=== PATIENT | male | born 1945 | race Caucasian/White ===

== ENCOUNTER → 2019-01-25 | Outpatient (CLI) | payer MEDICARE, OTHER ==
[~2019-01-25] MED LIST: ASP325TEC PO; CATHETER FLUSH 10 ML SYR IV PRN; HOLD METFORMIN - RECEIVED CONTRAST 20 ML VIAL IV SCH; IOHEXOL 350 MG/ML 100 ML (OMNIPAQUE 350) VIAL IV ONE; NS 100 ML (IVPB) BAG IV ONE; RT-ALBUTEROL SULF 2.5 MG/3 ML PRE-MIX VIAL INH ONE; RT-ALBUTEROL SULF 2.5 MG/3 ML PRE-MIX VIAL ONE; TIOT18CA IH
[2019-01-25 13:56] LABS: BUN/CREATININE RATIO 12; CREATININE SERUM 0.74 MG/DL (0.60-1.30); GFR ESTIMATED > 60
--- NOTE | 2019-01-25 14:48 | Diagnostic Imaging Report ---
PROCEDURE: CT chest with contrast only. TECHNIQUE: Multiple contiguous axial images were obtained through the chest after administration of intravenous contrast. Auto Exposure Controls were utilized during the CT exam to meet ALARA standards for radiation dose reduction. DATE: January 25, 2019. COMPARISON: Chest radiographs May 21, 2010. INDICATION: 73-year-old male, shortness of breath. History of chronic obstructive pulmonary disease. FINDINGS: There is a right middle lobe mass on axial image 95 measuring 4.1 x 3.4 cm in axial dimension. There are peripheral predominantly linear opacities in the right lower lobe on axial image 115 and adjacent sequential images most likely relating to scarring and/or atelectasis. There are linear and/or reticulonodular opacities in the left lower lobe focally on axial image 107 which are most suspicious for buckle scarring or sequela of prior infectious or inflammatory etiology. If comparison CT imaging is available, comparison would be gladly made for evaluation of potential stability. There is no additional identified pulmonary nodule specifically concerning for additional site of malignancy. There is no pneumothorax. There is no pleural effusion. The central airways are patent. There is no identified pulmonary embolus. The main pulmonary artery is not abnormally dilated. There are coronary artery calcifications and additional areas of atherosclerotic disease. There is no pericardial effusion. There is a noncalcified right hilar lymph node on axial image 70 which measures 1.4 cm in short axis. 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 There is an additional calcified right hilar as well as additional calcified mediastinal lymph node which likely relates to sequela of prior granulomatous disease. There are small calcified lesions in the liver and spleen also compatible with sequela of prior granulomatous disease. The adrenal glands are unremarkable. There are prominent vascular calcifications. Additional evaluation of the imaged portions of the upper abdomen is unremarkable. There are median sternotomy wires. There is a chronic appearing fracture deformity of the inferior aspect of the left scapula well illustrated on sagittal image 168 and adjacent sequential images. There is no identified bone lesion to suggest bone metastasis. There is partially imaged cervical spine hardware. IMPRESSION: CT CHEST. 1. Right middle lobe mass concerning for malignancy measuring 4.1 x 3.4 cm in axial dimension. 2. 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 3. No identified additional lesion to suggest an additional site of metastatic disease. 4. Emphysema. Dictated by: Dictated on workstation # [id number]
== END ==
LOC: RAD 13:28
PROVIDERS: ATTEND Nurse Practitioner Family
DX: J43.9 Emphysema, unspecified (principal); R91.8 Other nonspecific abnormal finding of lung field; R59.0 Localized enlarged lymph nodes; F17.210 Nicotine dependence, cigarettes, uncomplicated; Z98.890 Other specified postprocedural states
CPT/HCPCS: 36415; 71260; 82565; 84520; 94060; 94726; 94729

== ENCOUNTER 2019-02-06 05:30 | Outpatient (CLI) | payer MEDICARE, OTHER ==
[~2019-02-06] VITALS: Ht 180 cm; Wt 68.1 kg
[~2019-02-06 05:30] MED LIST changes: -CATHETER FLUSH 10 ML SYR IV PRN; -HOLD METFORMIN - RECEIVED CONTRAST 20 ML VIAL IV SCH; -IOHEXOL 350 MG/ML 100 ML (OMNIPAQUE 350) VIAL IV ONE; -NS 100 ML (IVPB) BAG IV ONE; -RT-ALBUTEROL SULF 2.5 MG/3 ML PRE-MIX VIAL INH ONE; -RT-ALBUTEROL SULF 2.5 MG/3 ML PRE-MIX VIAL ONE
[2019-02-06] MEDS ORDERED: PRAV20TA3 PO (16:00)
[2019-02-06] MEDS ORDERED: CLOP75TA28 PO (16:00)
[2019-02-06] MEDS ORDERED: TAMS0.4C98 PO (16:00)
[2019-02-06] MEDS ORDERED: IPRA3AMP31 IH (16:00)
[2019-02-06] MEDS ORDERED: TIOT4MIS3 IH (16:00)
== END 2019-02-06 15:51 | disposition home or self-care (01) ==
LOC: PREOP 05:30
PROVIDERS: ATTEND Internal Medicine Critical Care Medicine
DX: Z01.818 Encounter for other preprocedural examination (principal)

== ENCOUNTER 2019-02-13 06:25 | Day surgery (SDC) | payer MEDICARE, OTHER ==
[2019-02-13] VITALS (9 sets, daily range): BP systolic 103–128; BP diastolic 57–95
[~2019-02-13] VITALS: Ht 180.2 cm; Wt 68.1 kg
[~2019-02-13 06:25] MED LIST changes: +CLOP75TA28 PO; +IPRA3AMP31 IH; +PRAV20TA3 PO; +TAMS0.4C98 PO; +TIOT4MIS3 IH
[2019-02-13] MEDS ORDERED: LIDOCAINE PF 1% 2 ML VIAL IJ ONE (06:26)
[2019-02-13] MEDS ORDERED: LIDOCAINE PF 2% 5 ML (XYLOCAINE) VIAL INJ ONE (06:26)
[2019-02-13] MEDS ORDERED: LACTATED RINGERS 1,000 ML IV STA (06:52)
[2019-02-13] MEDS ORDERED: LACTATED RINGERS 1,000 ML IV ONE ×2 (06:55→08:40)
[2019-02-13] MEDS ORDERED: proPOfol 200 MG/20 ML (DIPRIVAN) VIAL IV ONE (07:10)
[2019-02-13] MEDS ORDERED: SEVOFLURANE (ULTANE) 15 ML INHAL SOLN ONE ×2 (07:10→08:42)
[2019-02-13] MEDS ORDERED: fentaNYL INJECTION 100 MCG/2 ML AMP ONE (07:10)
[2019-02-13] MEDS ORDERED: MIDAZOLAM 2 MG/2 ML (VERSED) VIAL ONE (07:10)
[2019-02-13] MEDS ORDERED: ONDANSETRON 4 MG/2 ML (SDV) Z0FRAN ONE (07:11)
[2019-02-13] MEDS ORDERED: ROCURONIUM 10 MG/ML 5 ML SYRINGE IV ONE (07:11)
[2019-02-13] MEDS ORDERED: NEOSTIGMINE 3 MG/3 ML VIAL ONE (07:11)
[2019-02-13] MEDS ORDERED: LIDOCAINE PF 2% 5 ML (XYLOCAINE) VIAL ONE (07:11)
[2019-02-13] MEDS ORDERED: GLYCOPYRROLATE 0.2 MG/ML (ROBINUL) 2 ML VIAL ONE (07:11)
[2019-02-13] MEDS ORDERED: DEXAMETHASONE 10 MG/ML (DECADRON) 1 ML VIAL ONE (07:11)
[2019-02-13] MEDS ORDERED: PHENYLEPHRINE 100 MCG/ML 10 ML (ANESTHESIA) SYR ONE (07:37)
[2019-02-13] MEDS ORDERED: morphine INJ 10 MG/ML 1ML (SYR OR VIAL) IVP ONE (09:15)
[2019-02-13] MEDS ORDERED: ONDANSETRON 4 MG/2 ML (SDV) Z0FRAN IVP PRN (09:15)
--- NOTE | 2019-02-13 09:15 | Diagnostic Imaging Report ---
INDICATION: Status post bronchoscopy. TIME OF EXAM: 9:05 AM Correlation is made with prior chest from 05/21/2010. FINDINGS: Airspace density in the right lung base is noted. No pneumothorax is seen, status post bronchoscopy. There is no effusion. There are changes of median sternotomy and CABG. There are also postoperative changes in the lower cervical spine. IMPRESSION: 1. No evidence of pneumothorax, status post bronchoscopy. 2. Airspace density in the right lung base is suspicious for infiltrate versus mass. Dictated by: Dictated on workstation # [id number]
--- NOTE | 2019-02-13 09:17 | Pulmonary Procedures ---
Pulmonary Procedures Date of Procedure Date of Service: Feb 13, 2019 Bronch Bronchoscopy with brush x2 of monica, RML BAL, transbronchial brush, transbronchial forcep bx, RLL forcep bx, RUL focep bx and brush. EBUS with transbronchial needle bx of [id number] lymph nodes. The mediastinum was US and only station 10 R was large enough to bx. Preop DX: lung mass with lymphadenopathy PostOP DX: lung mass with lymphadenopathy Complications: None Pt was sedated per anesthesia. Bronchoscopy was advanced through the ET tube and an anatomical undertaken down to the segmental bronchi bilaterally. There was a small nodule RLL which was bx. Bronchoscopy with brush x2 of monica, RML BAL, transbronchial brush, transbronchial forcep bx, RLL forcep bx, RUL focep bx and brush. EBUS with transbronchial needle bx of [id number] lymph nodes. The mediastinum was US and only station 10 R was large enough to bx. Pt tolerated procedure well. No complications noted. RAMIRO TAO DO Feb 13, 2019 09:17 POS
--- NOTE | 2019-02-13 10:24 | Anesthesia-General Post-Op ---
General Patient Condition Mental Status/LOC: Same as Preop Cardiovascular: Satisfactory Nausea/Vomiting: Absent Respiratory: Satisfactory Pain: Controlled Complications: Absent Post Op Complications Complications None Follow Up Care/Instructions Patient Instructions None needed. Anesthesia/Patient Condition Patient Condition Patient is doing well, no complaints, stable vital signs, no apparent adverse anesthesia problems. No complications reported per nursing. AYALA SIU CRNA Feb 13, 2019 10:24 POS
--- NOTE | 2019-02-13 11:10 | Diagnostic Imaging Report ---
INDICATION: Fluoroscopy for bronchoscopy. FINDINGS: Fluoroscopy was provided for Dr. Baumann during bronchoscopy. 99 seconds of fluoroscopic time was utilized. IMPRESSION: Fluoroscopy for bronchoscopy. Dictated by: Dictated on workstation # [id number]
== END 2019-02-13 10:45 | disposition home or self-care (01) ==
LOC: ENDO 06:25
PROVIDERS: ATTEND Internal Medicine Critical Care Medicine
DX: R91.8 Other nonspecific abnormal finding of lung field (principal); R59.1 Generalized enlarged lymph nodes; K21.9 Gastro-esophageal reflux disease without esophagitis; I25.10 Atherosclerotic heart disease of native coronary artery without angina pectoris; F32.9 Major depressive disorder, single episode, unspecified; J44.9 Chronic obstructive pulmonary disease, unspecified; E78.5 Hyperlipidemia, unspecified; F17.210 Nicotine dependence, cigarettes, uncomplicated; Z95.1 Presence of aortocoronary bypass graft; Z79.02 Long term (current) use of antithrombotics/antiplatelets; Z79.899 Other long term (current) drug therapy
CPT/HCPCS: 71045; 87015; 87070; 87077; 87101; 87116; 87186; 87205; 87206; 94640

== ENCOUNTER 2019-03-01 07:02 | Inpatient (IN) | payer MEDICARE, OTHER ==
[~2019-03-01] VITALS: Ht 180.3 cm; Wt 80.7 kg
[2019-03-01] VITALS (24 sets, daily range): BP systolic 74–135; BP diastolic 44–78
[2019-03-01 07:59] LABS: HEMOGLOBIN 14.3 G/DL (13.3-17.7); MEAN PLATELET VOLUME 9.6 FL (7.4-10.4); RED CELL DISTRIBUTION WIDTH 14.9 % (10.0-14.5); WHITE BLOOD COUNT 7.7 10^3/uL (4.3-11.0)
[2019-03-01 08:13] LABS: PROTHROMBIN TIME PATIENT 13.7 SEC (12.2-14.7)
[2019-03-01] MEDS ORDERED: NS IV 1000 ML 1,000 ML IV STA (08:28)
[2019-03-01] MEDS ORDERED: MIDAZOLAM 2 MG/2 ML (VERSED) VIAL IVP ONE (08:30)
[2019-03-01] MEDS ORDERED: LIDOCAINE 1% INJ 20 ML 20 ML VIAL INJ ONE ×2 (08:30→18:00)
[2019-03-01] MEDS ORDERED: fentaNYL INJECTION 100 MCG/2 ML AMP IVP ONE (08:30)
[2019-03-01] MEDS ORDERED: HYDROcodone/APAP 5 MG/325 MG (LORTAB) TAB PO PRN (10:00)
--- NOTE | 2019-03-01 10:02 | Diagnostic Imaging Report ---
INDICATION: Right lung mass, status post biopsy. TIME OF EXAM: 9:48 AM Correlation is made with the preprocedure radiograph from 02/13/2019. Changes of median sternotomy and CABG are noted. Right lung mass in the right base again noted. There is a tiny right apical pneumothorax. Left lung is clear. No effusion is seen. IMPRESSION: Tiny right apical pneumothorax, status post biopsy of right lung mass. Followup chest radiograph in 2 hours will be performed to further evaluate pneumothorax. Dictated by: Dictated on workstation # [id number]
--- NOTE | 2019-03-01 10:20 | NUR ---
PT C/O OF SEVERE NAUSEA, DR. SEGURA NOTIFIED AND NEW ORDER RECEIVED FOR ZOFRAN, SEE EMAR FOR DETAILS.
[2019-03-01] MEDS ORDERED: ONDANSETRON 4 MG/2 ML (SDV) Z0FRAN ONE (10:27)
[2019-03-01] MEDS ORDERED: ONDANSETRON 4 MG/2 ML (SDV) Z0FRAN IV PRN (10:30)
--- NOTE | 2019-03-01 10:30 | NUR ---
UPON ENTERING PT'S ROOM, PT O2 SAT 87% ON RA, PT REPORTS FEELING SHORT OF BREATH, AND THAT HIS CHEST OVER CT GUIDED BIOPSY SITE FEELS "TIGHT" LIKE HIS LUNG IS "COLLAPSING". BREATH SOUNDS AUDIBLE THROUGHOUT, 02 2L/NC APPLIED W/ STEADY RETURN TO O2 SAT OF 93%. PT C/O PAIN TO BIOPSY SITE RATES PAIN 9/10. RADIOLOGY CALLED AND DR. SEGURA UPDATED ON PT STATUS, NEW ORDER TO REPEAT A STAT CHEST XRAY.
--- NOTE | 2019-03-01 10:32 | Diagnostic Imaging Report ---
INDICATION: Right lung mass. Patient presents for CT-guided biopsy. FINDINGS: Patient was brought to the CT suite, placed on table in the supine position. Axial imaging through the chest was performed to evaluate appropriate entry site. Right chest was then prepped and draped in the usual sterile fashion. Procedure was performed utilizing conscious sedation with radiology nursing and constant patient monitoring. Patient was administered a total of 1 mg of Versed intravenously and 100 mcg of fentanyl intravenously. Total procedure time was 8 minutes. A small amount of lidocaine was utilized for local anesthesia. A 20-gauge coaxial Temno needle was advanced and placed with its tip along the margin of the spiculated mass in the right middle lobe. A total of four core biopsies were obtained. Patient did develop a small pneumothorax during the procedure. Needle was removed during injection of a blood patch. Follow-up imaging does show a small right basilar anterior pneumothorax. Patient tolerated the procedure well. IMPRESSION: CT-guided right lung mass biopsy, utilizing conscious sedation. Patient did have a small pneumothorax. Serial radiography will be performed of the chest to manage the pneumothorax. Dictated by: Dictated on workstation # [id number]
--- NOTE | 2019-03-01 10:50 | NUR ---
02 SAT 88% ON 2L/NC, 02 INCREASED TO 4L/NC. O2 SAT INCREASED TO 95%.
--- NOTE | 2019-03-01 11:00 | NUR ---
SPOKE WITH DR. SEGURA WHO WILL BE COMMUNICATING WITH DR. TAO TO PLAN POSSIBLE OBSERVATION STAY.
--- NOTE | 2019-03-01 11:41 | Diagnostic Imaging Report ---
INDICATION: Shortness of breath. Patient is status post right lung biopsy. Correlation is made with study performed immediately post procedure. There is a right-sided pneumothorax. The current study was performed in expiration compared with inspiration on the post procedure radiograph. The pneumothorax on the right is approximately 20%. Small amount gas along the right chest wall is noted. Trachea remains midline. There are changes of median sternotomy and CABG. The left lung is clear. Right base lung mass is again seen. IMPRESSION: Right-sided pneumothorax approximately 20%. Results were discussed with Dr. Baumann. Patient will be admitted for observation overnight. Dictated by: Dictated on workstation # [id number]
--- NOTE | 2019-03-01 11:57 | Pre-Op Note & Conscious Sedat ---
Pre-Operative Progress Note H&P Reviewed The H&P was reviewed, patient examined and no changes noted. Date H&P Reviewed: Mar 01, 2019 Time H&P Reviewed: 09:00 Pre-Op Diagnosis: Lung mass Conscious Sedation Pre-Proced Time 09:00 ASA Score 2 For ASA 3 and 4: Consider anesthesia and medical clearance. Also, for patients with a history of failed moderate sedation consider anesthesia. Airway Lungs Heart ASA score ASA 1: a normal healthy patient ASA 2: a patient with a mild systemic disease (mid diabetes, controlled hypertension, obesity ASA 3: a patient with a severe systemic disease that limits activity (angina, COPD, prior Myocardial infarction) ASA 4: a patient with an incapacitating disease that is a constant threat to life (CHF, renal failure) ASA 5: a moribund patient not expected to survive 24 hrs. (ruptured aneurysm) ASA 6: a declared brain- patient whose organs are being harvested. For emergent operations, add the letter E after the classification Mallampati Classification Grade 2 Sedation Plan Analgesia, Amnesia, Plan communicated to team members, Discussed options with patient/fam, Discussed risks with patient/fam The patient is an appropriate candidate to undergo the planned procedure, sedation, and anesthesia. The patient immediately re-assessed prior to indication. DENIA SEGURA MD Mar 01, 2019 11:57 POS
--- NOTE | 2019-03-01 12:00 | NUR ---
REPORT CALLED TO JAYDEN JUNIOR IN ICU
--- NOTE | 2019-03-01 12:06 | Pulmonary Consultation ---
SHANNAN TONEY MEDICAL STUDENT 03/01/19 1206: History of Present Illness History of Present Illness Date of Consultation 03/01/19 11:58 Time Seen by Provider: 11:58 Date of Admission History of Present Illness 73 year old male with PMHx of COPD, CAD, CABGx2 in 1994, current every day smoker of 1ppd who was admitted today after ct guided bx for right lung mass. Pt began having increasing SOB after procedure, and was placed on 4L NC to maintain sats. Pt states that he does not require any home O2. Pt denies any CP, recent fever or chills, abd pain, N/V/D, admits recent pneumonia for which he was given Abx but cannot recall which one. Allergies and Home Medications Allergies Coded Allergies: No Known Drug Allergies (Unverified , 02/06/19) Home Medications Albuterol Sulfate 2.5 Mg/3 Ml Vial.neb, 2.5 MG NEB Q4H PRN for SHORTNESS OF BREATH, (Reported) Albuterol Sulfate 1 Puff Puff, 2 PUFF INH Q4H PRN for SHORTNESS OF BREATH, (Reported) Cefdinir 300 Mg Capsule, 300 MG PO BID Prescribed by: RODRICK CABRERA on 03/04/19 0950 Clopidogrel Bisulfate 75 Mg Tablet, 75 MG PO 0700, (Reported) Fluticasone/Umeclidin/Vilanter 1 Each Blst.w.dev, 1 PUFF INH 0700, (Reported) Pravastatin Sodium 20 Mg Tablet, 20 MG PO 0100, (Reported) Prednisone 10 Mg Tab.ds.pk, 10 MG PO DAILY Take 6 tabs(60mg)daily,decrease by 1 tab(10MG)daily. Prescribed by: RODRICK CABRERA on 03/04/19 0950 Tamsulosin HCl 0.4 Mg Cap, 0.4 MG PO 1730, (Reported) Past Zjndsry-Edkzdf-Ynrzfe Hx Past Med/Social Hx: Reviewed Nursing Past Med/Soc Hx, Reviewed and Corrections made Patient Social History Alcohol Use: Occasionally Uses Smoking Status: Current Everyday Smoker Type Used: Cigarettes (1ppd) 2nd Hand Smoke Exposure: Yes Recent Foreign Travel: No Contact w/Someone Who Travel: No Recent Infectious Disease Expo: No Recent Hopitalizations: No Immunizations Up To Date Tetanus Booster (TDap): Unknown Date of Influenza Vaccine: Jan 21, 2019 Seasonal Allergies Seasonal Allergies: No Past Medical History Surgeries: Yes (CORONARY BYPASS AND STENTS, BILAT ROTATOR CUFF, KNEE SCOPE, NECK) CABG Respiratory: Yes COPD Currently Using CPAP: No Currently Using BIPAP: No Cardiac: Yes Coronary Artery Disease, High Cholesterol Neurological: No Reproductive Disorders: No Sexually Transmitted Disease: No HIV/AIDS: No Genitourinary: Yes Prostate Problems Gastrointestinal: Yes Gastroesophageal Reflux, Polyps Musculoskeletal: Yes Arthritis Endocrine: No HEENT: Yes (GLASSES, DENTURES) Loss of Vision: Denies Hearing Impairment: Denies Cancer: No Psychosocial: Yes Depression Integumentary: No Blood Disorders: No Adverse Reaction/Blood Tranf: No (N/A) Review of Systems Constitutional: No: Fever, Chills Eyes: No: Pain ENT: Other; No: Mouth swelling Respiratory: Cough, Shortness of breath Cardiovascular: No: Chest Pain, Palpitations Gastrointestinal: No: Nausea, Vomiting, Abdominal Pain, Diarrhea Genitourinary: No Incontinence Musculoskeletal: No: back pain Skin: No: Rash Neurological: No: Weakness, Change in speech Sepsis Event Evaluation Height, Weight, BMI Height: '" Weight: lbs. oz. kg; 20.97 BMI Method: Exam Exam Vital Signs Date Time Temp Pulse Resp B/P (MAP) Pulse Ox O2 Delivery O2 Flow Rate FiO2 03/01/19 09:40 78 13 111/78 93 Room Air 03/01/19 09:35 78 13 124/60 93 Room Air 03/01/19 09:30 74 11 113/64 93 Room Air 03/01/19 09:25 72 11 135/64 95 Room Air 03/01/19 09:20 70 10 124/66 96 Room Air Height & Weight Height: '" Weight: lbs. oz. kg; 20.97 BMI Method: General Appearance: WD/WN, Mild Distress HEENT: PERRL/EOMI Neck: Full Range of Motion, Normal Inspection Respiratory: No No Respiratory Distress, No Accessory Muscle Use; Crackles, Decreased Breath Sounds (on right side), Wheezing, Other (tenderness in area of Bx site on right upper lateral chest) Cardiovascular: Regular Rate, Rhythm, No Edema Peripheral Pulses: 2+ Dorsalis Pedis (R), 2+ Left Dors-Pedis (L), 2+ Radial Pulses (R), 2+ Radial Pulses (L) Gastrointestinal: normal bowel sounds, non tender, soft Extremity: No Pedal Edema Neurologic/Psychiatric: Alert, Oriented x3, Other (no focal neuro deficit) Skin: Normal Color, Warm/Dry Results Lab Laboratory Tests 03/01/19 07:40 AISLINNJOSR Ranjit DO 03/01/19 1823: History of Present Illness History of Present Illness History of Present Illness 73yo with hx of COPD and recent dx of lung mass now s/p lung bx resulting in right sided intragenic pneumothorax. Pt is not normally on oxygen however he is currently requiring 3 liters of oxygen. Pt is also more SOB and denies CP. Allergies and Home Medications Allergies Coded Allergies: No Known Drug Allergies (Unverified , 02/06/19) Home Medications Albuterol Sulfate 2.5 Mg/3 Ml Vial.neb, 2.5 MG NEB Q4H PRN for SHORTNESS OF BREATH, (Reported) Albuterol Sulfate 1 Puff Puff, 2 PUFF INH Q4H PRN for SHORTNESS OF BREATH, (Reported) Cefdinir 300 Mg Capsule, 300 MG PO BID Prescribed by: RODRICK CABRERA on 03/04/19 0950 Clopidogrel Bisulfate 75 Mg Tablet, 75 MG PO 0700, (Reported) Fluticasone/Umeclidin/Vilanter 1 Each Blst.w.dev, 1 PUFF INH 0700, (Reported) Pravastatin Sodium 20 Mg Tablet, 20 MG PO 0100, (Reported) Prednisone 10 Mg Tab.ds.pk, 10 MG PO DAILY Take 6 tabs(60mg)daily,decrease by 1 tab(10MG)daily. Prescribed by: RODRICK CABRERA on 03/04/19 0950 Tamsulosin HCl 0.4 Mg Cap, 0.4 MG PO 1730, (Reported) Review of Systems Time Seen by Provider: 18:23 Exam Exam General Appearance: WD/WN, Mild Distress HEENT: PERRL/EOMI Neck: Full Range of Motion, Normal Inspection Respiratory: No No Respiratory Distress, No Accessory Muscle Use; Crackles, Decreased Breath Sounds (on right side), Wheezing, Other (tenderness in area of Bx site on right upper lateral chest) Cardiovascular: Regular Rate, Rhythm, No Edema Gastrointestinal: normal bowel sounds, non tender, soft Extremity: No Pedal Edema Neurologic/Psychiatric: Alert, Oriented x3 Skin: Normal Color, Warm/Dry Assessment/Plan Assessment/Plan Lung mass s/p CT bx -Cytology pending Hypotension - probably secondary to NPO -Give a liter bolus of LR then Run at 100cc/hr Iatrogenic right PTX s/p chest tube -CXR is pending -Continue oxygen - Supervisory-Addendum Brief Verification & Attestation Participated in pt care: history Personally performed: exam, history Care discussed with: Medical Student Procedures: n/a Verification and Attestation of Medical Student E/M Service A medical student performed and documented this service in my presence. I reviewed and verified all information documented by the medical student and made modifications to such information, when appropriate. I personally performed the physical exam and medical decision making. Josr Baumann, Mar 07, 2019,05:13 SHANNAN TONEY MEDICAL STUDENT Mar 01, 2019 12:06 JOSR TABOR DO Mar 01, 2019 18:23 POS
--- NOTE | 2019-03-01 12:09 | Diagnostic Imaging Report ---
INDICATION: Post lung biopsy. TIME OF EXAM: 11:58 AM Correlation is made with prior study earlier same day. Expiratory radiograph again demonstrates right-sided pneumothorax, stable when compared with prior exam. There is some increase in amount of subcutaneous emphysema along the right chest wall as well as the tissues of the lower right neck. There are changes of median sternotomy and CABG. The left lung remains clear. IMPRESSION: Stable right-sided pneumothorax. There has been some increase in subcutaneous emphysema along the right chest wall since earlier radiograph. Dictated by: Dictated on workstation # [id number]
--- NOTE | 2019-03-01 12:40 | NUR ---
DR TAO ORDERED REPEAT CHEST X-RAY IN 4 HOURS. KEEP NPO AND NOTFY DR TAO WITH RESULTS.
[2019-03-01] MEDS ORDERED: FLUT1BLS3 INH (13:46)
[2019-03-01] MEDS ORDERED: ALBU2.5V4 NEB (13:46)
[2019-03-01] MEDS ORDERED: TAMS0.4C98 PO (13:46)
[2019-03-01] MEDS ORDERED: RT-ALBUINH INH (13:46)
--- NOTE | 2019-03-01 16:09 | Diagnostic Imaging Report ---
Indication: Pneumothorax Portable chest 4:01 PM Comparison made study from earlier today. There continues be a right pneumothorax. Measures 2.4 cm at the apex which is unchanged from earlier in the day. There is a dense area of consolidation at the right medial lung base. Patient had prior CABG surgery. IMPRESSION: Right lower lobe consolidation. Stable right pneumothorax. Dictated by: Dictated on workstation # [id number]
[2019-03-01] MEDS ORDERED: fentaNYL INJECTION 100 MCG/2 ML AMP ONE (17:35)
[2019-03-01] MEDS ORDERED: MIDAZOLAM 5 MG/5 ML (VERSED) VIAL ONE (17:35)
[2019-03-01] MEDS ORDERED: LIDOCAINE 1% INJ 20 ML 20 ML VIAL ONE (17:40)
[2019-03-01] MEDS ORDERED: LACTATED RINGERS 1,000 ML IV ONE ×2 (17:44→18:00)
[2019-03-01] MEDS ORDERED: MIDAZOLAM 5 MG/5 ML (VERSED) VIAL IVP ONE (17:45)
[2019-03-01] MEDS ORDERED: fentaNYL INJECTION 100 MCG/2 ML AMP IVP PRN (17:45)
--- NOTE | 2019-03-01 18:18 | Pulmonary Procedures ---
Pulmonary Procedures Date of Procedure Date of Service: Mar 01, 2019 Chest Tube : Chest Tube Position: Right Upper (Anterior midclavicular line) Size of Estonian Tube (cm): 14 Chest Tube Procedure: betadine prep, sterile drapes applied, sterile dressing applied Anesthesia: 1% Lidocaine Volume Anesthetic (ccs): 6 Bravo of Air Cross: No (Thoracic vent used) Tube Drainage: see nurses notes Tube Sutured to Skin: Yes Post Procedure CXR?: Yes (pending) RAMIRO TAO DO Mar 01, 2019 18:18 POS
[2019-03-01] MEDS ORDERED: ONDANSETRON 4 MG/2 ML (SDV) Z0FRAN IVP PRN (18:30)
--- NOTE | 2019-03-01 18:44 | Diagnostic Imaging Report ---
EXAMINATION: Chest 1 view. HISTORY: Chest tube. FINDINGS: Comparison is 03/01/2019. Median sternotomy wires are aligned. Right-sided chest tube has been placed. Right-sided pneumothorax has significantly decreased in size and is now small. Subcutaneous gas in the right chest wall appears unchanged. The right lung base is stable. No left-sided pneumothorax. Heart size is normal. IMPRESSION: 1. Decrease in size of right pneumothorax status post chest tube placement. Dictated by: Dictated on workstation # [id number]
[2019-03-01] MEDS ORDERED: CATHETER FLUSH 10 ML SYR IV PRN (18:45)
[2019-03-01] MEDS: LACTATED RINGERS 1,000 ML IV SCH (20:02)
--- NOTE | 2019-03-01 20:08 | NUR ---
1735 DR TAO ORDERED VERSED AND FENTANYL AT BEDSIDE. 1740- 2 MG OF VERSED GIVEN IV PER DR TAO. 1747- 1 LITER OF LACTATED RINGERS ORDERED TO RUN WIDE OPEN. BOLUS STARTED 1748- 50 MCG OF FENTANYL GIVEN IV AND -1 MG OF VERSED IV GIVEN PER DR TAO. 175- DR TAO INJECTED RIGHT CHEST WITH LIDOCAINE. 1756- 1 MG OF VERSED IV GIVEN PER DR TAO. AND 25 MCG OF FENTANYL IV GIVEN PER DR TAO. 175 CHEST TUBE PLACED IN RIGHT CHEST. 1804 SUTURES PLACED 1808 CHEST HOOKED TO SUCTION. SANFORD RN AND MEDINA RN TO WITNESS WASTE OF 1 MG OF VERSED AND 25 MCG OF FENTANYL. 1820 PT IS RESTING WITH EYES SHUT. VITALS STABLE. VOICES NO COMPLAINTS. CHEST TUBE SITE HAS SCANT BLOOD AT SITE. PT EDUCATED NOT TO PULL ON CHEST TUBE AND NOTIFY NURSE OF ANY SOA OR INCREASE IN CHEST PAIN. WILL CONTINUE TO MONITOR.
--- NOTE | 2019-03-01 20:22 | NUR ---
[address] TAO OF CHEST X-RAY RESULTS. ORDERS GIVEN TO KEEP PT NPO. GATHER SUPPLIES FOR CHEST TUBE PLACEMENT. DR TAO NOTIFIED PT IS STILL REQUIRING 3 L OF OXYGEN TO MAINTAIN OXYGEN SATURATIONS BETWEEN 90-92.
[2019-03-02] VITALS (24 sets, daily range): BP systolic 98–137; BP diastolic 51–91
[2019-03-02] MEDS: morphine INJ 4 MG/ML 1 ML (VIAL/SYRINGE) IVP PRN ×4 (01:02→09:04)
[2019-03-02] MEDS ORDERED: LIDOCAINE UROJET 2% GEL 10 ML PKG TOP ONE (02:30)
[2019-03-02] MEDS: LACTATED RINGERS 1,000 ML IV SCH ×2 (04:15→15:02)
[2019-03-02 04:17] LABS: BASOPHILS % (AUTO) 0 % (0-10); EOSINOPHILS # (AUTO) 0.1 10^3/uL (0.0-0.3); EOSINOPHILS % (AUTO) 1 % (0-10); HEMATOCRIT 40 % (40-54); HEMOGLOBIN 13.2 G/DL (13.3-17.7); LYMPHOCYTES # (AUTO) 1.4 X 10^3 (1.0-4.0); LYMPHOCYTES % (AUTO) 15 % (12-44); MEAN CORPUSCULAR HEMOGLOBIN 29 PG (25-34); MEAN CORPUSCULAR HGB CONC 33 G/DL (32-36); MEAN CORPUSCULAR VOLUME 89 FL (80-99); MEAN PLATELET VOLUME 9.3 FL (7.4-10.4); MONOCYTES # (AUTO) 0.6 X 10^3 (0.0-1.0); MONOCYTES % (AUTO) 7 % (0-12); NEUTROPHILS # (AUTO) 6.8 X 10^3 (1.8-7.8); NEUTROPHILS % (AUTO) 77 % (42-75); PLATELET COUNT 195 10^3/uL (130-400); RED CELL DISTRIBUTION WIDTH 15.2 % (10.0-14.5); WHITE BLOOD COUNT 8.9 10^3/uL (4.3-11.0)
[2019-03-02 04:39] LABS: BUN/CREATININE RATIO 20; CARBON DIOXIDE 26 MMOL/L (21-32); CHLORIDE 104 MMOL/L (98-107); GFR ESTIMATED > 60; GLUCOSE 114 MG/DL (70-105); MAGNESIUM 2.1 MG/DL (1.6-2.4); PHOSPHORUS 3.4 MG/DL (2.3-4.7); POTASSIUM 4.4 MMOL/L (3.6-5.0); SODIUM 136 MMOL/L (135-145)
[2019-03-02] MEDS: KCL 20 MEQ TAB (K-DUR) PO SCH (05:00)
[2019-03-02] MEDS: MAGNESIUM 1 GM/100 ML IVPB 100 ML IV SCH (05:00)
[2019-03-02] MEDS: POTASSIUM CL 10MEQ/50ML IVPB 50 ML IV SCH (05:00)
--- NOTE | 2019-03-02 05:31 | Pulmonary Progress Note ---
Subjective Time Seen by a Provider: 06:37 Subjective/Events-last exam Complains of cough and SOB. Sepsis Event Evaluation Height, Weight, BMI Height: '" Weight: lbs. oz. kg; 23.00 BMI Method: Exam Exam Vital Signs Date Time Temp Pulse Resp B/P (MAP) Pulse Ox O2 Delivery O2 Flow Rate FiO2 03/02/19 04:01 88 03/02/19 04:00 36.8 03/02/19 04:00 95 Nasal Cannula 3.00 03/02/19 03:00 71 26 109/57 (74) 93 Nasal Cannula 4.00 03/02/19 02:00 78 20 98/65 (76) 90 Nasal Cannula 4.00 03/02/19 01:00 88 03/02/19 01:00 88 34 135/62 (86) 93 Nasal Cannula 4.00 03/02/19 00:00 95 Nasal Cannula 3.00 03/02/19 00:00 73 39 114/59 (77) 94 Nasal Cannula 4.00 03/02/19 00:00 36.8 03/01/19 23:50 Nasal Cannula 4.00 03/01/19 23:00 72 34 119/65 (83) 95 Nasal Cannula 4.00 03/01/19 22:00 81 21 111/63 (79) 95 Nasal Cannula 4.00 03/01/19 21:26 36.9 03/01/19 21:00 80 26 106/59 (75) 95 Nasal Cannula 4.00 03/01/19 20:00 95 Nasal Cannula 3.00 03/01/19 20:00 80 19 104/58 (73) 94 Nasal Cannula 4.00 03/01/19 20:00 36.9 03/01/19 19:00 80 26 115/66 (82) 94 Nasal Cannula 4.00 03/01/19 19:00 80 03/01/19 17:00 89 15 75/59 (64) 92 Nasal Cannula 4.00 03/01/19 16:00 82 14 97/62 (74) 94 Nasal Cannula 4.00 03/01/19 16:00 36.4 03/01/19 16:00 95 Nasal Cannula 3.00 03/01/19 15:00 77 17 81/47 (58) Nasal Cannula 4.00 03/01/19 14:00 75 12 84/56 (65) Nasal Cannula 4.00 03/01/19 13:15 75 11 98/57 (71) 96 Nasal Cannula 4.00 03/01/19 13:09 88 03/01/19 12:40 96 Nasal Cannula 4.00 03/01/19 12:00 36.4 88 20 97/63 (74) 95 Nasal Cannula 4.00 03/01/19 12:00 36.6 78 13 111/78 94 Room Air 03/01/19 11:45 36.4 82 20 111/55 (73) 95 Nasal Cannula 4.00 03/01/19 11:30 36.4 82 20 101/62 (75) 95 Nasal Cannula 4.00 03/01/19 11:15 36.4 80 20 119/60 (79) 95 Nasal Cannula 4.00 03/01/19 11:00 36.6 74 20 115/63 (80) 95 Nasal Cannula 4.00 03/01/19 10:45 36.6 80 22 115/63 (80) 95 Nasal Cannula 4.00 03/01/19 10:30 36.6 74 24 100/63 (75) 86 Room Air 03/01/19 10:15 36.6 68 20 93/56 (68) 92 Room Air 03/01/19 09:55 36.6 61 20 74/44 (54) 92 Room Air 03/01/19 09:40 78 13 111/78 93 Room Air 03/01/19 09:35 78 13 124/60 93 Room Air 03/01/19 09:30 74 11 113/64 93 Room Air 03/01/19 09:25 72 11 135/64 95 Room Air 03/01/19 09:20 70 10 124/66 96 Room Air I & O 03/02/19 07:00 Intake Total 2075 ml Output Total 840 ml Balance 1235 ml Height & Weight Height: '" Weight: lbs. oz. kg; 23.00 BMI Method: General Appearance: WD/WN, Mild Distress HEENT: PERRL/EOMI Neck: Full Range of Motion, Normal Inspection Respiratory: Crackles, Decreased Breath Sounds, Wheezing, Other Cardiovascular: Regular Rate, Rhythm, No Edema Capillary Refill: Less Than 3 Seconds Peripheral Pulses: 2+ Dorsalis Pedis (R), 2+ Left Dors-Pedis (L), 2+ Radial Pulses (R), 2+ Radial Pulses (L) Gastrointestinal: normal bowel sounds, non tender, soft Extremity: No Pedal Edema Neurologic/Psychiatric: Alert, Oriented x3 Skin: Normal Color, Warm/Dry Results Lab Laboratory Tests 03/01/19 07:40 03/02/19 04:08 Assessment/Plan Assessment/Plan Lung mass s/p CT bx -Cytology pending Hypotension - probably secondary to NPO - LR 100cc/hr COPDAE -Start Duoneb QID and advair -Start Solumedrol 40 IV Q 6 -Oxygen -- PT does not have home 02 Strong nonproductive cough -SVNS -Solumedrol Iatrogenic right PTX s/p chest tube -CXR is pending -Continue oxygen Urinary retention secondary to BPH -S/p dash catheter -Restart Flomax GI PPX -Start Lovenox Sub Q daily. HX of RAMIRO ZAFAR DO Mar 02, 2019 05:31 POS
[2019-03-02] MEDS ORDERED: morphine INJ 4 MG/ML 1 ML (VIAL/SYRINGE) IVP PRN (06:15)
--- NOTE | 2019-03-02 06:20 | NUR ---
Dr. Baumann updated patient's , Alice via telephone at this time.
[2019-03-02] MEDS ORDERED: RT-ALBUTEROL/IPRATROPIUM 3 ML (DUONEB) VIAL INH PRN (06:30)
[2019-03-02] MEDS: BENZONATATE 100 MG (TESSALON) CAPSULE PO PRN (06:51)
[2019-03-02] MEDS: ENOXAPARIN 40 MG/0.4 ML (LOVENOX) SYR SC SCH (06:52)
[2019-03-02] MEDS ORDERED: RT-ALBUTEROL/IPRATROPIUM 3 ML (DUONEB) VIAL INH SCH (07:00)
--- NOTE | 2019-03-02 07:45 | Diagnostic Imaging Report ---
Indication: Shortness of breath Portable chest 4:02 AM There is a round opacity in the right lower lung that measures 4 cm in diameter. There is subcutaneous emphysema in the right chest wall. There is no effusion or pneumothorax. There are postoperative changes from a median sternotomy. IMPRESSION: Round opacity right lower lung appears smaller compared to the previous day suggesting it could be pneumonia that is resolving. Dictated by: Dictated on workstation # [id number]
[2019-03-02] MEDS: HYDROcodone/APAP 7.5 MG/325 MG (LORTAB, LORCET PLUS) TABLET PO PRN ×2 (08:25→15:58)
[2019-03-02] MEDS: RT-ALBUTEROL/IPRATROPIUM 3 ML (DUONEB) VIAL INH SCH ×4 (10:41→21:40)
[2019-03-02] MEDS: RT-ADVAIR HFA 115/21 MCG PER PUFF IH SCH ×2 (10:43→18:55)
--- NOTE | 2019-03-02 10:45 | History & Physical-Hospitalist ---
History of Present Illness HPI/Chief Complaint on the patient underwent fine-needle biopsy of a PET scan positive right sided lung mass. Procedure was complicated by pneumothorax requiring chest tube placement and overnight monitoring. Patient reports pain at chest tube site. Date Seen 03/02/19 Time Seen by a Provider: 07:30 Attending Physician Daniella Del Valle MD PCP No,Local Physician Referring Physician Date of Admission Mar 01, 2019 at 13:03 Home Medications & Allergies Home Medications Reviewed patient Home Medication Reconciliation performed by pharmacy medication reconciliations organic extractions technician and/or nursing. Patients Allergies have been reviewed. Allergies Allergies Coded Allergies No Known Drug Allergies (Omjckdyvjt85/23/19) Past Kejkejd-Aydxba-Ccugpi Hx Past Med/Social Hx: Reviewed Nursing Past Med/Soc Hx, Reviewed and Corrections made Patient Social History Alcohol Use: Rarely Uses Number of Drinks Today: 0 Alcohol Beverage of Choice: Beer Recreational Drug Use: No Smoking Status: Current Everyday Smoker Type Used: Cigarettes 2nd Hand Smoke Exposure: Yes Physical Abuse Screen: No Sexual Abuse: No Recent Foreign Travel: No Contact w/other who traveled: No Recent Hopitalizations: No Recent Infectious Disease Expo: No (PNA FEW WEEKS AGO) Immunizations Up To Date Tetanus Booster (TDap): Unknown Pediatric: No Date of Pneumonia Vaccine: Feb 15, 2013 Date of Influenza Vaccine: Jan 21, 2019 Seasonal Allergies Seasonal Allergies: No Past Medical History Surgeries: CABG Currently Using CPAP: No Currently Using BIPAP: No Cardiac: Coronary Artery Disease, High Cholesterol Reproductive: No Sexually Transmitted Disease: No HIV/AIDS: No Genitourinary: Benign Prostatic Hyperpl Gastrointestinal: Gastroesophageal Reflux, Polyps Musculoskeletal: Back Injury, Fractures HEENT: Cataract Loss of Vision: Denies Hearing Impairment: Hard of Hearing Psychosocial: Depression History of Blood Disorders: No Adverse Reaction to Blood Cabrera: No (N/A) Review of Systems Constitutional: no symptoms reported Respiratory: cough (mild), short of breath (resolved after chest tube placement) Physical Exam Physical Exam Vital Signs Vital Signs - First Documented 03/01/19 03/01/19 03/01/19 09:20 09:55 10:45 Temp 36.6 Pulse 70 Resp 10 B/P (MAP) 124/66 Pulse Ox 96 O2 Delivery Room Air O2 Flow Rate 4.00 Capillary Refill : Less Than 3 Seconds Height, Weight, BMI Height: '" Weight: lbs. oz. kg; 23.00 BMI Method: General Appearance: Mild Distress Respiratory: No Accessory Muscle Use, No Respiratory Distress, Other (mild expiratory wheezing chest otherwise clear) Cardiovascular: Regular Rate, Rhythm, No Edema, No Gallop, No JVD, No Murmur, Normal Peripheral Pulses Gastrointestinal: Normal Bowel Sounds, No Organomegaly, No Pulsatile Mass, Non Tender, Soft Extremity: Normal Capillary Refill, Normal Inspection, Normal Range of Motion, Non Tender, No Calf Tenderness, No Pedal Edema Results Results/Procedures Labs Laboratory Tests 03/01/19 07:40 03/02/19 04:08 Patient resulted labs reviewed. Assessment/Plan Admission Diagnosis 1. Pneumothorax post fine needle biopsy of her right sided PET scan positive lung mass in a smoker high risk for malignancy. With chest tube placement pneumothorax resolved management per Dr. Baumann. 2. Underlying tobacco-related COPD. Admission Status: Inpatient Order (span 2 midnights) Reason for Inpatient Admission: see admission diagnosis Clinical Quality Measures DVT/VTE Risk/Contraindication: Risk Factor Score Per Nursin RFS Level Per Nursing on Admit: 4+=Very High HANNAH WHITAKER MD Mar 02, 2019 10:45 POS
[2019-03-02] MEDS: methylPREDNISolone 40 MG/ML (Solu-MEDROL) VIAL IV SCH ×3 (12:07→23:07)
[2019-03-02] MEDS: TAMSULOSIN 0.4 MG (FLOMAX) CAP PO SCH (17:57)
[2019-03-03] VITALS (24 sets, daily range): BP systolic 105–148; BP diastolic 55–77
[2019-03-03] MEDS: LACTATED RINGERS 1,000 ML IV SCH ×2 (00:32→01:23)
[2019-03-03] MEDS: SIMvastatin 10 MG (ZOCOR) TAB PO SCH (00:32)
[2019-03-03] MEDS: RT-ALBUTEROL/IPRATROPIUM 3 ML (DUONEB) VIAL INH SCH ×6 (02:25→22:19)
[2019-03-03 03:08] LABS: BASOPHILS % (AUTO) 0 % (0-10); EOSINOPHILS % (AUTO) 0 % (0-10); HEMATOCRIT 40 % (40-54); HEMOGLOBIN 13.6 G/DL (13.3-17.7); LYMPHOCYTES # (AUTO) 0.4 X 10^3 (1.0-4.0); LYMPHOCYTES % (AUTO) 4 % (12-44); MEAN CORPUSCULAR HEMOGLOBIN 30 PG (25-34); MEAN CORPUSCULAR HGB CONC 34 G/DL (32-36); MEAN CORPUSCULAR VOLUME 88 FL (80-99); MEAN PLATELET VOLUME 9.5 FL (7.4-10.4); MONOCYTES # (AUTO) 0.3 X 10^3 (0.0-1.0); MONOCYTES % (AUTO) 3 % (0-12); NEUTROPHILS # (AUTO) 9.3 X 10^3 (1.8-7.8); NEUTROPHILS % (AUTO) 93 % (42-75); PLATELET COUNT 180 10^3/uL (130-400); RED CELL DISTRIBUTION WIDTH 14.6 % (10.0-14.5); WHITE BLOOD COUNT 10.1 10^3/uL (4.3-11.0)
[2019-03-03 03:29] LABS: BUN/CREATININE RATIO 18; CALCIUM 9.3 MG/DL (8.5-10.1); CARBON DIOXIDE 22 MMOL/L (21-32); CHLORIDE 103 MMOL/L (98-107); CREATININE SERUM 0.73 MG/DL (0.60-1.30); GFR ESTIMATED > 60; GLUCOSE 152 MG/DL (70-105); PHOSPHORUS 2.5 MG/DL (2.3-4.7); POTASSIUM 4.1 MMOL/L (3.6-5.0); SODIUM 136 MMOL/L (135-145)
[2019-03-03 03:30] LABS: BAND NEUTROPHILS 6 %; LYMPHOCYTES % (MANUAL) 3 %; MONOCYTES % (MANUAL) 4 %; NEUTROPHILS % (MANUAL) 87 %; RBC MORPH NORMAL
[2019-03-03] MEDS: MAGNESIUM 1 GM/100 ML IVPB 100 ML IV SCH (03:52)
[2019-03-03] MEDS: POTASSIUM CL 10MEQ/50ML IVPB 50 ML IV SCH (03:52)
[2019-03-03] MEDS: KCL 20 MEQ TAB (K-DUR) PO SCH (03:52)
--- NOTE | 2019-03-03 04:32 | Pulmonary Progress Note ---
Subjective Time Seen by a Provider: 04:32 Subjective/Events-last exam Pt still has persistent air leak. Sepsis Event Evaluation Height, Weight, BMI Height: '" Weight: lbs. oz. kg; 23.00 BMI Method: Exam Exam Vital Signs Date Time Temp Pulse Resp B/P (MAP) Pulse Ox O2 Delivery O2 Flow Rate FiO2 03/03/19 04:06 Nasal Cannula 4.00 03/03/19 04:00 86 18 136/68 (90) 91 Nasal Cannula 4.00 03/03/19 03:00 91 20 129/64 (85) 90 Nasal Cannula 4.00 03/03/19 02:25 95 Nasal Cannula 3.00 03/03/19 02:00 80 17 135/65 (88) 92 Nasal Cannula 4.00 03/03/19 01:00 80 19 139/65 (89) 92 Nasal Cannula 4.00 03/03/19 01:00 88 03/03/19 00:00 80 16 138/69 (92) 92 Nasal Cannula 4.00 03/02/19 23:15 Nasal Cannula 3.00 03/02/19 23:14 37.0 03/02/19 23:00 80 14 136/67 (90) 92 Nasal Cannula 4.00 03/02/19 22:00 79 16 133/67 (89) 91 Nasal Cannula 4.00 03/02/19 21:40 94 Nasal Cannula 3.00 03/02/19 21:00 81 14 132/70 (90) 90 Nasal Cannula 4.00 03/02/19 20:55 Nasal Cannula 4.00 03/02/19 20:01 37.0 03/02/19 20:01 Nasal Cannula 3.00 03/02/19 20:00 81 16 133/68 (89) 90 Nasal Cannula 3.00 03/02/19 19:00 90 20 135/80 (98) 95 Nasal Cannula 3.00 03/02/19 19:00 85 03/02/19 18:55 95 Nasal Cannula 3.00 03/02/19 18:13 37.0 03/02/19 18:00 89 22 137/74 (95) 89 Nasal Cannula 4.00 03/02/19 17:00 83 16 129/69 (89) 92 Nasal Cannula 4.00 03/02/19 16:13 93 Nasal Cannula 3.00 03/02/19 16:00 82 15 126/91 (103) 91 Nasal Cannula 4.00 03/02/19 15:00 81 16 124/64 (84) 92 Nasal Cannula 4.00 03/02/19 14:24 93 Nasal Cannula 3.00 03/02/19 14:00 85 22 134/63 (86) 92 Nasal Cannula 4.00 03/02/19 13:00 74 14 121/60 (80) 93 Nasal Cannula 4.00 03/02/19 12:16 84 03/02/19 12:14 93 Nasal Cannula 3.00 03/02/19 12:00 92 24 118/73 (88) 94 Nasal Cannula 4.00 03/02/19 12:00 36.9 03/02/19 11:00 69 12 110/51 (70) 95 Nasal Cannula 4.00 03/02/19 10:41 92 Nasal Cannula 3.00 03/02/19 10:00 82 17 128/68 (88) 94 Nasal Cannula 4.00 03/02/19 09:00 86 11 128/68 (88) 93 Nasal Cannula 4.00 03/02/19 08:15 93 Nasal Cannula 3.00 03/02/19 08:00 80 14 118/61 (80) 93 Nasal Cannula 4.00 03/02/19 07:45 37.0 03/02/19 07:00 84 18 108/57 (74) 93 Nasal Cannula 4.00 03/02/19 07:00 85 03/02/19 06:43 92 Nasal Cannula 3.00 03/02/19 06:00 86 43 107/60 (76) 93 Nasal Cannula 4.00 03/02/19 05:00 74 18 113/65 (81) 92 Nasal Cannula 4.00 I & O 03/03/19 07:00 Intake Total 4575 ml Output Total 2602 ml Balance 1973 ml Height & Weight Height: '" Weight: lbs. oz. kg; 23.00 BMI Method: General Appearance: No Apparent Distress HEENT: PERRL/EOMI Neck: Full Range of Motion, Normal Inspection Respiratory: No Accessory Muscle Use, No Respiratory Distress, Other (mild expiratory wheezing chest otherwise clear) Cardiovascular: Regular Rate, Rhythm, No Edema, No Gallop, No JVD, No Murmur, Normal Peripheral Pulses Capillary Refill: Less Than 3 Seconds Peripheral Pulses: 2+ Dorsalis Pedis (R), 2+ Left Dors-Pedis (L), 2+ Radial Pul ses (R), 2+ Radial Pulses (L) Gastrointestinal: normal bowel sounds, non tender, soft Extremity: Normal Capillary Refill, Normal Inspection, Normal Range of Motion, Non Tender, No Calf Tenderness, No Pedal Edema Neurologic/Psychiatric: Alert, Oriented x3 Skin: Normal Color, Warm/Dry Results Lab Laboratory Tests 03/01/19 07:40 03/02/19 04:08 03/03/19 02:58 Assessment/Plan Assessment/Plan Lung mass s/p CT bx -Cytology pending -Persistent Small Air Leak -Will disconnect from suction -Check CT of chest with contrast Hx CAD last stent was 6yrs ago -If repeat CT of chest looks good will restart Plavix Hypotension - probably secondary to NPO -SL IVF COPDAE -Pt will probably need home 02 -Duoneb Q 4 and Advair -Continue solumedrol 40 IV Q 6 -Oxygen -- PT does not have home 02 Strong nonproductive cough -SVNS -Solumedrol Iatrogenic right PTX s/p chest tube -CXR is pending -Continue oxygen Urinary retention secondary to BPH -S/p dash catheter -Restart Flomax GI PPX -Start Lovenox Sub Q daily. HX of CAD RAMIRO TAO DO Mar 03, 2019 04:32 POS
[2019-03-03] MEDS: methylPREDNISolone 40 MG/ML (Solu-MEDROL) VIAL IV SCH ×3 (05:41→18:17)
[2019-03-03] MEDS: ENOXAPARIN 40 MG/0.4 ML (LOVENOX) SYR SC SCH (05:42)
[2019-03-03] MEDS: RT-ADVAIR HFA 115/21 MCG PER PUFF IH SCH ×2 (06:25→18:55)
--- NOTE | 2019-03-03 07:19 | Diagnostic Imaging Report ---
INDICATION: Pneumothorax. COMPARISON: 03/02/2019 FINDINGS: Single frontal radiographic view of the chest was obtained and demonstrates indwelling small bore chest tube within the lateral right apex. There is persistent moderate soft tissue emphysema, which does partially obscure the right lung. There is trace pneumothorax within the lateral right lung base. Note is also again made of masslike opacity within the right lung base. Left lung is relatively clear. There is no pneumothorax on the left. No large effusion is seen on either side. Cardiac silhouette and pulmonary vasculature are within normal limits. Sternotomy wires and calcified aortic atherosclerosis are noted. IMPRESSION: 1. Small bore right-sided chest tube with trace right basilar pneumothorax. 2. Redemonstration of soft tissue mass within the right lung base. Dictated by: Dictated on workstation # [id number]
[2019-03-03] MEDS ORDERED: NS 100 ML (IVPB) BAG IV ONE (08:30)
[2019-03-03] MEDS ORDERED: IOHEXOL 350 MG/ML 100 ML (OMNIPAQUE 350) VIAL IV ONE (08:30)
--- NOTE | 2019-03-03 09:02 | Diagnostic Imaging Report ---
PROCEDURE: CT chest with contrast only. TECHNIQUE: Multiple contiguous axial images were obtained through the chest after administration of intravenous contrast. Auto Exposure Controls were utilized during the CT exam to meet ALARA standards for radiation dose reduction. INDICATION: Pneumothorax, cough, weakness, shortness of breath COMPARISON: Radiograph from the same day FINDINGS: The heart is normal in size. There is no pericardial effusion. There is calcific atherosclerosis. Calcified lymph nodes are seen from old granulomatous disease. There is a small right pneumothorax seen at the right lung base. A pleural catheter is in place anteriorly. There is moderate emphysematous change in the lungs. The right lung mass measuring up to 4 cm in diameter and located at the right middle lobe appears unchanged. There are patchy airspace opacities in the right lower lobe which appear new. Mild airspace opacities are seen in the left lower lobe as well. There is soft tissue air throughout the right chest wall. No acute osseous abnormality is seen. Imaged portions of the upper abdomen demonstrate no acute abnormality. IMPRESSION: 1. Small right pneumothorax with pleural catheter in place. There is moderate soft tissue air along the right chest wall. 2. Stable lung mass in the right lung base. 3. Airspace opacities in the lower lobes bilaterally, right worse than left. These are nonspecific but appear new compared to 03/01/2019 and could represent atelectasis, infection, or aspiration. 4. Moderate emphysematous changes. Dictated by: Dictated on workstation # [id number]
--- NOTE | 2019-03-03 12:33 | Progress Note - Hospitalist ---
Subjective HPI/CC On Admission Date Seen by Provider: Mar 03, 2019 Time Seen by Provider: 07:30 on the patient underwent fine-needle biopsy of a PET scan positive right sided lung mass. Procedure was complicated by pneumothorax requiring chest tube placement and overnight monitoring. Patient reports pain at chest tube site. Subjective/Events-last exam Patient reports decreased chest tube site discomfort and decreased pleuritic pain asking about discharge. Objective Exam Vital Signs Vital Signs Date Time Temp Pulse Resp B/P (MAP) Pulse Ox O2 Delivery O2 Flow Rate FiO2 03/03/19 12:00 Nasal Cannula 5.00 03/03/19 11:00 106 24 141/72 (95) 91 03/03/19 04:00 36.8 Capillary Refill : Less Than 3 Seconds General Appearance: No Apparent Distress Respiratory: Chest Non Tender, Lungs Clear, Normal Breath Sounds, No Accessory Muscle Use, No Respiratory Distress Cardiovascular: Regular Rate, Rhythm, No Edema, No Gallop, No JVD, No Murmur, Normal Peripheral Pulses Results/Procedures Lab Laboratory Tests 03/03/19 02:58 Patient resulted labs reviewed. Assessment/Plan Assessment and Plan Assess & Plan/Chief Complaint A/P 1. Pneumothorax post fine-needle aspirate of a right middle lobe lung mass suspicious for underlying carcinoma in a high-risk individual with heavy smoking history. Patient is a longer hooked to suction with repeat CT revealing a small right basilar pneumothorax being managed per Dr. Baumann continue follow-up chest x-rays per Dr. Baumann. 2. COPD secondary to tobaccoism suspect patient will qualify for home oxygen. Clinical Quality Measures DVT/VTE Risk/Contraindication: Risk Factor Score Per Nursin RFS Level Per Nursing on Admit: 4+=Very High HANNAH WHITAKER MD Mar 03, 2019 12:33 POS
--- NOTE | 2019-03-03 13:03 | Diagnostic Imaging Report ---
INDICATION: Pneumothorax. TIME OF EXAM: 12:51 p.m. COMPARISON: Correlation is made with chest radiograph from earlier same day. FINDINGS: Small-caliber chest tube overlies the right upper chest. No residual pneumothorax is seen. Right lung base mass is again noted. There is some subcutaneous emphysema along the right chest wall and lower right neck. Left lung is clear. Infiltrate in the right base appears to be improved. There are changes of median sternotomy. IMPRESSION: 1. No residual pneumothorax is identified. 2. Improving right basilar infiltrate. Right lung mass is again noted. Dictated by: Dictated on workstation # [id number]
[2019-03-03] MEDS: LORazepam INJ 2 MG/ML (ATIVAN) VIAL IVP PRN (13:51)
[2019-03-03] MEDS: BENZONATATE 100 MG (TESSALON) CAPSULE PO PRN (14:30)
[2019-03-03] MEDS: TAMSULOSIN 0.4 MG (FLOMAX) CAP PO SCH (18:17)
[2019-03-04] VITALS (23 sets, daily range): BP systolic 93–158; BP diastolic 46–101
[2019-03-04] MEDS: methylPREDNISolone 40 MG/ML (Solu-MEDROL) VIAL IV SCH ×5 (01:21→23:46)
[2019-03-04] MEDS: SIMvastatin 10 MG (ZOCOR) TAB PO SCH ×2 (01:23→23:47)
[2019-03-04] MEDS: RT-ALBUTEROL/IPRATROPIUM 3 ML (DUONEB) VIAL INH SCH ×5 (02:50→18:11)
--- NOTE | 2019-03-04 03:25 | Pulmonary Progress Note ---
Subjective Date Seen by a Provider: Mar 04, 2019 Time Seen by a Provider: 03:21 Sepsis Event Evaluation Height, Weight, BMI Height: '" Weight: lbs. oz. kg; 23.00 BMI Method: Exam Exam Vital Signs Date Time Temp Pulse Resp B/P (MAP) Pulse Ox O2 Delivery O2 Flow Rate FiO2 03/04/19 00:00 36.6 03/04/19 00:00 Nasal Cannula 5.00 03/03/19 22:19 95 Nasal Cannula 5.00 03/03/19 21:00 90 23 138/71 (93) 93 Nasal Cannula 4.00 03/03/19 20:00 36.5 03/03/19 20:00 Nasal Cannula 5.00 03/03/19 20:00 90 23 136/71 (92) 93 Nasal Cannula 4.00 03/03/19 19:00 93 17 125/67 (86) 93 Nasal Cannula 4.00 03/03/19 18:56 94 Nasal Cannula 5.00 03/03/19 18:45 99 03/03/19 18:00 104 26 133/63 (86) 93 Nasal Cannula 4.00 03/03/19 17:00 105 23 126/67 (86) 95 Nasal Cannula 4.00 03/03/19 16:00 113 18 145/69 (94) 94 Nasal Cannula 4.00 03/03/19 16:00 Nasal Cannula 5.00 03/03/19 15:00 108 21 129/64 (85) 91 Nasal Cannula 4.00 03/03/19 14:18 94 Nasal Cannula 4.00 03/03/19 14:00 109 20 105/73 (84) 93 Nasal Cannula 4.00 03/03/19 13:00 103 03/03/19 13:00 103 17 125/55 (78) 91 Nasal Cannula 4.00 03/03/19 12:00 Nasal Cannula 5.00 03/03/19 12:00 106 19 138/77 (97) 92 Nasal Cannula 4.00 03/03/19 11:00 106 24 141/72 (95) 91 Nasal Cannula 4.00 03/03/19 10:00 97 18 133/67 (89) 92 Nasal Cannula 4.00 03/03/19 09:00 105 20 124/65 (84) 92 Nasal Cannula 4.00 03/03/19 08:00 Nasal Cannula 5.00 03/03/19 08:00 104 20 121/62 (81) 90 Nasal Cannula 4.00 03/03/19 07:00 98 17 130/68 (88) 90 Nasal Cannula 4.00 03/03/19 07:00 87 03/03/19 06:26 93 Nasal Cannula 4.00 03/03/19 06:00 80 18 130/64 (86) 92 Nasal Cannula 4.00 03/03/19 05:00 85 19 126/67 (86) 92 Nasal Cannula 4.00 03/03/19 04:06 Nasal Cannula 4.00 03/03/19 04:00 86 18 136/68 (90) 91 Nasal Cannula 4.00 03/03/19 04:00 36.8 I & O 03/04/19 07:00 Intake Total 2820 ml Output Total 1250 ml Balance 1570 ml Height & Weight Height: '" Weight: lbs. oz. kg; 23.00 BMI Method: General Appearance: No Apparent Distress HEENT: PERRL/EOMI Neck: Full Range of Motion, Normal Inspection Respiratory: Lungs Clear, Normal Breath Sounds, No Accessory Muscle Use, No Respiratory Distress, Other (subcutaneous emphysema right anterior chest wall, improving) Cardiovascular: Regular Rate, Rhythm, No Edema, No Gallop, No JVD, No Murmur, Normal Peripheral Pulses Capillary Refill: Less Than 3 Seconds Peripheral Pulses: 2+ Dorsalis Pedis (R), 2+ Left Dors-Pedis (L), 2+ Radial Pulses (R), 2+ Radial Pulses (L) Gastrointestinal: normal bowel sounds, non tender, soft Extremity: No Pedal Edema Neurologic/Psychiatric: Alert, Oriented x3 Skin: Normal Color, Warm/Dry Results Lab Laboratory Tests 03/02/19 04:08 03/03/19 02:58 Assessment/Plan Assessment/Plan Lung mass s/p CT bx -Cytology pending -Persistent Small Air Leak -disconnected from suction -CT chest 03/03 -Small PTX with catheter in place, airspace opacities in lower lobes R>L Hx CAD last stent was 6yrs ago -If repeat CT of chest looks good will restart Plavix Hypotension - probably secondary to NPO -SL IVF COPDAE -Pt will probably need home 02 -Duoneb Q 4 and Advair -Continue solumedrol 40 IV Q 6 -Oxygen -- PT does not have home 02 Strong nonproductive cough -SVNS -Solumedrol Iatrogenic right PTX s/p chest tube -CXR 03/03 - no identifiable PTX, improving infiltrate -CT chest 03/03 -Small PTX with catheter in place, airspace opacities in lower lobes R>L -Continue oxygen Urinary retention secondary to BPH -S/p dash catheter -Flomax DVT Prophylaxis -Lovenox Sub Q daily. HX of CAD In: 4470 Out: 1999 Net [id number] SHANNAN TONEY MEDICAL STUDENT Mar 04, 2019 03:25 POS
[2019-03-04 03:49] LABS: BASOPHILS % (AUTO) 0 % (0-10); BUN/CREATININE RATIO 27; CALCIUM 9.3 MG/DL (8.5-10.1); CARBON DIOXIDE 24 MMOL/L (21-32); CHLORIDE 104 MMOL/L (98-107); CREATININE SERUM 0.71 MG/DL (0.60-1.30); EOSINOPHILS % (AUTO) 0 % (0-10); GFR ESTIMATED > 60; GLUCOSE 124 MG/DL (70-105); HEMATOCRIT 41 % (40-54); HEMOGLOBIN 13.6 G/DL (13.3-17.7); LYMPHOCYTES # (AUTO) 0.6 X 10^3 (1.0-4.0); LYMPHOCYTES % (AUTO) 5 % (12-44); MAGNESIUM 2.3 MG/DL (1.6-2.4); MEAN CORPUSCULAR HEMOGLOBIN 29 PG (25-34); MEAN CORPUSCULAR HGB CONC 33 G/DL (32-36); MEAN CORPUSCULAR VOLUME 88 FL (80-99); MONOCYTES # (AUTO) 0.6 X 10^3 (0.0-1.0); MONOCYTES % (AUTO) 5 % (0-12); NEUTROPHILS # (AUTO) 11.3 X 10^3 (1.8-7.8); NEUTROPHILS % (AUTO) 90 % (42-75); PHOSPHORUS 3.2 MG/DL (2.3-4.7); PLATELET COUNT 203 10^3/uL (130-400); POTASSIUM 4.3 MMOL/L (3.6-5.0); RED CELL DISTRIBUTION WIDTH 15.2 % (10.0-14.5); SODIUM 138 MMOL/L (135-145); WHITE BLOOD COUNT 12.5 10^3/uL (4.3-11.0)
[2019-03-04] MEDS: MAGNESIUM 1 GM/100 ML IVPB 100 ML IV SCH (03:56)
[2019-03-04] MEDS: POTASSIUM CL 10MEQ/50ML IVPB 50 ML IV SCH (03:56)
[2019-03-04] MEDS: KCL 20 MEQ TAB (K-DUR) PO SCH (03:56)
[2019-03-04] MEDS: ENOXAPARIN 40 MG/0.4 ML (LOVENOX) SYR SC SCH (06:30)
[2019-03-04] MEDS: RT-ADVAIR HFA 115/21 MCG PER PUFF IH SCH ×2 (06:56→18:11)
--- NOTE | 2019-03-04 07:06 | Diagnostic Imaging Report ---
EXAMINATION: Chest 1 view HISTORY: Pneumothorax FINDINGS: Comparison is 03/03/2019. Right sided chest tube is present. No pneumothorax is seen. Right chest wall gas is stable. Median sternotomy wires are aligned. Right lung base mass is unchanged. Heart size is normal. No edema or pneumonia. IMPRESSION: 1. No pneumothorax seen. Dictated by: Dictated on workstation # [id number]
--- NOTE | 2019-03-04 08:30 | NUR ---
SPO2 87% ON ROOM AIR @ REST. PT PLACED ON O2 @ 4 LPM, SPO2 INCREASED TO 91%. WALKED PT FOR 4 MINUTES. SPO2 DROPPED TO 88% ON 4 LPM, INCREASE O2 TO 6 LPM. SPO2 STAYED ABOVE 96% WITH EXERTION. Addendum: 03/04/19 at 0932 by HANDY ARBOLEDA RT PT STUMBLED SEVERAL TIMES DURING WALK AND ALMOST FELL. PT STATED THAT THIS IS HOW HE USUALLY WALKS. PT DID NOT COMPLAIN OF SOA BUT HE WAS BREATHING HARD. Addendum: 03/04/19 at 0933 by HANDY ARBOLEDA RT Amended: Links added.
[2019-03-04] MEDS: CEFDINIR 300 MG (OMNICEF) CAP PO SCH ×2 (08:56→19:41)
[2019-03-04] MEDS ORDERED: CEFD300C3 PO (09:50)
[2019-03-04] MEDS ORDERED: PRED10TA22 PO (09:50)
--- NOTE | 2019-03-04 11:17 | Diagnostic Imaging Report ---
INDICATION: Right pneumothorax, follow-up. TIME OF EXAM: 10:59 a.m. Correlation is made with prior study earlier the same morning. FINDINGS: Changes of median sternotomy and CABG are noted. Thora-Vent small-caliber chest tube overlies the right upper chest. Right basilar lung mass is again seen. Very small residual right basilar pneumothorax is seen measuring a thickness of approximately 1 cm at the right base. No apical component is seen. Trachea is midline. Left lung is clear. No pleural fluid is seen. Subcutaneous emphysema along the right chest wall and right lower neck persists but may be slightly decreased. IMPRESSION: Very small right basilar residual pneumothorax. Dictated by: Dictated on workstation # [id number]
--- NOTE | 2019-03-04 11:39 | Discharge Summary ---
[facility] SANC[facility] 03/04/19 1139: Diagnosis/Chief Complaint Date of Admission Mar 01, 2019 at 13:03 Date of Discharge Discharge Date: Mar 04, 2019 Admission Diagnosis 1. Pneumothorax post fine needle biopsy of her right sided PET scan positive lung mass in a smoker high risk for malignancy. With chest tube placement pneumothorax resolved management per Dr. Baumann. 2. Underlying tobacco-related COPD. Primary Care Kevin Vaca Discharge Summary Discharge Physical Exam Allergies: Coded Allergies: No Known Drug Allergies (Unverified , 02/06/19) Vitals & I&Os Vital Signs Date Time Temp Pulse Resp B/P (MAP) Pulse Ox O2 Delivery O2 Flow Rate FiO2 03/04/19 10:24 97 Nasal Cannula 4.00 03/04/19 08:00 37.2 03/04/19 08:00 109 25 112/58 (76) General Appearance: Chronically ill, Mild Distress Respiratory: Chest Non Tender, Lungs Clear, Normal Breath Sounds, Other (Difficulty breathing, does not wear nasal cannula consistently) Cardiovascular: Regular Rate, Rhythm, No Murmur, Normal Peripheral Pulses Skin: Normal Color, Warm/Dry Neurologic/Psychiatric: Alert, Oriented x3, No Motor/Sensory Deficits, Normal Mood/Affect Hospital Course Pt came in for fine-needle biopsy of a PET scan positive right sided lung mass. The procedure resulted in a small pneumothorax that was manage conservatively at first, but the hole did not close up and the pneumothorax enlarged requiring the insertion of a chest tube. The pt responded well to the chest tube decreasing the pneumothorax. Pt still has trouble breathing, but states that he is at his baseline and would like to go home today. He states his O2 does get low when he is not on the Nasal Cannula, but if he relaxes it improves. He denies using oxygen at home prior to this visit, but states he would be okay with it as long as it is not too big of an oxygen tank. He will return on the for a follow up on the results of the biopsy with Dr Baumann. Labs (last 24 hrs) Laboratory Tests 03/04/19 03:10: White Blood Count 12.5H, Red Blood Count 4.64, Hemoglobin 13.6, Hematocrit 41, Mean Corpuscular Volume 88, Mean Corpuscular Hemoglobin 29, Mean Corpuscular Hemoglobin Concent 33, Red Cell Distribution Width 15.2H, Platelet Count 203, Mean Platelet Volume 10.0, Neutrophils (%) (Auto) 90H, Lymphocytes (%) (Auto) 5L , Monocytes (%) (Auto) 5, Eosinophils (%) (Auto) 0, Basophils (%) (Auto) 0, Neutrophils # (Auto) 11.3H, Lymphocytes # (Auto) 0.6L, Monocytes # (Auto) 0.6, Eosinophils # (Auto) 0.0, Basophils # (Auto) 0.0, Sodium Level 138, Potassium Level 4.3, Chloride Level 104, Carbon Dioxide Level 24, Anion Gap 10, Blood Urea Nitrogen 19H, Creatinine 0.71, Estimat Glomerular Filtration Rate > 60, BUN/Creatinine Ratio 27, Glucose Level 124H, Calcium Level 9.3, Phosphorus Level 3.2, Magnesium Level 2.3 Microbiology 03/01/19 MRSA Screen - Final, Complete MRSA not isolated Patient resulted labs reviewed. Discharge Home Medications: Active Scripts Active Prednisone 10 Mg Tab.ds.pk 10 Mg PO DAILY Take 6 tabs(60mg)daily,decrease by 1 tab(10MG)daily. Cefdinir 300 Mg Capsule 300 Mg PO BID Reported Flomax (Tamsulosin HCl) 0.4 Mg Cap 0.4 Mg PO 1730 Proair Hfa (Albuterol Sulfate) 1 Puff Puff 2 Puff INH Q4H PRN Albuterol Sulfate 2.5 Mg/3 Ml Vial.neb 2.5 Mg NEB Q4H PRN Trelegy Ellipta 100-62.5-25 (Fluticasone/Umeclidin/Vilanter) 1 Each Blst.w.dev 1 Puff INH 0700 Pravastatin Sodium 20 Mg Tablet 20 Mg PO 0100 Clopidogrel (Clopidogrel Bisulfate) 75 Mg Tablet 75 Mg PO 0700 Instructions to patient/family Please see electronic discharge instructions given to patient. Clinical Quality Measures DVT/VTE Risk/Contraindication: Risk Factor Score Per Nursin RFS Level Per Nursing on Admit: 4+=Very High BELEN CABRERA DO 03/04/19 7080: Diagnosis/Chief Complaint Discharge Diagnosis (1) Pneumothorax after biopsy (2) COPD (chronic obstructive pulmonary disease) (3) Cough (4) RESPIRATORY FAILURE, UNSP, UNSP W HYPOXIA OR HYPERCAPNIA Discharge Summary Discharge Physical Exam Allergies: Coded Allergies: No Known Drug Allergies (Unverified , 02/06/19) General Appearance: WD/WN, Chronically ill, Mild Distress Respiratory: Decreased Breath Sounds, Other (Difficulty breathing, does not wear nasal cannula consistently) Cardiovascular: Regular Rate, Rhythm Neurologic/Psychiatric: Alert, Oriented x3 Hospital Course Was the Problem List Reviewed?: Yes Hospital Course: Pt has an uneventful hospitalcourse, he was admitted after a pneumothorax following a lung biopsy for suspicious lesion. He was placed on IV steroids for exacerbation for COPD along with bronchitis antibiotictreatment and chest tube was placed and pt was deemed stable for DC although SOB and off balance walking of which he reports he always walks like that so 6 liters of O2 was approved and those orders were placed and will DC the catheter, have close follow up with Dr. Baumann on after lung biopsy results. Discussion & Recommendations Discharge Planning: <30 minutes discharge planning Supervisory-Addendum Brief Verification & Attestation Participated in pt care: history, MDM, physical Personally performed: exam, history, MDM, supervision of care Care discussed with: Medical Student Procedures: n/a Results interpretation: Verified all documentation Verification and Attestation of Medical Student E/M Service A medical student performed and documented this service in my presence. I reviewed and verified all information documented by the medical student and made modifications to such information, when appropriate. I personally performed the physical exam and medical decision making. Belen Cabrera, Mar 04, 2019,18:51 [facility] Mar 04, 2019 11:39 BELEN FERRO DO Mar 04, 2019 18:50 POS
[2019-03-04] MEDS: LORazepam INJ 2 MG/ML (ATIVAN) VIAL IVP PRN (13:31)
[2019-03-04] MEDS ORDERED: LIDOCAINE 1% INJ 20 ML 20 ML VIAL INJ ONE (14:45)
[2019-03-04] MEDS ORDERED: fentaNYL INJECTION 100 MCG/2 ML AMP IVP ONE (14:45)
[2019-03-04] MEDS ORDERED: MIDAZOLAM 2 MG/2 ML (VERSED) VIAL IVP ONE (14:45)
[2019-03-04] MEDS: morphine INJ 4 MG/ML 1 ML (VIAL/SYRINGE) IVP PRN (15:00)
--- NOTE | 2019-03-04 15:05 | NUR ---
PT TO RADIOLOGY WITH RADIOLOGY STAFF FOR GUIDED CHEST TUBE PLACEMENT.
--- NOTE | 2019-03-04 15:18 | Diagnostic Imaging Report ---
INDICATION: Pneumothorax, follow-up. Patient's Thora-Vent chest tube has been capped for several hours. TIME OF EXAM: 02:03 p.m. COMPARISON: Correlation is made with prior chest from earlier the same day performed at 11:00 a.m. FINDINGS: Right basilar pneumothorax has increased in size now measuring to thickness of approximately 3 cm at the right base compared to 1 cm. Left lung remains well-aerated. Thora-Vent overlies the right chest. Right lung mass in the right base is again noted. Subcutaneous emphysema along the right chest wall is again noted. IMPRESSION: There has been some increase in size of right basilar pneumothorax since examination earlier same day, status post chest tube capping. Patient will undergo CT-guided small caliber chest tube placement in the right lung base. Dictated by: Dictated on workstation # [id number]
[2019-03-04] MEDS ORDERED: HYDROcodone/APAP 5 MG/325 MG (LORTAB) TAB PO PRN (16:00)
--- NOTE | 2019-03-04 16:08 | Pre-Op Note & Conscious Sedat ---
Pre-Operative Progress Note H&P Reviewed The H&P was reviewed, patient examined and no changes noted. Date H&P Reviewed: Mar 04, 2019 Time H&P Reviewed: 13:00 Pre-Op Diagnosis: pneumothorax Conscious Sedation Pre-Proced Time 09:00 ASA Score 2 For ASA 3 and 4: Consider anesthesia and medical clearance. Also, for patients with a history of failed moderate sedation consider anesthesia. Airway Lungs Heart ASA score ASA 1: a normal healthy patient ASA 2: a patient with a mild systemic disease (mid diabetes, controlled hypertension, obesity ASA 3: a patient with a severe systemic disease that limits activity (angina, COPD, prior Myocardial infarction) ASA 4: a patient with an incapacitating disease that is a constant threat to life (CHF, renal failure) ASA 5: a moribund patient not expected to survive 24 hrs. (ruptured aneurysm) ASA 6: a declared brain- patient whose organs are being harvested. For emergent operations, add the letter E after the classification Mallampati Classification Grade 2 Sedation Plan Analgesia, Amnesia, Plan communicated to team members, Discussed options with patient/fam, Discussed risks with patient/fam The patient is an appropriate candidate to undergo the planned procedure, sedation, and anesthesia. The patient immediately re-assessed prior to indication. DENIA SEGURA MD Mar 04, 2019 16:08 POS
--- NOTE | 2019-03-04 16:11 | Diagnostic Imaging Report ---
INDICATION: Right-sided pneumothorax. Patient presents for CT-guided chest tube placement. DETAILS OF THE PROCEDURE: Patient was brought to the CT suite and placed on the table in supine position. Axial imaging through the chest was performed to evaluate appropriate entry site. Right chest was prepped and draped in usual sterile fashion. Study was performed utilizing conscious sedation with radiology nursing and constant patient monitoring. Patient was administered 1 mg of Versed intravenously. Total procedure time was approximately 6 minutes. An 8.5 Vincentian all-purpose pigtail catheter was advanced and placed in the pleural space on the right in the right base. A loop was formed. 60 mL syringe was utilized to evacuate the accumulation of pleural air. Two-way stopcock was placed on tube. Patient will be placed to suction when he arises back at the floor. Catheter was affixed to the patient's skin. Follow-up imaging demonstrates good position of the pigtail chest tube in the anterior and right basilar pleural space. There is only a small amount of residual pneumothorax remaining. There is moderate amount of subcutaneous gas along the right chest wall. IMPRESSION: CT-guided right chest tube placement utilizing conscious sedation, as described. Dictated by: Dictated on workstation # [id number]
[2019-03-04] MEDS: TAMSULOSIN 0.4 MG (FLOMAX) CAP PO SCH (17:43)
[2019-03-05] VITALS (12 sets, daily range): BP systolic 117–168; BP diastolic 68–90
--- NOTE | 2019-03-05 03:22 | Pulmonary Progress Note ---
SHANNAN TONEY A MEDICAL STUDENT 03/05/19 0322: Subjective Date Seen by a Provider: Mar 05, 2019 Time Seen by a Provider: 03:21 Subjective/Events-last exam Pt had unresolving right sided PTX yesterday and CT guided chest tube placed yesterday by IR. Tubes are both currently hooked up to suction. Pt has no compla ints at this time. Pt required 3L O2 while asleep to maintain sats. Sepsis Event Evaluation Height, Weight, BMI Height: '" Weight: lbs. oz. kg; 23.00 BMI Method: Exam Exam Vital Signs Date Time Temp Pulse Resp B/P (MAP) Pulse Ox O2 Delivery O2 Flow Rate FiO2 03/05/19 03:00 81 22 150/77 (101) 93 Nasal Cannula 2.00 03/05/19 02:00 88 21 148/75 (99) 93 Nasal Cannula 2.00 03/05/19 01:00 83 17 136/68 (90) 90 Nasal Cannula 2.00 03/05/19 01:00 83 03/05/19 00:01 36.5 03/05/19 00:00 93 17 168/76 (106) 91 Nasal Cannula 2.00 03/04/19 23:51 93 Nasal Cannula 2.00 03/04/19 23:00 90 17 144/80 (101) 93 Nasal Cannula 2.00 03/04/19 22:00 89 139/77 (97) 91 Nasal Cannula 2.00 03/04/19 21:00 115 150/81 (104) 89 Nasal Cannula 2.00 03/04/19 20:00 36.0 03/04/19 20:00 90 18 128/72 (90) 92 Nasal Cannula 2.00 03/04/19 19:45 93 Nasal Cannula 2.00 03/04/19 19:00 101 03/04/19 19:00 101 23 132/74 (93) 93 Nasal Cannula 2.00 03/04/19 18:45 80 9 148/90 (109) 97 Nasal Cannula 2.00 03/04/19 18:34 Nasal Cannula 2.00 03/04/19 18:10 95 Nasal Cannula 3.00 03/04/19 18:00 112 29 126/86 (99) 90 Nasal Cannula 4.00 03/04/19 17:00 113 152/101 (118) Nasal Cannula 4.00 03/04/19 16:00 92 Nasal Cannula 4.00 03/04/19 16:00 36.9 03/04/19 16:00 133 20 93/46 (62) 90 Nasal Cannula 4.00 03/04/19 15:35 106 24 109/56 94 Nasal Cannula 5.00 03/04/19 15:30 105 20 111/62 93 Nasal Cannula 5.00 03/04/19 15:25 110 20 108/66 90 Nasal Cannula 5.00 03/04/19 15:20 111 23 112/64 93 Nasal Cannula 5.00 03/04/19 13:53 93 Nasal Cannula 5.00 03/04/19 12:00 Nasal Cannula 4.00 03/04/19 12:00 105 24 131/74 (93) 91 Nasal Cannula 4.00 03/04/19 12:00 37.2 03/04/19 10:24 97 Nasal Cannula 4.00 03/04/19 08:50 Nasal Cannula 4.00 03/04/19 08:30 93 5.00 03/04/19 08:20 Room Air 03/04/19 08:00 37.2 03/04/19 08:00 109 25 112/58 (76) 92 Nasal Cannula 4.00 03/04/19 08:00 Nasal Cannula 4.00 03/04/19 07:00 93 03/04/19 07:00 90 21 130/67 (88) 96 Nasal Cannula 4.00 03/04/19 06:53 95 Nasal Cannula 5.00 03/04/19 06:00 98 28 129/71 (90) 95 Nasal Cannula 4.00 03/04/19 05:00 80 18 158/92 (114) 95 Nasal Cannula 4.00 03/04/19 04:00 88 21 150/85 (106) 96 Nasal Cannula 4.00 03/04/19 03:57 Nasal Cannula 5.00 03/04/19 03:57 36.7 I & O 03/05/19 07:00 Intake Total 1240 ml Output Total 2215 ml Balance -975 ml Height & Weight Height: '" Weight: lbs. oz. kg; 23.00 BMI Method: General Appearance: WD/WN, Chronically ill, Mild Distress HEENT: PERRL/EOMI Neck: Full Range of Motion, Normal Inspection Respiratory: Decreased Breath Sounds, Other (Difficulty breathing, does not wear nasal cannula consistently) Cardiovascular: Regular Rate, Rhythm Capillary Refill: Less Than 3 Seconds Peripheral Pulses: 2+ Dorsalis Pedis (R), 2+ Left Dors-Pedis (L), 2+ Radial P ulses (R), 2+ Radial Pulses (L) Gastrointestinal: normal bowel sounds, non tender, soft Extremity: No Pedal Edema Neurologic/Psychiatric: Alert, Oriented x3 Skin: Normal Color, Warm/Dry Results Lab Laboratory Tests 03/04/19 03:10 RAMIRO BAUMANN DO 03/05/19 0536: Subjective Time Seen by a Provider: 05:31 Subjective/Events-last exam S/p second chest tube. Exam Exam General Appearance: WD/WN, Chronically ill, Mild Distress HEENT: PERRL/EOMI Neck: Full Range of Motion, Normal Inspection Respiratory: Lungs Clear, Normal Breath Sounds, No Accessory Muscle Use, No Respiratory Distress, Decreased Breath Sounds Capillary Refill: Less Than 3 Seconds Gastrointestinal: normal bowel sounds, non tender, soft Neurologic/Psychiatric: Alert, Oriented x3 Skin: Normal Color, Warm/Dry Assessment/Plan Assessment/Plan Lung mass s/p CT bx -S/P second chest tube -Cytology pending -Persistent Small Air Leak -Send pleural fluid down for cytology and cultures. Iatrogenic right right PTX with continuous air leak -S/P 2 chest tubes upper and lower -Will continue to monitor now and continue suction. 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 -Continue solumedrol -Last PFT was 02/02 showed severe COPD/emphysema with DLCO 39 -Culture sputum -Change Abx to Zosyn Hx CAD last stent was 6yrs ago -If repeat CT of chest looks good will restart Plavix COPDAE -Pt will probably need home 02 -Duoneb Q 4 and Advair -Continue solumedrol 40 IV Q 6 -Oxygen -- PT does not have home 02 Strong nonproductive cough -SVNS -Solumedrol Iatrogenic right PTX s/p chest tube -CXR 03/03 - no identifiable PTX, improving infiltrate -CT chest 03/03 -Small PTX with catheter in place, airspace opacities in lower lobes R>L -Continue oxygen Urinary retention secondary to BPH -S/p dash catheter -Flomax DVT Prophylaxis -Lovenox Sub Q daily. HX of CAD Supervisory-Addendum Brief Verification & Attestation Participated in pt care: history Personally performed: exam, history Care discussed with: Medical Student Procedures: n/a Verification and Attestation of Medical Student E/M Service A medical student performed and documented this service in my presence. I r eviewed and verified all information documented by the medical student and made modifications to such information, when appropriate. I personally performed the physical exam and medical decision making. Ramiro Baumann, Mar 07, 2019,05:14 SHANNAN TONEY MEDICAL STUDENT Mar 05, 2019 03:22 RAMIRO TABOR DO Mar 05, 2019 05:36 POS
[2019-03-05 03:58] LABS: BASOPHILS % (AUTO) 0 % (0-10); EOSINOPHILS % (AUTO) 0 % (0-10); HEMATOCRIT 40 % (40-54); HEMOGLOBIN 13.4 G/DL (13.3-17.7); LYMPHOCYTES # (AUTO) 0.5 X 10^3 (1.0-4.0); LYMPHOCYTES % (AUTO) 5 % (12-44); MEAN CORPUSCULAR HEMOGLOBIN 30 PG (25-34); MEAN CORPUSCULAR HGB CONC 34 G/DL (32-36); MEAN CORPUSCULAR VOLUME 89 FL (80-99); MONOCYTES # (AUTO) 0.6 X 10^3 (0.0-1.0); MONOCYTES % (AUTO) 6 % (0-12); NEUTROPHILS # (AUTO) 9.4 X 10^3 (1.8-7.8); NEUTROPHILS % (AUTO) 90 % (42-75); PLATELET COUNT 197 10^3/uL (130-400); WHITE BLOOD COUNT 10.4 10^3/uL (4.3-11.0)
[2019-03-05 04:35] LABS: BUN/CREATININE RATIO 29; CALCIUM 9.2 MG/DL (8.5-10.1); CARBON DIOXIDE 24 MMOL/L (21-32); CHLORIDE 105 MMOL/L (98-107); CREATININE SERUM 0.66 MG/DL (0.60-1.30); GFR ESTIMATED > 60; GLUCOSE 114 MG/DL (70-105); MAGNESIUM 2.3 MG/DL (1.6-2.4); PHOSPHORUS 2.8 MG/DL (2.3-4.7); SODIUM 140 MMOL/L (135-145)
[2019-03-05] MEDS: KCL 20 MEQ TAB (K-DUR) PO SCH (04:45)
[2019-03-05] MEDS: POTASSIUM CL 10MEQ/50ML IVPB 50 ML IV SCH (04:45)
[2019-03-05] MEDS: MAGNESIUM 1 GM/100 ML IVPB 100 ML IV SCH (04:45)
[2019-03-05] MEDS ORDERED: PIPERACILLIN/TAZOBACTAM (BULK) 4.5 GM in NS (IVPB) 100 ML IV SCH (05:45)
[2019-03-05] MEDS: methylPREDNISolone 40 MG/ML (Solu-MEDROL) VIAL IV SCH ×3 (05:48→17:18)
[2019-03-05] MEDS: ENOXAPARIN 40 MG/0.4 ML (LOVENOX) SYR SC SCH (05:48)
[2019-03-05] MEDS ORDERED: PIPERACILLIN/TAZO 4.5 GM/NS 100 ML IV NR ×2 (06:30)
[2019-03-05] MEDS ORDERED: PIPERACILLIN/TAZO 4.5 GM VIAL (ZOSYN) IV ONE (06:37)
[2019-03-05] MEDS ORDERED: NS (IVPB) 100 ML ONE (06:38)
[2019-03-05] MEDS: RT-ALBUTEROL/IPRATROPIUM 3 ML (DUONEB) VIAL INH SCH ×4 (07:23→19:23)
--- NOTE | 2019-03-05 08:19 | Diagnostic Imaging Report ---
INDICATION: Pneumothorax. Exam compared with study one day prior. Right chest catheter has been placed. Extensive subcutaneous emphysema is redemonstrated. Overlying soft tissue gas limits detectability of pleural air, no convincing pleural separation or pneumothorax is identified. Sternal wires midline. There is background changes of COPD and an ovoid mass in the right lower lung unchanged. IMPRESSION: Redemonstration of extensive subcutaneous emphysema. No appreciable pneumothorax following catheter placement although sensitivity admittedly limited by the soft tissue gas overlying. Known right lung mass, COPD and prior CABG redemonstrated. Dictated by: Dictated on workstation # [id number]
--- NOTE | 2019-03-05 09:12 | NUR ---
DISCHARGE PLANNING: This RN attempted to speak with patient yesterday regarding discharge needs which at that time was to be a order for new home oxygen at 6L. However, on arrival to room, Dr. garcia was talking to him about his need for a 2nd chest tube to be placed. This was done yesterday afternoon. Will continue to follow and offer support in discharge planning as needed.
--- NOTE | 2019-03-05 10:46 | Progress Note - Hospitalist ---
[facility] SANCHEZ [facility] 03/05/19 1046: Subjective HPI/CC On Admission Date Seen by Provider: Mar 05, 2019 Time Seen by Provider: 07:41 on the patient underwent fine-needle biopsy of a PET scan positive right sided lung mass. Procedure was complicated by pneumothorax requiring chest tube placement and overnight monitoring. Patient reports pain at chest tube site. Subjective/Events-last exam Pt reports coughing up a bunch of big yellow chunks He states he was told that his lungs have been able to expand again after the placement of the second chest tube He denies any trouble breathing currently He reports being very bored and tired of all the wires he is attached ot currently He states he has been having regular BMs He states he has been getting the breathing treatments a lot more than he does normally at home which is 2x a day He reports feeling pretty good otherwise and would like to move down to the 4th floor Review of Systems HEENT: No Head Aches, No Visual Changes Pulmonary: No Dyspnea; Cough Cardiovascular: No: Chest Pain, Palpitations, Edema Gastrointestinal: No: Nausea, Vomiting, Abdominal Pain, Diarrhea, Constipation Genitourinary: No Dysuria, No Hematuria Neurological: No: Weakness, Numbness Objective Exam Vital Signs Vital Signs Date Time Temp Pulse Resp B/P (MAP) Pulse Ox O2 Delivery O2 Flow Rate FiO2 03/05/19 08:55 93 Nasal Cannula 2.00 03/05/19 08:35 36.5 03/05/19 08:00 84 17 134/69 (90) Capillary Refill : Less Than 3 Seconds General Appearance: Chronically ill, Mild Distress Respiratory: Chest Non Tender, Lungs Clear, No Accessory Muscle Use, No Respiratory Distress Cardiovascular: Regular Rate, Rhythm, No Murmur, Normal Peripheral Pulses Extremity: Non Tender, No Calf Tenderness, No Pedal Edema Neurologic/Psychiatric: Alert, Oriented x3, No Motor/Sensory Deficits, Normal Mood/Affect Skin: Normal Color, Warm/Dry Results/Procedures Lab Laboratory Tests 03/05/19 03:05 Patient resulted labs reviewed. Assessment/Plan Assessment and Plan Assess & Plan/Chief Complaint Assessment: Lung mass Right pneumothorax post lung biopsy COPD Hx tobacco abuse Urinary retention secondary to BPH Hx of CAD Plan: Monitor pneumothorax with pulmonology consultation DVT Prophylaxis DuoNeb treatments QID COPD management Monitor patient blood pressure Clinical Quality Measures DVT/VTE Risk/Contraindication: Risk Factor Score Per Nursin RFS Level Per Nursing on Admit: 4+=Very High BELEN CABRERA DO 03/05/191958: Subjective Subjective/Events-last exam Pt reluctant but agreeable for stay. Additional chest tube placed and it has re-inflated the pneumothorax so hopefully he will not require cardiothoracic surgery. Pt breathing much better today. Cough is productive. Review of Systems General: Fatigue Pulmonary: Dyspnea, Cough Objective Exam General Appearance: No Apparent Distress, WD/WN, Chronically ill Respiratory: Crackles, Decreased Breath Sounds Cardiovascular: Regular Rate, Rhythm Assessment/Plan Assessment and Plan Assess & Plan/Chief Complaint Chest tube management Diagnosis/Problems Diagnosis/Problems (1) Pneumothorax after biopsy (2) COPD (chronic obstructive pulmonary disease) (3) Cough (4) Pneumothorax after biopsy (5) RESPIRATORY FAILURE, UNSP, UNSP W HYPOXIA OR HYPERCAPNIA Supervisory-Addendum Brief Verification & Attestation Participated in pt care: history, MDM, physical Personally performed: exam, history, MDM, supervision of care Care discussed with: Medical Student Procedures: n/a Results interpretation: Verified all documentation Verification and Attestation of Medical Student E/M Service A medical student performed and documented this service in my presence. I reviewed and verified all information documented by the medical student and made modifications to such information, when appropriate. I personally performed the physical exam and medical decision making. Belen Cabrera, Mar 05, 2019,19:59 [facility] Mar 05, 2019 10:46 BELEN FERRO DO Mar 05, 2019 19:59 POS
[2019-03-05] MEDS: RT-ADVAIR HFA 115/21 MCG PER PUFF IH SCH ×2 (10:47→19:23)
--- NOTE | 2019-03-05 11:25 | NUR ---
Pastoral care visit.
[2019-03-05] MEDS: BENZONATATE 100 MG (TESSALON) CAPSULE PO PRN (11:35)
[2019-03-05] MEDS: PIPERACILLIN/TAZOBACTAM (BULK) 4.5 GM in NS (IVPB) 100 ML IV SCH ×2 (14:03→20:44)
[2019-03-05] MEDS: TAMSULOSIN 0.4 MG (FLOMAX) CAP PO SCH (17:18)
[2019-03-06] MEDS: methylPREDNISolone 40 MG/ML (Solu-MEDROL) VIAL IV SCH ×4 (00:30→17:56)
[2019-03-06] MEDS: SIMvastatin 10 MG (ZOCOR) TAB PO SCH (00:30)
[2019-03-06 03:20] LABS: BASOPHILS % (AUTO) 0 % (0-10); EOSINOPHILS % (AUTO) 0 % (0-10); HEMATOCRIT 40 % (40-54); LYMPHOCYTES # (AUTO) 0.5 X 10^3 (1.0-4.0); LYMPHOCYTES % (AUTO) 6 % (12-44); MEAN CORPUSCULAR HEMOGLOBIN 29 PG (25-34); MEAN CORPUSCULAR HGB CONC 33 G/DL (32-36); MEAN CORPUSCULAR VOLUME 89 FL (80-99); MEAN PLATELET VOLUME 9.4 FL (7.4-10.4); MONOCYTES # (AUTO) 0.5 X 10^3 (0.0-1.0); MONOCYTES % (AUTO) 6 % (0-12); NEUTROPHILS # (AUTO) 7.8 X 10^3 (1.8-7.8); NEUTROPHILS % (AUTO) 89 % (42-75); PLATELET COUNT 203 10^3/uL (130-400); WHITE BLOOD COUNT 8.8 10^3/uL (4.3-11.0)
[2019-03-06 03:41] LABS: BUN/CREATININE RATIO 28; CALCIUM 8.7 MG/DL (8.5-10.1); CARBON DIOXIDE 25 MMOL/L (21-32); CHLORIDE 106 MMOL/L (98-107); CREATININE SERUM 0.72 MG/DL (0.60-1.30); GFR ESTIMATED > 60; GLUCOSE 117 MG/DL (70-105); MAGNESIUM 2.4 MG/DL (1.6-2.4); PHOSPHORUS 3.1 MG/DL (2.3-4.7); POTASSIUM 3.9 MMOL/L (3.6-5.0); SODIUM 140 MMOL/L (135-145)
--- NOTE | 2019-03-06 03:46 | Pulmonary Progress Note ---
SHANNAN TONEY A MEDICAL STUDENT 03/06/19 0346: Subjective Date Seen by a Provider: Mar 06, 2019 Time Seen by a Provider: 03:45 Sepsis Event Evaluation Height, Weight, BMI Height: '" Weight: lbs. oz. kg; 23.00 BMI Method: Exam Exam Vital Signs Date Time Temp Pulse Resp B/P (MAP) Pulse Ox O2 Delivery O2 Flow Rate FiO2 03/06/19 03:23 36.6 03/06/19 01:00 95 03/05/19 23:45 36.8 77 20 145/78 (100) 91 Nasal Cannula 3.00 03/05/19 22:37 82 20 134/72 (92) 92 Nasal Cannula 3.00 03/05/19 20:00 93 Nasal Cannula 3.00 03/05/19 19:23 98 Nasal Cannula 3.00 03/05/19 19:00 90 03/05/19 16:26 Nasal Cannula 3.00 03/05/19 16:00 95 20 117/78 (91) Nasal Cannula 2.00 03/05/19 14:57 92 Nasal Cannula 3.00 03/05/19 13:00 94 03/05/19 12:00 36.8 103 31 129/76 (93) 95 Nasal Cannula 2.00 03/05/19 11:48 36.7 03/05/19 10:48 93 Nasal Cannula 3.00 03/05/19 08:55 93 Nasal Cannula 2.00 03/05/19 08:35 36.5 03/05/19 08:00 84 17 134/69 (90) 93 Nasal Cannula 2.00 03/05/19 07:23 93 Nasal Cannula 3.00 03/05/19 07:00 109 03/05/19 06:00 81 19 158/77 (104) 93 Nasal Cannula 2.00 03/05/19 05:00 82 16 153/90 (111) 92 Nasal Cannula 2.00 03/05/19 04:00 79 17 155/90 (111) 92 Nasal Cannula 2.00 I & O 03/06/19 07:00 Intake Total 1390 ml Output Total 1325 ml Balance 65 ml Height & Weight Height: '" Weight: lbs. oz. kg; 23.00 BMI Method: General Appearance: No Apparent Distress, WD/WN, Chronically ill HEENT: PERRL/EOMI Neck: Full Range of Motion, Normal Inspection Respiratory: Crackles, Decreased Breath Sounds Cardiovascular: Regular Rate, Rhythm Capillary Refill: Less Than 3 Seconds Peripheral Pulses: 2+ Dorsalis Pedis (R), 2+ Left Dors-Pedis (L), 2+ Radial Pulses (R), 2+ Radial Pulses (L) Gastrointestinal: normal bowel sounds, non tender, soft Extremity: Non Tender, No Calf Tenderness, No Pedal Edema Neurologic/Psychiatric: Alert, Oriented x3, No Motor/Sensory Deficits, Normal Mood/Affect Skin: Normal Color, Warm/Dry Results Lab Laboratory Tests 03/05/19 03:05 03/06/19 03:00 Assessment/Plan Assessment/Plan Lung mass s/p CT bx -S/P second chest tube -Cytology pending -Persistent Small Air Leak -Send pleural fluid down for cytology and cultures. Iatrogenic right right PTX with continuous air leak -S/P 2 chest tubes upper and lower -Will continue to monitor now and continue suction. 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 -Continue solumedrol -Last PFT was 02/02 showed severe COPD/emphysema with DLCO 39 -Culture sputum -Change Abx to Zosyn Hx CAD last stent was 6yrs ago -If repeat CT of chest looks good will restart Plavix COPDAE -Duoneb Q 4 and Advair -Continue solumedrol 40 IV Q 6 -Oxygen -- PT does not have home 02 Strong nonproductive cough -SVNS -Solumedrol Iatrogenic right PTX s/p chest tube -CXR 03/03 - no identifiable PTX, improving infiltrate -CT chest 03/03 -Small PTX with catheter in place, airspace opacities in lower lobes R>L -Continue oxygen Urinary retention secondary to BPH -S/p dash catheter -Flomax DVT Prophylaxis -Lovenox Sub Q daily. HX of CAD AISLINNJOSR Ranjit DO 03/06/19 1001: Subjective Subjective/Events-last exam PT denies SOB. He does have a strong productive cough of yellow sputum. Exam Exam General Appearance: WD/WN, Chronically ill HEENT: PERRL/EOMI Neck: Full Range of Motion, Normal Inspection Respiratory: No Accessory Muscle Use, Crackles, Decreased Breath Sounds Capillary Refill: Less Than 3 Seconds Gastrointestinal: normal bowel sounds, non tender, soft Extremity: Non Tender, No Calf Tenderness, No Pedal Edema Neurologic/Psychiatric: Alert, Oriented x3, No Motor/Sensory Deficits, Normal Mood/Affect Skin: Normal Color, Warm/Dry Assessment/Plan Assessment/Plan Lung mass s/p CT bx -S/P second chest tube -Cytology pending -Persistent Small Air Leak - pleural fluid cytology and cultures pending . Iatrogenic right right PTX with continuous air leak -S/P 2 chest tubes upper and lower -Will continue to monitor now and continue suction. 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 HX of CAD Supervisory-Addendum Brief Verification & Attestation Participated in pt care: history Personally performed: exam, history Care discussed with: Medical Student Procedures: n/a Verification and Attestation of Medical Student E/M Service A medical student performed and documented this service in my presence. I reviewed and verified all information documented by the medical student and made modifications to such information, when appropriate. I personally performed the physical exam and medical decision making. Josr Baumann, Mar 06, 2019,10:01 SHANNAN TONEY MEDICAL STUDENT Mar 06, 2019 03:46 JOSR TABOR DO Mar 06, 2019 10:01 POS
[2019-03-06 04:00] VITALS: BP 154/82
[2019-03-06] MEDS: POTASSIUM CL 10MEQ/50ML IVPB 50 ML IV SCH (06:16)
[2019-03-06] MEDS: MAGNESIUM 1 GM/100 ML IVPB 100 ML IV SCH (06:16)
[2019-03-06] MEDS: KCL 20 MEQ TAB (K-DUR) PO SCH (06:16)
[2019-03-06] MEDS: PIPERACILLIN/TAZOBACTAM (BULK) 4.5 GM in NS (IVPB) 100 ML IV SCH ×3 (06:18→21:38)
[2019-03-06] MEDS: ENOXAPARIN 40 MG/0.4 ML (LOVENOX) SYR SC SCH (06:19)
[2019-03-06] MEDS: RT-ADVAIR HFA 115/21 MCG PER PUFF IH SCH ×2 (06:47→19:19)
[2019-03-06] MEDS: RT-ALBUTEROL/IPRATROPIUM 3 ML (DUONEB) VIAL INH SCH ×4 (06:47→19:19)
[2019-03-06 07:45] VITALS: BP 120/66
--- NOTE | 2019-03-06 10:46 | Diagnostic Imaging Report ---
INDICATION: Daily ICU management. COMPARISON: March 05, 2019. TECHNIQUE: Single frontal radiograph of the chest dated March 06, 2019. FINDINGS: Right-sided chest tubes are again identified, appearing relatively similar to the prior examination. Postsurgical changes within the cervical spine and median sternotomy are again identified. The cardiac silhouette is within normal limits in size. No significant pulmonary vascular congestion. Background chronic obstructive pulmonary disease is again seen. Round mass lesion within the right lung base is stable. Slightly increasing right basilar interstitial opacities. No additional new focal pulmonary opacity. No significant pleural effusion. No definite pneumothorax. Subcutaneous emphysema within the right lateral chest is again noted. Osseous structures are stable. IMPRESSION: 1. No definite pneumothorax identified with right-sided chest tubes remaining in place. 2. Persistent right basilar mass lesion. 3. Slightly increasing right basilar atelectasis and/or pneumonitis. Dictated by: Dictated on workstation # [id number]
--- NOTE | 2019-03-06 11:34 | Physical Therapy Evaluation ---
PT Evaluation-General Medical Diagnosis Admission Date Mar 01, 2019 at 13:03 Medical Diagnosis: pneumothorax post lung biopsy Onset Date: Mar 01, 2019 Therapy Diagnosis Therapy Diagnosis: weakness Precautions Precautions/Isolations: Fall Prevention, Standard Precautions Referral Physician: Ibis Reason for Referral: Evaluation/Treatment Medical History Pertinent Medical History: CAD, COPD Additional Medical History respiratory failure Current History Post needle biopsy of the lung, pt had a pneumothorax Reviewed History: Yes Social History Home: Single Level Current Living Status: Alone Prior Prior Level of Function SCALE: Activities may be completed with or without assistive devices. 0-Eakyfpkjyy-yhfkavb completes the activity by him/herself with no assistance from a helper. 5-Set-up or Clean-up Assistance-helper sets up or cleans up; patient completes a ctivity. [place] assists only prior to or following the activity. 4-Supervision or Touching Assistance-helper provides verbal cues and/or touching/steadying and/or contact guard assistance as patient completes activity. Assistance may be provided throughout the activity or intermittently. 3-Partial/Moderate Assistance-helper does LESS THAN HALF the effort. [place] lifts, holds or supports trunk or limbs, but provides less than half the effort. 2-Substantial/Maximal Assistance-helper does MORE THAN HALF the effort. [place] lifts or holds trunk or limbs and provides more than half the effort. 2-Qpwtoahme-idanma does ALL the effort. Patient does none of the effort to complete the activity. Or, the assistance of 2 or more helpers is required for the patient to complete the activity. If activity was not attempted, code reason: 7-Patient Refused. 9-Not Applicable-not attempted and the patient did not perform the activity before the current illness, exacerbation or injury. 10-Not Attempted due to Environmental Limitations-(lack of equipment, weather restraints, etc.). 88-Not Attempted due to Medical Conditions or Safety Concerns. Pt is indep at [facility]; lives alone and drives; active. PT Evaluation-Current Subjective Pt agreeable to PT and to sit up in the chair. Pain Numeric Pain Scale: 0-No Pain Objective Patient Orientation: Person, Place, Time, Situation Attachments: Chest Tube, Oxygen ROM/Strength ROM Lower Extremities wNL Strength Lower Extremities WNL Integumentary/Posture Integumentary intact Bowel Incontinence: No Bladder Incontinence: No Posture normal and symmetrical Neuromuscular (Tone, Coordination, Reflexes) no noted deficits Sensory Vision: Functional Hearing: Functional Hand Dominance: Right Sensation Right Lower Extremit: Intact Transfers Roll Left to Right (QC): 4 Sit to Lying (QC): 4 Lying to Sitting/Side of Bed(Q: 4 Sit to Stand (QC): 4 Chair/Zzj-gl-Ggbgs Xfer(QC): 4 Car Transfer (QC): 10 SBA with all functional trasnfers; assist for attachement and tube management. Gait Does the Patient Walk?: Yes Walk 10 feet (QC): 88 Walk 50 ft with 2 Turns(QC): 88 Walk 150 ft (QC): 88 Walking 10ft/uneven surface-QC: 88 Comments/Gait Description Pt was able to take 4-5 steps to transfer to the chair without AD with SBA; limited gait distance due to chest tube and other attachments. Pt performed sit to stand to don underwear. Wheelchair Training Does the Pt Use a Wheelchair?: No Wheel 50 ft with 2 turns (QC): 9 Wheel 150 ft (QC): 9 Type of Wheelchair: Manual Stairs 1 Step (curb) (QC): 9 4 Steps (QC): 9 12 Steps (QC): 9 Balance Sitting Static: Normal Sitting Dynamic: Normal Standing Static: Normal Picking up an Object (QC): 88 Treatment Pt eval complete; put up in chair post treatment with needs met. Assessment/Needs Pt presents with decreased functional mobility due to recent hospital stay; he is currently limited in mobility due to attachements. He mobilizes well and I predict that once he is not attached to so many items, he will mobilize without assist. Rehab Potential: Good PT Web Knitter Goals Web Knitter Goals PT Web Knitter Goals Time Frame: Mar 09, 2019 Roll Left & Right (QC): 6 Sit to Lying (QC): 6 Lying-Sitting on Side/Bed(QC): 6 Sit to Stand (QC): 6 Chair/Nip-ox-Eghxy Xfer(QC): 6 Toilet Transfer (QC): 6 Car Transfer (QC): 6 Does the Patient Walk: Yes Walk 10 feet (QC): 6 Walk 50ft with 2 Turns (QC): 6 Walk 150 ft (QC): 6 Walking 10ft on Uneven Surface: 6 1 Step (curb) (QC): 6 4 Steps (QC): 6 12 Steps (QC): 6 Picking up an Object (QC): 5 Does the Pt use WC or Scooter?: No Type: N/A Type: N/A PT Plan Problem List Problem List: Activity Tolerance, Functional Strength, Safety, Balance, Gait, Transfer, Bed Mobility Treatment/Plan Treatment Plan: Continue Plan of Care Treatment Plan: Bed Mobility, Education, Functional Activity Mariah, Functional Strength, Gait, Safety, Therapeutic Exercise Treatment Duration: Mar 09, 2019 Frequency: 6 times per week Estimated Hrs Per Day: .5 hour per day Patient and/or Family Agrees t: Yes Safety Risks/Education Patient Education: Safety Issues Teaching Recipient: Patient Teaching Methods: Discussion Response to Teaching: Reinforcement Needed Time/GCodes Time In: 1050 Time Out: 1105 Total Billed Treatment Time: 15 Total Billed Treatment visit EVM 15 KVNG FOLEY PT Mar 06, 2019 11:34 POS
--- NOTE | 2019-03-06 11:56 | Progress Note - Hospitalist ---
[facility] 03/06/19 1156: Subjective HPI/CC On Admission Date Seen by Provider: Mar 06, 2019 Time Seen by Provider: 08:12 on the patient underwent fine-needle biopsy of a PET scan positive right sided lung mass. Procedure was complicated by pneumothorax requiring chest tube placement and overnight monitoring. Patient reports pain at chest tube site. Subjective/Events-last exam Pt was still having severe coughing with yellow colored sputum production He reports being bored and having his normal amount of difficulty breathing He states he is very shaky when he stands up and requires assistance to use the commode He does report normal bowel movements He has no other complaints currently Review of Systems General: No Chills HEENT: No Head Aches, No Visual Changes Pulmonary: Dyspnea, Cough Cardiovascular: No: Chest Pain, Palpitations Gastrointestinal: No: Nausea, Vomiting, Abdominal Pain, Diarrhea, Constipation Genitourinary: No Dysuria, No Hematuria Neurological: Weakness; No: Numbness, Confusion Objective Exam Vital Signs Vital Signs Date Time Temp Pulse Resp B/P (MAP) Pulse Ox O2 Delivery O2 Flow Rate FiO2 03/06/19 11:21 93 Nasal Cannula 3.00 03/06/19 08:00 36.6 03/06/19 07:45 104 25 120/66 (84) Capillary Refill : Less Than 3 Seconds General Appearance: Moderate Distress Respiratory: Chest Non Tender, Normal Breath Sounds, No Accessory Muscle Use, No Respiratory Distress Cardiovascular: Regular Rate, Rhythm, No Murmur, Normal Peripheral Pulses Extremity: Non Tender, No Calf Tenderness, No Pedal Edema Neurologic/Psychiatric: Alert, Oriented x3, No Motor/Sensory Deficits, Normal Mood/Affect Skin: Normal Color, Warm/Dry Results/Procedures Lab Laboratory Tests 03/06/19 03:00 Patient resulted labs reviewed. Assessment/Plan Assessment and Plan Assess & Plan/Chief Complaint Assessment: Lung mass Right pneumothorax post lung biopsy COPD Hx tobacco abuse Urinary retention secondary to BPH Hx of CAD Weakness upon standing Plan: Monitor pneumothorax with pulmonology consultation DVT Prophylaxis DuoNeb treatments QID COPD management Monitor patient blood pressure PT/OT assessment Clinical Quality Measures DVT/VTE Risk/Contraindication: Risk Factor Score Per Nursin RFS Level Per Nursing on Admit: 4+=Very High BELEN CABRERA DO 03/06/192051: Subjective Subjective/Events-last exam Lungs are becoming more expanded on the right side Likely will require stay until next Monday Antibiotics and steroids on board and tolerated Biopsy results pending Review of Systems Pulmonary: Dyspnea Objective Exam General Appearance: No Apparent Distress, WD/WN Respiratory: No Accessory Muscle Use, No Respiratory Distress, Decreased Breath Sounds Neurologic/Psychiatric: Alert, Oriented x3, No Motor/Sensory Deficits, Normal Mood/Affect Assessment/Plan Assessment and Plan Assess & Plan/Chief Complaint Biopsy pending Diagnosis/Problems Diagnosis/Problems (1) Pneumothorax after biopsy Supervisory-Addendum Brief Verification & Attestation Participated in pt care: history, MDM, physical Personally performed: exam, history, MDM, supervision of care Care discussed with: Medical Student Procedures: n/a Results interpretation: Verified all documentation Verification and Attestation of Medical Student E/M Service A medical student performed and documented this service in my presence. I reviewed and verified all information documented by the medical student and made modifications to such information, when appropriate. I personally performed the physical exam and medical decision making. Belen Cabrera, Mar 06, 2019,20:52 [facility] Mar 06, 2019 11:56 BELEN FERRO DO Mar 06, 2019 20:52 POS
[2019-03-06 12:00] VITALS: BP 107/61
--- NOTE | 2019-03-06 14:31 | Occupational Therapy Eval ---
OT Evaluation-General/PLF Medical Diagnosis Admission Date Mar 01, 2019 at 13:03 Medical Diagnosis: pneumothorax post lung biopsy Onset Date: Mar 01, 2019 Therapy Diagnosis Therapy Diagnosis: Weakness Precautions Precautions/Isolations: Fall Prevention, Standard Precautions Safety Interventions: None Weight Bear Status Weight Bearing Restriction: Weight Bearing/Tolerated Referral Physician: Ibis Referral Reason: Activity Tolerance, Self Care, Evaluation/Treatment, Strengthening/ROM Medical History Pertinent Medical History: CAD, COPD Current History Pt. had fine needle biopsy of a lung mass. Sustained a pneumothorax. Pt. currently has chest tube. Reviewed History: Yes Social History Home: Single Level Current Living Status: Spouse Entry Into Home: Stairs With Railing Steps Into Home: 4 ADL-Prior Level of Function SCALE: Activities may be completed with or without assistive devices. 8-Zjeknxwmgl-tfbeazq completes the activity by him/herself with no assistance from a helper. 5-Set-up or Clean-up Assistance-helper sets up or cleans up; patient completes activity. [place] assists only prior to or following the activity. 4-Supervision or Touching Assistance-helper provides verbal cues and/or touching/steadying and/or contact guard assistance as patient completes activity. Assistance may be provided throughout the activity or intermittently. 3-Partial/Moderate Assistance-helper does LESS THAN HALF the effort. [place] lifts, holds or supports trunk or limbs, but provides less than half the effort. 2-Substantial/Maximal Assistance-helper does MORE THAN HALF the effort. [place] lifts or holds trunk or limbs and provides more than half the effort. 9-Nourtxrvk-qomrxm does ALL the effort. Patient does none of the effort to complete the activity. Or, the assistance of 2 or more helpers is required for the patient to complete the activity. If activity was not attempted, code reason: 7-Patient Refused. 9-Not Applicable-not attempted and the patient did not perform the activity before the current illness, exacerbation or injury. 10-Not Attempted due to Environmental Limitations-(lack of equipment, weather restraints, etc.). 88-Not Attempted due to Medical Conditions or Safety Concerns. ADL PLOF Comments Pt. reports that he is independent with daily tasks. Self Care: Independent Functional Cognition: Independent DME/Equipment Comments Pt. states that he does not have equipment that he uses at home. Occupation: Retired [employer] and then from [employer]. Drive Self: Yes OT Current Status Subjective Pt. reports that he is having some pain in left groin, but that nursing and physician are aware. Does not report pain level. Appearance Pt. up in chair. alert and oriented. Mental Status/Objective Patient Orientation: Person, Place, Time, Situation Attachments: IV Current Hand Dominance: Right Upper Extremity ROM WFL- Pt. is able to raise bilateral UE with no difficulty. Upper Extremity Coordination intact Upper Extremity Strength NT due to chest tubing ADL-Treatment Eating (QC): 6 (Pt. is able to forklift picker cup and bring to mouth. No difficulty with swallowing. Reports that he has no difficulty with eating when he likes the food.) Oral Hygiene (QC): 7 Shower/Bathe Self (QC): 88 Upper Body Dressing (QC): 88 (Chest tube) Lower Body Dressing (QC): 6 (Seated, pt. is able to bring bilateral feet up to self and doff/don slipper socks with no difficulty.) On/Off Footwear (QC): 6 Toileting Hygiene (QC): 7 (Pt. declines toileting at this time but states that he is not incontinent and is using urinal.) Toilet Transfer (QC): 7 Other Treatments Pt. is up in chair. States that he is comfortable and declines transferring back to bed. Pt. reports that he is able to complete the ADL tasks that are available to him, such as reaching feet, toileting, feeding self. Reports that he knows he needs to "keep moving" because he does not want to get weak. Pt. reports that he does not have a walker or need one, but will ask for one when that time comes. This OT spoke with nursing and PT, who state that pt. is physically transferring well. Will check on pt. one more time to establish a HEP for continued strength. All other needs met up in chair. Education OT Patient Education: Correct positioning, Modified ADL techniques, Progress toward Goal/Update tx plan, Purpose of tx/functional activities, Reviewed precautions, Rehab process Teaching Recipient: Patient Teaching Methods: Demonstration, Discussion Response to Teaching: Verbalize Understanding, Return Demonstration OT Fci Goals Fci Goals Time Frame: Mar 07, 2019 Eating (QC): 6 Oral Hygiene (QC): 6 Toileting Hygiene (QC): 6 Shower/Bathe Self (QC): 5 Upper Body Dressing (QC): 6 Lower Body Dressing (QC): 6 On/Off Footwear (QC): 6 Above goals have been demonstrated, or will be demonstrated/reported as met at next session. Pt.'s main OT focus will be to establish HEP for continued strength. Additional Goals: 1-Demonstrate ADL Tasks, 2-Verbalize Understanding, 3- ImproveStrength/Mariah 1=Demonstrate adherence to instructed precautions during ADL tasks. 2=Patient will verbalize/demonstrate understanding of assistive devices/modifications for ADL. 3=Patient will improve strength/tolerance for activity to enable patient to perform ADL's. OT Education/Plan Problem List/Assessment Assessment: Decreased Activ Tolerance Discharge Recommendations Plan/Recommendations: Continue POC Treatment Plan/Plan of Care Treatment,Training & Education: Yes Patient would benefit from OT for education, treatment and training to promote independence in ADL's, mobility, safety and/or upper extremity function for ADL's. Plan of Care: UE Funct Exercise/Act Treatment Duration: Mar 07, 2019 Frequency: 1 time per week Estimated Hrs Per Day: .25 hour per day Agreement: Yes Rehab Potential: Good Time/GCodes Start Time: 13:55 Stop Time: 14:05 Total Time Billed (hr/min): 10 Billed Treatment Time 1, SB [place] OT Mar 06, 2019 14:31 POS
[2019-03-06 16:00] VITALS: BP 142/72
[2019-03-06] MEDS: TAMSULOSIN 0.4 MG (FLOMAX) CAP PO SCH (17:56)
[2019-03-06 20:00] VITALS: BP 129/66
[2019-03-06 23:59] VITALS: BP 145/82
[2019-03-07] VITALS: BP 145/82
[2019-03-07] MEDS: SIMvastatin 10 MG (ZOCOR) TAB PO SCH (00:01)
[2019-03-07] MEDS: BENZONATATE 100 MG (TESSALON) CAPSULE PO PRN (00:01)
[2019-03-07] MEDS: methylPREDNISolone 40 MG/ML (Solu-MEDROL) VIAL IV SCH ×5 (00:01→23:02)
[2019-03-07 03:04] LABS: BASOPHILS % (AUTO) 0 % (0-10); EOSINOPHILS % (AUTO) 0 % (0-10); HEMATOCRIT 40 % (40-54); HEMOGLOBIN 13.3 G/DL (13.3-17.7); LYMPHOCYTES # (AUTO) 0.6 X 10^3 (1.0-4.0); LYMPHOCYTES % (AUTO) 6 % (12-44); MEAN CORPUSCULAR HEMOGLOBIN 30 PG (25-34); MEAN CORPUSCULAR HGB CONC 33 G/DL (32-36); MEAN CORPUSCULAR VOLUME 90 FL (80-99); MEAN PLATELET VOLUME 9.9 FL (7.4-10.4); MONOCYTES # (AUTO) 0.5 X 10^3 (0.0-1.0); MONOCYTES % (AUTO) 6 % (0-12); NEUTROPHILS # (AUTO) 7.7 X 10^3 (1.8-7.8); NEUTROPHILS % (AUTO) 88 % (42-75); PLATELET COUNT 202 10^3/uL (130-400); RED CELL DISTRIBUTION WIDTH 14.8 % (10.0-14.5); WHITE BLOOD COUNT 8.8 10^3/uL (4.3-11.0)
[2019-03-07 03:34] LABS: BUN/CREATININE RATIO 27; CALCIUM 8.5 MG/DL (8.5-10.1); CARBON DIOXIDE 24 MMOL/L (21-32); CHLORIDE 104 MMOL/L (98-107); CREATININE SERUM 0.79 MG/DL (0.60-1.30); GFR ESTIMATED > 60; GLUCOSE 115 MG/DL (70-105); MAGNESIUM 2.4 MG/DL (1.6-2.4); PHOSPHORUS 2.8 MG/DL (2.3-4.7); POTASSIUM 4.1 MMOL/L (3.6-5.0); SODIUM 138 MMOL/L (135-145)
[2019-03-07] MEDS: MAGNESIUM 1 GM/100 ML IVPB 100 ML IV SCH (03:37)
[2019-03-07] MEDS: KCL 20 MEQ TAB (K-DUR) PO SCH (03:37)
[2019-03-07] MEDS: POTASSIUM CL 10MEQ/50ML IVPB 50 ML IV SCH (03:37)
--- NOTE | 2019-03-07 04:21 | Pulmonary Progress Note ---
Subjective Date Seen by a Provider: Mar 07, 2019 Time Seen by a Provider: 04:19 Subjective/Events-last exam Pt had no acute events overnight, Pt still has persistent air leak from upper chest tube Sepsis Event Evaluation Height, Weight, BMI Height: '" Weight: lbs. oz. kg; 23.00 BMI Method: Exam Exam Vital Signs Date Time Temp Pulse Resp B/P (MAP) Pulse Ox O2 Delivery O2 Flow Rate FiO2 03/07/19 03:39 36.6 03/07/19 01:00 65 03/07/19 00:00 71 25 145/82 (103) 93 Nasal Cannula 3.00 03/06/19 23:59 68 18 145/82 (103) 93 Nasal Cannula 3.00 03/06/19 23:59 36.6 03/06/19 20:00 36.7 94 23 129/66 (87) 96 Nasal Cannula 3.00 03/06/19 20:00 93 Nasal Cannula 3.00 03/06/19 19:19 92 Nasal Cannula 3.00 03/06/19 19:00 84 03/06/19 16:00 36.7 97 18 142/72 (95) 95 Nasal Cannula 3.00 03/06/19 14:34 92 Nasal Cannula 3.00 03/06/19 12:52 87 03/06/19 12:00 36.4 95 24 107/61 (76) 93 Nasal Cannula 3.00 03/06/19 11:21 93 Nasal Cannula 3.00 03/06/19 08:34 94 Nasal Cannula 3.00 03/06/19 08:00 36.6 03/06/19 07:45 104 25 120/66 (84) Nasal Cannula 3.00 03/06/19 06:47 94 Nasal Cannula 3.00 03/06/19 06:45 79 I & O 03/07/19 07:00 Intake Total 860 ml Output Total 450 ml Balance 410 ml Height & Weight Height: '" Weight: lbs. oz. kg; 23.00 BMI Method: General Appearance: No Apparent Distress, WD/WN HEENT: PERRL/EOMI Neck: Full Range of Motion, Normal Inspection Respiratory: No Accessory Muscle Use, No Respiratory Distress, Decreased Breath Sounds Cardiovascular: Regular Rate, Rhythm, No Murmur, Normal Peripheral Pulses Capillary Refill: Less Than 3 Seconds Peripheral Pulses: 2+ Dorsalis Pedis (R), 2+ Left Dors-Pedis (L), 2+ Radial Pulses (R), 2+ Radial Pulses (L) Gastrointestinal: normal bowel sounds, non tender, soft Extremity: Non Tender, No Calf Tenderness, No Pedal Edema Neurologic/Psychiatric: Alert, Oriented x3, No Motor/Sensory Deficits, Normal Mood/Affect Skin: Normal Color, Warm/Dry Results Lab Laboratory Tests 03/06/19 03:00 03/07/19 02:50 Assessment/Plan Assessment/Plan Lung mass s/p CT bx -S/P second chest tube -Cytology pending -Persistent Small Air Leak -Results of cytology and cultures from pleural fluid pending Iatrogenic right right PTX with continuous air leak -S/P 2 chest tubes upper and lower -Will continue to monitor now and continue suction. 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 -Continue solumedrol -Last PFT was 02/02 showed severe COPD/emphysema with DLCO 39 -Sputum culture grew out Serratia, susceptibility pending -Continue Zosyn Hx CAD last stent was 6yrs ago -Plavix COPDAE -Pt will probably need home 02 -Duoneb Q 4 and Advair -Continue solumedrol 40 IV Q 6 -Oxygen -- PT does not have home 02 Strong nonproductive cough -SVNS -Solumedrol Iatrogenic right PTX s/p chest tube -CXR 03/07 shows no identifiable PTX, chest tubes in place -Continue oxygen -will continue to monitor Urinary retention secondary to BPH -S/p Hoyt catheter -Flomax DVT Prophylaxis -Lovenox Sub Q daily. HX of SHANNAN CHANCE MEDICAL STUDENT Mar 07, 2019 04:21 POS
[2019-03-07] MEDS: ENOXAPARIN 40 MG/0.4 ML (LOVENOX) SYR SC SCH (05:24)
[2019-03-07] MEDS: PIPERACILLIN/TAZOBACTAM (BULK) 4.5 GM in NS (IVPB) 100 ML IV SCH ×3 (05:24→21:18)
[2019-03-07] MEDS: RT-ADVAIR HFA 115/21 MCG PER PUFF IH SCH ×2 (06:32→20:12)
[2019-03-07] MEDS: RT-ALBUTEROL/IPRATROPIUM 3 ML (DUONEB) VIAL INH SCH ×4 (06:32→20:12)
[2019-03-07 08:00] VITALS: BP 115/64
--- NOTE | 2019-03-07 08:32 | Progress Note - Hospitalist ---
FREDDIE SANCHEZ [facility] 03/07/19 0832: Subjective HPI/CC On Admission Date Seen by Provider: Mar 07, 2019 Time Seen by Provider: 07:17 on the patient underwent fine-needle biopsy of a PET scan positive right sided lung mass. Procedure was complicated by pneumothorax requiring chest tube placement and overnight monitoring. Patient reports pain at chest tube site. Subjective/Events-last exam Pt reports feeling the same at his normal baseline He states that his cough has been a little better with more clear but still yellow sputum, that comes in waves He reports sharp pain in the inguinal region when he coughs sometimes, and only in certain positions not every time he coughs He still has pain in the chest at his upper port when moving his arms He reports normal bowel movements He states he would like to ahve some of the cords removed so he would be able to move around more He states that his is coming up today to discuss his future treatment and possible oncologist He states that he was told the nodule in his lung is likely cancer we just do not know what type yet Review of Systems General: No Chills HEENT: No Head Aches, No Visual Changes Pulmonary: No Dyspnea; Cough Cardiovascular: No: Chest Pain, Palpitations, Edema Gastrointestinal: No: Nausea, Vomiting, Abdominal Pain, Diarrhea, Constipation Genitourinary: No Dysuria, No Hematuria Neurological: No: Weakness, Numbness, Confusion Objective Exam Vital Signs Vital Signs Date Time Temp Pulse Resp B/P (MAP) Pulse Ox O2 Delivery O2 Flow Rate FiO2 03/07/19 08:20 93 Nasal Cannula 3.00 03/07/19 08:18 37.1 03/07/19 08:00 85 18 115/64 (81) Capillary Refill : Less Than 3 Seconds General Appearance: Mild Distress Respiratory: Lungs Clear, Normal Breath Sounds, No Accessory Muscle Use, No Respiratory Distress Cardiovascular: Regular Rate, Rhythm, No Murmur, Normal Peripheral Pulses Extremity: Non Tender, No Calf Tenderness, No Pedal Edema Neurologic/Psychiatric: Alert, Oriented x3, No Motor/Sensory Deficits, Normal Mood/Affect Skin: Normal Color, Warm/Dry Results/Procedures Lab Laboratory Tests 03/07/19 02:50 Patient resulted labs reviewed. Assessment/Plan Assessment and Plan Assess & Plan/Chief Complaint Assessment: Lung mass Right pneumothorax post lung biopsy COPD Hx tobacco abuse Urinary retention secondary to BPH Hx of CAD Weakness upon standing Plan: Monitor pneumothorax with pulmonology consultation DVT Prophylaxis DuoNeb treatments QID COPD management Monitor patient blood pressure PT/OT assessment Clinical Quality Measures DVT/VTE Risk/Contraindication: Risk Factor Score Per Nursin RFS Level Per Nursing on Admit: 4+=Very High BELEN CABRERA DO 03/07/192041: Subjective Subjective/Events-last exam No significant changes. Serratia bacteria grown on culture of bronch. Biopsy shows likely cancer but unknown type at this current time. Very significant pneumothorax, could show leak on chest X-ray today. Review of Systems General: Fatigue Pulmonary: Dyspnea, Cough Objective Exam General Appearance: No Apparent Distress, WD/WN Assessment/Plan Assessment and Plan Assess & Plan/Chief Complaint CT maintained Pain control Nebs Diagnosis/Problems Diagnosis/Problems (1) Infection, Serratia (2) Lung mass (3) Pneumothorax after biopsy (4) COPD (chronic obstructive pulmonary disease) (5) Cough Supervisory-Addendum Brief Verification & Attestation Participated in pt care: history, MDM, physical Personally performed: exam, history, MDM, supervision of care Care discussed with: Medical Student Procedures: n/a Results interpretation: Verified all documentation Verification and Attestation of Medical Student E/M Service A medical student performed and documented this service in my presence. I reviewed and verified all information documented by the medical student and made modifications to such information, when appropriate. I personally performed the physical exam and medical decision making. Belen Cabrera, Mar 07, 2019,20:42 [facility] SANC[facility] Mar 07, 2019 08:32 BELEN FERRO DO Mar 07, 2019 20:42 POS
--- NOTE | 2019-03-07 08:49 | Diagnostic Imaging Report ---
INDICATION: Pneumothorax. Time of exam 3:32 a.m. COMPARISON: Correlation is made with prior study one day earlier. FINDINGS: Thora-Vent chest tube overlies the right upper chest. Pigtail pleural catheter overlies the right base. No pneumothorax is seen. A rounded mass in the right base persists. There is subcutaneous emphysema along the right chest wall and supraclavicular regions bilaterally however this may be minimally improved. Left lung is clear. IMPRESSION: No evidence of pneumothorax. Chest wall emphysema does show some improvement when compared with examinations one and two days earlier. Dictated by: Dictated on workstation # [id number]
--- NOTE | 2019-03-07 11:22 | Physical Therapy Daily Note ---
PT Daily Note-Current Subjective Pt agrees to taking a walk with this PT. Reports he thinks he will be here another week. Mental Status Patient Orientation: Person, Place, Time, Situation Attachments: Chest Tube, Oxygen (in situ during and post treatment) Transfers SCALE: Activities may be completed with or without assistive devices. 7-Omaejipfos-nzchmdi completes the activity by him/herself with no assistance from a helper. 5-Set-up or Clean-up Assistance-helper sets up or cleans up; patient completes activity. [place] assists only prior to or following the activity. 4-Supervision or Touching Assistance-helper provides verbal cues and/or touching/steadying and/or contact guard assistance as patient completes activity. Assistance may be provided throughout the activity or intermittently. 3-Partial/Moderate Assistance-helper does LESS THAN HALF the effort. [place] lifts, holds or supports trunk or limbs, but provides less than half the effort. 2-Substantial/Maximal Assistance-helper does MORE THAN HALF the effort. [place] lifts or holds trunk or limbs and provides more than half the effort. 8-Yisxgtxbx-uppcit does ALL the effort. Patient does none of the effort to complete the activity. Or, the assistance of 2 or more helpers is required for the patient to complete the activity. If activity was not attempted, code reason: 7-Patient Refused. 9-Not Applicable-not attempted and the patient did not perform the activity before the current illness, exacerbation or injury. 10-Not Attempted due to Environmental Limitations-(lack of equipment, weather restraints, etc.). 88-Not Attempted due to Medical Conditions or Safety Concerns. Pt had gotten himself out of bed prior to this PT arrival. Reports he is able to get in/out of bed without assist. As PT entered, pt was in the process of toileting himself performing transfer and and pericare on his own. He was able to reach to flush the toilet as well. Gait Training Does the Patient Walk?: Yes Gait Assistive Device: None Pt ambulated x 200 ft without AD indep; PT present to manage oxygen tank and check tube containers. Pt walks at a normal and steady pace. Up in chair post treatment. Assessment Current Status: Excellent Progress Pt is mobilizing at an indep level. Will follow x 1 more day then plan discharge if he is still indep and safe PT Jail Goals Jail Goals PT Jail Goals Time Frame: Mar 09, 2019 Roll Left & Right (QC): 6 Sit to Lying (QC): 6 Lying-Sitting on Side/Bed(QC): 6 Sit to Stand (QC): 6 Chair/Awa-sw-Fsofg Xfer(QC): 6 Toilet Transfer (QC): 6 Car Transfer (QC): 6 Does the Patient Walk: Yes Walk 10 feet (QC): 6 Walk 50ft with 2 Turns (QC): 6 Walk 150 ft (QC): 6 Walking 10ft on Uneven Surface: 6 1 Step (curb) (QC): 6 4 Steps (QC): 6 12 Steps (QC): 6 Picking up an Object (QC): 5 Does the Pt use WC or Scooter?: No Type: N/A Type: N/A PT Plan Problem List Problem List: Safety Treatment/Plan Treatment Plan: Continue Plan of Care Treatment Plan: Bed Mobility, Education, Functional Activity Mariah, Functional Strength, Gait, Safety, Therapeutic Exercise Treatment Duration: Mar 09, 2019 Frequency: 6 times per week Estimated Hrs Per Day: .5 hour per day Patient and/or Family Agrees t: Yes Safety Risks/Education Patient Education: Safety Issues Teaching Recipient: Patient Teaching Methods: Discussion Response to Teaching: Verbalize Understanding Discharge Recommendations Plan DC after visit on 03/08/19 if he is still mobilizing at an indep level. Time/GCodes Time In: 918 Time Out: 928 Total Billed Treatment Time: 10 Total Billed Treatment visit GT 10 KVNG FOLEY PT Mar 07, 2019 11:22 POS
[2019-03-07 12:00] VITALS: BP 177/88
[2019-03-07] MEDS ORDERED: NS 100 ML (IVPB) BAG IV ONE (14:30)
[2019-03-07] MEDS ORDERED: HOLD METFORMIN - RECEIVED CONTRAST 20 ML VIAL IV SCH (14:30)
[2019-03-07] MEDS ORDERED: IOHEXOL 350 MG/ML 100 ML (OMNIPAQUE 350) VIAL IV ONE (14:30)
--- NOTE | 2019-03-07 14:38 | Occupational Ther Daily Note ---
OT Current Status-Daily Note Subjective No complaint of pain. Pt in room seated in recliner. Pt family present. Mental Status/Objective Patient Orientation: Person, Place, Time, Situation Attachments: Chest Tube, IV ADL-Treatment Therapy Code Descriptions/Definitions Functional [place] Measure: 0=Not Assessed/NA 4=Minimal Assistance 1=Total Assistance 5=Supervision or Setup 2=Maximal Assistance 6=Modified [place] 3=Moderate Assistance 7=Complete IndependenceSCALE: Activities may be completed with or without assistive devices. 2-Zhjmavxqui-eyflkoa completes the activity by him/herself with no assistance from a helper. 5-Set-up or Clean-up Assistance-helper sets up or cleans up; patient completes activity. [place] assists only prior to or following the activity. 4-Supervision or Touching Assistance-helper provides verbal cues and/or touching/steadying and/or contact guard assistance as patient completes activity. Assistance may be provided throughout the activity or intermittently. 3-Partial/Moderate Assistance-helper does LESS THAN HALF the effort. [place] lifts, holds or supports trunk or limbs, but provides less than half the effort. 2-Substantial/Maximal Assistance-helper does MORE THAN HALF the effort. [place] lifts or holds trunk or limbs and provides more than half the effort. 7-Akflphiul-svdeht does ALL the effort. Patient does none of the effort to complete the activity. Or, the assistance of 2 or more helpers is required for the patient to complete the activity. If activity was not attempted, code reason: 7-Patient Refused. 9-Not Applicable-not attempted and the patient did not perform the activity before the current illness, exacerbation or injury. 10-Not Attempted due to Environmental Limitations-(lack of equipment, weather restraints, etc.). 88-Not Attempted due to Medical Conditions or Safety Concerns. Other Treatment OT checked with nursing at the start of session. Nursing advised not to use any resistance when completing exercises due to chest tubing. Pt completed bilateral UE strengthening exercises to improve strength and activity tolerance. Pt completed 4 exercises, 2 sets of 5 reps with no resistant. Pt demonstrated ability to complete and understand all exercises. Pt demonstrated weakness of right hand when completing the exercises due to chest tube. OT monitored the pt when completing exercise. No pain or chest tightness reported. Pt was provided with exercises hand-out for more practice. Pt was also provided with min resistance theraband to practice at home. Pt seated in recliner at end of se ssion. Call light/phone in reach. All needs met. Education OT Patient Education: Energy conservation, Exercise program, Progress toward Goal/Update tx plan, Purpose of tx/functional activities, Reviewed precautions, Rehab process, Safety issues Teaching Recipient: Patient Teaching Methods: Demonstration, Discussion Response to Teaching: Verbalize Understanding, Return Demonstration OT Manager Plant Goals Manager Plant Goals Time Frame: Mar 07, 2019 Eating (QC): 6 Oral Hygiene (QC): 6 Toileting Hygiene (QC): 6 Shower/Bathe Self (QC): 5 Upper Body Dressing (QC): 6 Lower Body Dressing (QC): 6 On/Off Footwear (QC): 6 Above goals have been demonstrated, or will be demonstrated/reported as met at next session. Pt.'s main OT focus will be to establish HEP for continued strength. Additional Goals: 1-Demonstrate ADL Tasks, 2-Verbalize Understanding, 3- ImproveStrength/Mariah 1=Demonstrate adherence to instructed precautions during ADL tasks. 2=Patient will verbalize/demonstrate understanding of assistive devices/modifications for ADL. 3=Patient will improve strength/tolerance for activity to enable patient to perform ADL's. OT Education/Plan Problem List/Assessment Assessment: Decreased Activ Tolerance, Decreased UE Strength Discharge Recommendations Plan/Recommendations: Continue POC Therapy Discharge Recommendati: Post Acute OT Treatment Plan/Plan of Care Treatment,Training & Education: Yes Patient would benefit from OT for education, treatment and training to promote independence in ADL's, mobility, safety and/or upper extremity function for ADL's. Plan of Care: UE Funct Exercise/Act Treatment Duration: Mar 07, 2019 Frequency: 1 time per week Estimated Hrs Per Day: .25 hour per day Agreement: Yes Rehab Potential: Good Time/GCodes Start Time: 14:20 Stop Time: 14:32 Total Time Billed (hr/min): 12 Billed Treatment Time 1, visit EX x 1 ( 12 Min ) KVNG SQUIRES Mar 07, 2019 14:38 POS
--- NOTE | 2019-03-07 15:44 | NUR ---
"RD ASSESSMENT PMHx: CAD; GERD; hypercholesterolemia; PT INTERACTION: Pt was awake and pleasant during nutrition assessment for LOS. Pt states current appetite is pretty good, and has been for sometime. Note pt avg PO intake of 100% x2d, per chart review. Pt states no recent issues with n/v/c/d at this time. Note last BM was 03/06 and pt not currently on bowel regimen, per chart review. Pt states no recent wt changes. Note unable to determine recent wt hx, per chart review. ABNORMAL NUTRITION-RELATED LAB VALUES: BUN 21 (H); glu 115 (H) Est. kcal needs: 1015-0951 kcal | 25-30 kcal/kg Est. Pro needs: 77-92 g Pro | 1.0-1.2 g Pro/kg PES STATEMENT: Given pt's PO intake, no nutrition diagnosis at this time (NO-1.1) INTERVENTION: Continue with current diet order of regular diet. MONITOR/EVALUATE: PO Intake; Plan of Care; Hydration Status; Weight Status; Lab Values Kari Powell, MS, RD, LD"
--- NOTE | 2019-03-07 15:48 | Diagnostic Imaging Report ---
PROCEDURE: CT chest with contrast only. TECHNIQUE: Multiple contiguous axial images were obtained through the chest after administration of intravenous contrast. Auto Exposure Controls were utilized during the CT exam to meet ALARA standards for radiation dose reduction. INDICATION: Shortness of breath and right-sided pneumothorax with two chest tubes in place. COMPARISON: Correlation is made with prior CT chest from 03/03/2019. FINDINGS: Thora-Vent chest tube in the upper right chest remains in place. The pigtail chest tube appears to be located within the fissure. There is an anterior right pneumothorax. Subcutaneous gas along the right chest wall is again noted. The spiculated mass in the right lung is unchanged. Left lung appears stable. No significant pleural fluid is seen. There is some trace pleural fluid on the right. Upper abdomen is unremarkable. IMPRESSION: 1. There is a small right anterior pneumothorax. Subcutaneous gas along the right chest wall is stable. There is some minimal infiltrate or atelectasis as well as trace pleural fluid in the right base. 2. Spiculated right lung mass, unchanged. Dictated by: Dictated on workstation # [id number]
[2019-03-07 16:00] VITALS: BP 146/70
[2019-03-07] MEDS: TAMSULOSIN 0.4 MG (FLOMAX) CAP PO SCH (18:26)
--- NOTE | 2019-03-07 18:29 | CONSULTATION REPORT ---
DATE OF SERVICE: 03/07/2019 PHYSICIAN REQUESTING CONSULTATION: Josr Baumann, The patient is admitted to ICU bed 8. IMPRESSION: 1. A 73-year-old male admitted to the hospital following a CT-guided right lung biopsy and pneumothorax. Currently, having chest tube with continued air leak. 2. 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 3. The patient has completed an outpatient PET/CT scan at [facility] and I do not have the results available today to review. 4. Chronic obstructive pulmonary disease/emphysema, severe. RECOMMENDATIONS: 1. Continue management of pneumothorax as you are doing. If the air leak does not heal, he may need thoracic surgical intervention. 2. With regards to the adenocarcinoma of the right upper lobe, the patient has a T2 lesion. If he does not have evidence of metastatic disease, he will be a candidate for potentially curative treatment. He is not a candidate for surgical lobectomy because of severe COPD/emphysema. He may still be a candidate for combined chemoradiation with curative intent. 3. I explained all the treatment options with the patient, his and his brother and answered their questions. 4. The patient indicated that he would prefer to receive the radiation therapy in [place], which is closer to his home. I informed them that medical oncology service is also available in [place] if that is convenient to them. The patient has not made up his decision regarding chemotherapy yet. 5. I will obtain a PET scan report from [facility] as well as the images and reviewed them before making final recommendations. 6. We will follow the patient with you. The patient is a 73-year-old male who saw Dr. Baumann because of worsening shortness of breath and cough. He had an evaluation including CT scan of the chest, which showed a right upper lobe medial lung nodule. He completed a PET/CT scan at [facility] followed by a bronchoscopy, which did not yield a diagnosis. He was then scheduled for a CT-guided biopsy and completed this on 03/01/2019. This resulted in right-sided pneumothorax and the patient was admitted to the hospital with chest tube. Continues to have air leak. The pathology report was available today, which showed adenocarcinoma of the lung. Because of this, a medical oncology consultation was requested. PAST MEDICAL HISTORY: Significant for coronary artery disease with a 2-vessel CABG in 1994. The patient needed a stent placement few years ago. He was diagnosed with COPD/emphysema. No other medical problems. PAST SURGICAL HISTORY: Include CABG in the past, bilateral rotator cuff surgery, left knee arthroscopic surgery. SOCIAL HISTORY: The patient is and lives in [place], [place]. He has one biological daughter and a stepdaughter and a stepson. His biological daughter lives in [place], [place]. Stepdaughter lives next door to him and his stepson lives in [place]. He gives more than [id number] history of tobacco use and was smoking until his hospitalization. Uses alcohol socially and denied any recreational drug use. 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 He gives some history of exposure to asbestos during that time. After his fdc from the [employer], he worked as a building admin for a long time and for a few years worked at [employer] locally. He retired three years ago. FAMILY HISTORY: Unremarkable for any major medical problems other than coronary artery disease. PHYSICAL EXAMINATION: GENERAL: Today showed an elderly male, well developed, well nourished, awake and oriented, anxious, but in no acute distress. VITAL SIGNS: His temperature was 37.1 degrees centigrade, pulse rate of 106, respirations 26, blood pressure 146/70 with oxygen saturation of 94% on 3 liters of oxygen by nasal cannula. HEENT: Normocephalic with male pattern baldness, extraocular muscles intact, conjunctivae pink, oral mucosa moist. NECK: Supple, with no JVD. No cervical, supraclavicular or axillary lymphadenopathy palpable. CHEST: Symmetrical. LUNGS: With diminished breath sounds on the left side and absent to significantly decreased sounds on the right side. Right-sided chest tube present connected to a water seal. CARDIOVASCULAR: Regular in rate and rhythm with borderline tachycardia, no murmurs or gallops heard. ABDOMEN: Soft, nontender with no hepatosplenomegaly or other masses palpable. EXTREMITIES: Showed no edema. NEUROLOGIC: Grossly intact without focal motor deficits. LABORATORY DATA: CBC today showed WBC 8.8, hemoglobin 13.3, MCV 90, platelet count 202,000 with neutrophil count 7.7, lymphocyte count 0.6 and monocyte count 0.5. BMP showed normal electrolytes. BUN was 21 and creatinine 0.79 with GFR more than 60 mL per minute. Nonfasting glucose was 115. The patient had a CT scan of the chest completed earlier today, which showed a Thora-Vent chest tube in the right upper chest. Pigtail chest tube located within the fissure. The anterior right pneumothorax was seen. Subcutaneous gas along the right chest wall is again noted. Spiculated mass in the right lung is unchanged. Trace pleural fluid on the right. Upper abdomen unremarkable. The right lung mass measured [address] scan. Pathology report from needle biopsies of the right upper lobe lung mass showed a moderately differentiated pulmonary adenocarcinoma, predominantly solid and acinar patterns. IHC panel showed the tumor cells positive for Napsin A and TTF-1 and negative for p40 and CK5/6. Thank you for allowing me to participate in this patient's care. I will follow the patient with you and make appropriate recommendations. Job ID: [id number] DocumentID: [id number] Dictated Date: 03/07/2019 17:19:42 Craft Superintendent Date: 03/07/2019 18:28:33 Dictated By: RAHEL CLEARY MD MTDD
[2019-03-07 20:00] VITALS: BP 159/84
[2019-03-07 22:10] VITALS: BP 142/72
[2019-03-08] VITALS: BP 139/78
[2019-03-08] MEDS: SIMvastatin 10 MG (ZOCOR) TAB PO SCH (02:42)
--- NOTE | 2019-03-08 03:44 | Pulmonary Progress Note ---
SHANNAN TONEY A MEDICAL STUDENT 03/08/19 0344: Subjective Date Seen by a Provider: Mar 08, 2019 Time Seen by a Provider: 03:41 Subjective/Events-last exam Pt had CT chest yesterday, showed continued PTX. Air leak in both upper and lower chest tubes. Pt not complaining of any symptoms. Pt states that heme-onc saw him yesterday and discussed path results. Sepsis Event Evaluation Height, Weight, BMI Height: '" Weight: lbs. oz. kg; 23.00 BMI Method: Exam Exam Vital Signs Date Time Temp Pulse Resp B/P (MAP) Pulse Ox O2 Delivery O2 Flow Rate FiO2 03/08/19 01:00 67 03/08/19 00:00 68 16 139/78 (98) Nasal Cannula 3.00 03/07/19 22:10 76 24 142/72 (95) Nasal Cannula 3.00 03/07/19 20:12 Nasal Cannula 3.00 03/07/19 20:00 93 Nasal Cannula 3.00 03/07/19 20:00 37.1 86 19 159/84 (109) 97 Nasal Cannula 3.00 03/07/19 19:00 92 33 Nasal Cannula 3.00 03/07/19 19:00 92 03/07/19 16:00 37.1 94 Nasal Cannula 3.00 03/07/19 16:00 106 26 146/70 (95) Nasal Cannula 3.00 03/07/19 14:38 95 Nasal Cannula 3.00 03/07/19 12:23 100 03/07/19 12:00 97 35 177/88 (117) Nasal Cannula 3.00 03/07/19 12:00 36.8 03/07/19 08:20 93 Nasal Cannula 3.00 03/07/19 08:18 37.1 03/07/19 08:00 85 18 115/64 (81) 96 Nasal Cannula 3.00 03/07/19 07:00 106 03/07/19 06:35 95 Nasal Cannula 3.00 I & O 03/08/19 07:00 Intake Total 650 ml Output Total 1000 ml Balance -350 ml Height & Weight Height: '" Weight: lbs. oz. kg; 23.00 BMI Method: General Appearance: No Apparent Distress, WD/WN HEENT: PERRL/EOMI Neck: Full Range of Motion, Normal Inspection Respiratory: No Accessory Muscle Use, No Respiratory Distress, Decreased Breath Sounds Cardiovascular: Regular Rate, Rhythm, No Murmur, Normal Peripheral Pulses Capillary Refill: Less Than 3 Seconds Peripheral Pulses: 2+ Dorsalis Pedis (R), 2+ Left Dors-Pedis (L), 2+ Radial Pulses (R), 2+ Radial Pulses (L) Gastrointestinal: normal bowel sounds, non tender, soft Extremity: Non Tender, No Calf Tenderness, No Pedal Edema Neurologic/Psychiatric: Alert, Oriented x3, No Motor/Sensory Deficits, Normal Mood/Affect Skin: Normal Color, Warm/Dry Results Lab Laboratory Tests 03/07/19 02:50 Assessment/Plan Assessment/Plan Lung mass s/p CT bx -S/P second chest tube -Cytology results discussed with pt by heme-onc -Persistent Small Air Leak Iatrogenic right right PTX with continuous air leak -S/P 2 chest tubes upper and lower -Will continue to monitor and continue suction. 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 HX of RAMIRO ZAFAR DO 03/08/19 0413: Subjective Subjective/Events-last exam Pt has persistent air leak despite 2 chest tubes. Exam Exam General Appearance: No Apparent Distress, WD/WN HEENT: PERRL/EOMI Neck: Full Range of Motion, Normal Inspection Respiratory: No Respiratory Distress, Decreased Breath Sounds Cardiovascular: Regular Rate, Rhythm, No Murmur, Normal Peripheral Pulses Capillary Refill: Less Than 3 Seconds Gastrointestinal: normal bowel sounds, non tender, soft Extremity: Non Tender, No Calf Tenderness, No Pedal Edema Neurologic/Psychiatric: Alert, Oriented x3, No Motor/Sensory Deficits, Normal Mood/Affect Skin: Normal Color Assessment/Plan Assessment/Plan Lung mass s/p CT bx -S/P second chest tube -Cytology results discussed with pt by heme-onc -Persistent Air Leak - pt needs to be transferred for thoracic surgery Iatrogenic right right PTX with continuous air leak -S/P 2 chest tubes upper and lower -Will continue to monitor and continue suction. 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 HX of SHANNAN CHANCE MEDICAL STUDENT Mar 08, 2019 03:44 RAMIRO TABOR DO Mar 08, 2019 04:13 POS
[2019-03-08 03:54] LABS: BASOPHILS % (AUTO) 0 % (0-10); EOSINOPHILS % (AUTO) 0 % (0-10); HEMATOCRIT 41 % (40-54); HEMOGLOBIN 13.5 G/DL (13.3-17.7); LYMPHOCYTES # (AUTO) 0.6 X 10^3 (1.0-4.0); LYMPHOCYTES % (AUTO) 6 % (12-44); MEAN CORPUSCULAR HEMOGLOBIN 30 PG (25-34); MEAN CORPUSCULAR HGB CONC 33 G/DL (32-36); MEAN CORPUSCULAR VOLUME 89 FL (80-99); MEAN PLATELET VOLUME 9.5 FL (7.4-10.4); MONOCYTES # (AUTO) 0.7 X 10^3 (0.0-1.0); MONOCYTES % (AUTO) 6 % (0-12); NEUTROPHILS % (AUTO) 87 % (42-75); PLATELET COUNT 214 10^3/uL (130-400); WHITE BLOOD COUNT 10.3 10^3/uL (4.3-11.0)
[2019-03-08 04:00] VITALS: BP 164/86
[2019-03-08 04:31] LABS: BUN/CREATININE RATIO 32; CALCIUM 8.3 MG/DL (8.5-10.1); CARBON DIOXIDE 24 MMOL/L (21-32); CHLORIDE 106 MMOL/L (98-107); CREATININE SERUM 0.74 MG/DL (0.60-1.30); GFR ESTIMATED > 60; GLUCOSE 113 MG/DL (70-105); MAGNESIUM 2.5 MG/DL (1.6-2.4); PHOSPHORUS 2.9 MG/DL (2.3-4.7); POTASSIUM 4.3 MMOL/L (3.6-5.0); SODIUM 140 MMOL/L (135-145)
[2019-03-08] MEDS: POTASSIUM CL 10MEQ/50ML IVPB 50 ML IV SCH (06:07)
[2019-03-08] MEDS: MAGNESIUM 1 GM/100 ML IVPB 100 ML IV SCH (06:07)
[2019-03-08] MEDS: KCL 20 MEQ TAB (K-DUR) PO SCH (06:08)
[2019-03-08] MEDS: methylPREDNISolone 40 MG/ML (Solu-MEDROL) VIAL IV SCH ×4 (06:18→23:47)
[2019-03-08] MEDS: PIPERACILLIN/TAZOBACTAM (BULK) 4.5 GM in NS (IVPB) 100 ML IV SCH ×3 (06:18→22:00)
[2019-03-08] MEDS: ENOXAPARIN 40 MG/0.4 ML (LOVENOX) SYR SC SCH (06:21)
--- NOTE | 2019-03-08 07:03 | Diagnostic Imaging Report ---
INDICATION: Shortness of breath. Portable chest 3:03 AM There are postoperative changes from a median sternotomy. There are emphysematous changes in the lungs. There is some consolidation at the right medial lung base with a 3.4 cm masslike lesion in the right lower lung. There is patent thoracostomy tube in the right lower chest. There is another catheter in the right upper chest that may be a thoracostomy tube. There is no appreciable effusion or pneumothorax. IMPRESSION: Right basilar consolidation without significant change from prior study. There is some subcutaneous emphysema in the right chest wall. Dictated by: Dictated on workstation # [id number]
[2019-03-08 08:00] VITALS: BP 135/72
--- NOTE | 2019-03-08 09:55 | Physical Therapy Progress Note ---
Therapy Progress Note PT visit. Pt reports he did not sleep last night and is resting now. Pt is up ad agustin in his room, only needing assist with attachments. Will discharge from PT at this time as he is not in need of skilled therapy services. KVNG FOLEY PT Mar 08, 2019 09:54 POS
--- NOTE | 2019-03-08 11:21 | Progress Note - Hospitalist ---
[facility] 03/08/19 1121: Subjective HPI/CC On Admission Date Seen by Provider: Mar 08, 2019 Time Seen by Provider: 07:20 on the patient underwent fine-needle biopsy of a PET scan positive right sided lung mass. Procedure was complicated by pneumothorax requiring chest tube placement and overnight monitoring. Patient reports pain at chest tube site. Subjective/Events-last exam Pt states he feels the same as the last few days, but his cough has gotten slightly better He reports less production form the cough and more clear colored sputum when productive He states he talked with the oncologist yesterday who told him he has cancer, but they care going to use chemoradiation with the hopes of curative treatment He was aware that there is only about a 40% chance of curative treatment, but thinks that is pretty odds and will proceed He states he plans to have the treatments in [place] He reported that Dr Baumann had talked to him about the persistent air leak form his biopsy site and that he will require surgery to repair the pneumothorax The patient would like to have the surgery done in [place] due to lower cost and distance of travel He would like to be transferred today if possible in order to get things moving along HOSPITAL COURSE: Pt was admitted to ICU after having a lung biopsy that resulted in a pneumothorax. He required an apical chest tube to be placed which reduced the pneumothorax, but only temporarily. He then required a second chest tube placed at the base of the right lung with suction this temporarily relieved the pneumothorax. During his stay he developed a severe cough with significant sputum production that was culture positive for Serratia and he was started on a course of antibiotics. The infection began to clear, but due to the persistent air leak in the right lung he was transferred for thoracic surgery to repair the leak. Review of Systems General: No Chills; Fatigue HEENT: Head Aches (minor); No Visual Changes Pulmonary: No Dyspnea; Cough Cardiovascular: No: Chest Pain, Palpitations, Edema Gastrointestinal: No: Nausea, Vomiting, Abdominal Pain, Diarrhea, Constipation Genitourinary: No Dysuria, No Incontinence Neurological: Weakness; No: Numbness, Confusion Objective Exam Vital Signs Vital Signs Date Time Temp Pulse Resp B/P (MAP) Pulse Ox O2 Delivery O2 Flow Rate FiO2 03/08/19 08:00 89 135/72 (93) Nasal Cannula 3.00 03/08/19 04:00 20 03/08/19 04:00 36.8 03/07/19 20:00 93 Capillary Refill : Less Than 3 Seconds General Appearance: Chronically ill, Mild Distress Respiratory: Lungs Clear, No Accessory Muscle Use, No Respiratory Distress Cardiovascular: Regular Rate, Rhythm, No Edema, No Murmur, Normal Peripheral Pulses Extremity: Non Tender, No Calf Tenderness, No Pedal Edema Neurologic/Psychiatric: Alert, Oriented x3, No Motor/Sensory Deficits, Normal Mood/Affect Skin: Normal Color, Warm/Dry Results/Procedures Lab Laboratory Tests 03/08/19 03:40 Patient resulted labs reviewed. Assessment/Plan Assessment and Plan Assess & Plan/Chief Complaint Assessment: Lung mass (moderately differentiated lung adenocarcinoma) Right pneumothorax post lung biopsy COPD Hx tobacco abuse Urinary retention secondary to BPH Hx of CAD Weakness upon standing Plan: Transfer for thoracic surgery to repair persistent air leak Oncology consultation/referral DVT Prophylaxis DuoNeb treatments QID COPD management Monitor patient blood pressure Clinical Quality Measures DVT/VTE Risk/Contraindication: Risk Factor Score Per Nursin RFS Level Per Nursing on Admit: 4+=Very High BELEN CABRERA DO 03/08/19 1716: Subjective Subjective/Events-last exam Pt awaiting transfer to either [place] or Pneumothorax continues Biopsy showed poorly differentiated cancer Pt denies any pain Review of Systems Pulmonary: Dyspnea, Cough Objective Exam General Appearance: No Apparent Distress, WD/WN, Chronically ill Respiratory: Lungs Clear, Decreased Breath Sounds Assessment/Plan Assessment and Plan Assess & Plan/Chief Complaint Transfer to [facility] Diagnosis/Problems Diagnosis/Problems (1) Lung mass (2) Infection, Serratia (3) Pneumothorax after biopsy (4) Cough (5) COPD (chronic obstructive pulmonary disease) Supervisory-Addendum Brief Verification & Attestation Participated in pt care: history, MDM, physical Personally performed: exam, history, MDM, supervision of care Care discussed with: Medical Student Procedures: n/a Results interpretation: Verified all documentation Verification and Attestation of Medical Student E/M Service A medical student performed and documented this service in my presence. I reviewed and verified all information documented by the medical student and made modifications to such information, when appropriate. I personally performed the physical exam and medical decision making. Belen Cabrera, Mar 08, 2019,17:16 [facility] Mar 08, 2019 11:21 BELEN FERRO 22, 2019 17:16 POS
[2019-03-08] MEDS: RT-ALBUTEROL/IPRATROPIUM 3 ML (DUONEB) VIAL INH SCH ×4 (12:01→19:06)
[2019-03-08] MEDS: RT-ADVAIR HFA 115/21 MCG PER PUFF IH SCH ×2 (12:02→19:06)
--- NOTE | 2019-03-08 14:04 | Occupational Ther Daily Note ---
OT Current Status-Daily Note Subjective Pt alert, sitting in recliner. Pt agrees to therapy. present in room. No c/o pain. Pt and nrsg stated that pt will be discharging tomorrow. Mental Status/Objective Patient Orientation: Person, Place, Time, Situation ADL-Treatment Pt required encouragement to participate with OT. Pt stated that he is getting surgery tomorrow and doesn't need anymore therapy. Encouraged pt demonstrate understanding of HEP and ability to don/doff socks. reported that pt was able to complete own toileting and that pt was able to complete bath with assist due to chest tubes and manipulating tubing. Pt continues to complete HEP without resistance due to chest tube. After therapy, pt sitting in recliner with call light/phone in reach. All needs met in room. Family present in room. Therapy Code Descriptions/Definitions Functional [place] Measure: 0=Not Assessed/NA 4=Minimal Assistance 1=Total Assistance 5=Supervision or Setup 2=Maximal Assistance 6=Modified [place] 3=Moderate Assistance 7=Complete IndependenceSCALE: Activities may be completed with or without assistive devices. 2-Zrcgjkijqv-qhdpelt completes the activity by him/herself with no assistance from a helper. 5-Set-up or Clean-up Assistance-helper sets up or cleans up; patient completes activity. [place] assists only prior to or following the activity. 4-Supervision or Touching Assistance-helper provides verbal cues and/or touching/steadying and/or contact guard assistance as patient completes activity. Assistance may be provided throughout the activity or intermittently. 3-Partial/Moderate Assistance-helper does LESS THAN HALF the effort. [place] lifts, holds or supports trunk or limbs, but provides less than half the effort. 2-Substantial/Maximal Assistance-helper does MORE THAN HALF the effort. [place] lifts or holds trunk or limbs and provides more than half the effort. 8-Elkzsnkci-lzmsjl does ALL the effort. Patient does none of the effort to complete the activity. Or, the assistance of 2 or more helpers is required for the patient to complete the activity. If activity was not attempted, code reason: 7-Patient Refused. 9-Not Applicable-not attempted and the patient did not perform the activity before the current illness, exacerbation or injury. 10-Not Attempted due to Environmental Limitations-(lack of equipment, weather restraints, etc.). 88-Not Attempted due to Medical Conditions or Safety Concerns. OT Heat And Frost Insulator Goals Snf Goals Time Frame: Mar 07, 2019 Eating (QC): 6 Oral Hygiene (QC): 6 Toileting Hygiene (QC): 6 Shower/Bathe Self (QC): 5 Upper Body Dressing (QC): 6 Lower Body Dressing (QC): 6 On/Off Footwear (QC): 6 Above goals have been demonstrated, or will be demonstrated/reported as met at next session. Pt.'s main OT focus will be to establish HEP for continued strength. Additional Goals: 1-Demonstrate ADL Tasks, 2-Verbalize Understanding, 3- ImproveStrength/Mariah 1=Demonstrate adherence to instructed precautions during ADL tasks. 2=Patient will verbalize/demonstrate understanding of assistive devices/modifications for ADL. 3=Patient will improve strength/tolerance for activity to enable patient to perform ADL's. OT Education/Plan Problem List/Assessment Assessment: Decreased Activ Tolerance, Decreased UE Strength Discharge Recommendations Plan/Recommendations: Continue POC Treatment Plan/Plan of Care Patient would benefit from OT for education, treatment and training to promote independence in ADL's, mobility, safety and/or upper extremity function for ADL's. Plan of Care: UE Funct Exercise/Act Treatment Duration: Mar 07, 2019 Frequency: 1 time per week Estimated Hrs Per Day: .25 hour per day Agreement: Yes Rehab Potential: Good Time/GCodes Start Time: 13:30 Stop Time: 13:40 Total Time Billed (hr/min): 10 Billed Treatment Time 1 visit-EX 1 (10 min) KVNG SQUIRES Mar 08, 2019 14:04 POS
[2019-03-08] MEDS: TAMSULOSIN 0.4 MG (FLOMAX) CAP PO SCH (18:05)
[2019-03-08 20:00] VITALS: BP 144/74
[2019-03-09 00:24] VITALS: BP 130/66
[2019-03-09] MEDS: SIMvastatin 10 MG (ZOCOR) TAB PO SCH ×2 (00:29→23:55)
[2019-03-09 03:38] LABS: BASOPHILS % (AUTO) 0 % (0-10); EOSINOPHILS % (AUTO) 0 % (0-10); HEMATOCRIT 40 % (40-54); HEMOGLOBIN 13.1 G/DL (13.3-17.7); LYMPHOCYTES # (AUTO) 0.6 X 10^3 (1.0-4.0); LYMPHOCYTES % (AUTO) 6 % (12-44); MEAN CORPUSCULAR HEMOGLOBIN 30 PG (25-34); MEAN CORPUSCULAR HGB CONC 33 G/DL (32-36); MEAN CORPUSCULAR VOLUME 90 FL (80-99); MEAN PLATELET VOLUME 9.7 FL (7.4-10.4); MONOCYTES # (AUTO) 0.6 X 10^3 (0.0-1.0); MONOCYTES % (AUTO) 5 % (0-12); NEUTROPHILS # (AUTO) 9.9 X 10^3 (1.8-7.8); NEUTROPHILS % (AUTO) 89 % (42-75); PLATELET COUNT 193 10^3/uL (130-400); RED CELL DISTRIBUTION WIDTH 14.8 % (10.0-14.5); WHITE BLOOD COUNT 11.1 10^3/uL (4.3-11.0)
[2019-03-09 03:53] LABS: BUN/CREATININE RATIO 30; CALCIUM 8.2 MG/DL (8.5-10.1); CARBON DIOXIDE 24 MMOL/L (21-32); CHLORIDE 105 MMOL/L (98-107); CREATININE SERUM 0.69 MG/DL (0.60-1.30); GFR ESTIMATED > 60; GLUCOSE 108 MG/DL (70-105); MAGNESIUM 2.4 MG/DL (1.6-2.4); PHOSPHORUS 3.1 MG/DL (2.3-4.7); POTASSIUM 4.3 MMOL/L (3.6-5.0); SODIUM 139 MMOL/L (135-145)
[2019-03-09 04:00] VITALS: BP 149/85
--- NOTE | 2019-03-09 05:34 | Pulmonary Progress Note ---
Subjective Time Seen by a Provider: 05:32 Subjective/Events-last exam PT does not appear to have airleak in CT tube system now. Sepsis Event Evaluation Height, Weight, BMI Height: '" Weight: lbs. oz. kg; 23.00 BMI Method: Exam Exam Vital Signs Date Time Temp Pulse Resp B/P (MAP) Pulse Ox O2 Delivery O2 Flow Rate FiO2 03/09/19 04:00 90 16 149/85 (106) Nasal Cannula 3.00 03/09/19 04:00 37.1 03/09/19 01:00 80 03/09/19 00:24 70 28 130/66 (87) Nasal Cannula 3.00 03/08/19 23:59 36.7 03/08/19 20:00 93 Nasal Cannula 3.00 03/08/19 20:00 81 15 144/74 (97) Nasal Cannula 3.00 03/08/19 20:00 36.8 03/08/19 19:06 93 Nasal Cannula 3.00 03/08/19 19:00 80 03/08/19 16:00 37.3 03/08/19 15:08 95 Nasal Cannula 3.00 03/08/19 12:02 95 Nasal Cannula 3.00 03/08/19 08:00 89 135/72 (93) Nasal Cannula 3.00 03/08/19 08:00 93 Nasal Cannula 3.00 03/08/19 07:00 81 I & O 03/09/19 07:00 Intake Total 1800 ml Output Total 200 ml Balance 1600 ml Height & Weight Height: '" Weight: lbs. oz. kg; 23.00 BMI Method: General Appearance: No Apparent Distress, WD/WN, Chronically ill HEENT: PERRL/EOMI Neck: Full Range of Motion, Normal Inspection Respiratory: Lungs Clear, Decreased Breath Sounds Cardiovascular: Regular Rate, Rhythm, No Edema, No Murmur, Normal Peripheral Pulses Capillary Refill: Less Than 3 Seconds Peripheral Pulses: 2+ Dorsalis Pedis (R), 2+ Left Dors-Pedis (L), 2+ Radial Pulses (R), 2+ Radial Pulses (L) Gastrointestinal: normal bowel sounds, non tender, soft Extremity: Non Tender, No Calf Tenderness, No Pedal Edema Neurologic/Psychiatric: Alert, Oriented x3, No Motor/Sensory Deficits, Normal Mood/Affect Skin: Normal Color, Warm/Dry Results Lab Laboratory Tests 11/22/19 03:40 03/09/19 03:17 Assessment/Plan Assessment/Plan Lung mass s/p CT bx -S/P second chest tube -Cytology is positive for adenocarcinoma -PT does not appear to have airleak in CT tube system now. will hold on transfer today. Iatrogenic right right PTX with continuous air leak -S/P 2 chest tubes upper and lower -Will continue to monitor and continue suction. 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 Hx CAD last stent was 6yrs ago -Plavix - on hold secondary to pending surgery. COPDAE -Pt will probably need home 02 -Duoneb Q 4 and Advair -solumedrol 40 IV Q 6 -Oxygen -- PT does not have home 02 Strong nonproductive cough -SVNS -Solumedrol Iatrogenic right PTX s/p chest tube -CT 03/07 showed a small right anterior pneumothorax -Continue oxygen -will continue to monitor Urinary retention secondary to BPH -S/p Hoyt catheter -Flomax DVT Prophylaxis -Lovenox Sub Q daily. HX of RAMIRO ZAFAR DO Mar 09, 2019 05:34 POS
[2019-03-09] MEDS: methylPREDNISolone 40 MG/ML (Solu-MEDROL) VIAL IV SCH ×4 (05:47→23:50)
[2019-03-09] MEDS: PIPERACILLIN/TAZOBACTAM (BULK) 4.5 GM in NS (IVPB) 100 ML IV SCH (05:47)
[2019-03-09] MEDS: POTASSIUM CL 10MEQ/50ML IVPB 50 ML IV SCH (05:57)
[2019-03-09] MEDS: MAGNESIUM 1 GM/100 ML IVPB 100 ML IV SCH (05:58)
[2019-03-09] MEDS: KCL 20 MEQ TAB (K-DUR) PO SCH (05:59)
[2019-03-09] MEDS: ENOXAPARIN 40 MG/0.4 ML (LOVENOX) SYR SC SCH (06:06)
[2019-03-09 06:22] LABS: NEUTROPHILS % (MANUAL) 88 %
[2019-03-09 06:23] LABS: LYMPHOCYTES % (MANUAL) 6 %; MONOCYTES % (MANUAL) 6 %
[2019-03-09] MEDS: RT-ALBUTEROL/IPRATROPIUM 3 ML (DUONEB) VIAL INH SCH ×4 (06:38→18:34)
[2019-03-09] MEDS: RT-ADVAIR HFA 115/21 MCG PER PUFF IH SCH ×2 (06:39→18:34)
[2019-03-09] MEDS: cefTRIAXone FOR IV USE 1,000 MG in WATER (STERILE) FOR INJECTION 10 ML IV SCH (06:48)
[2019-03-09 08:00] VITALS: BP 145/73
--- NOTE | 2019-03-09 08:25 | Diagnostic Imaging Report ---
INDICATION: Pulmonary density. FINDINGS: A right chest tube remains. Subcutaneous emphysema unchanged. Nodular opacity projecting over the lower 3rd of the right lung unchanged. There is background COPD. IMPRESSION: No visualized pneumothorax. Persistent subcutaneous emphysema, right lung nodule and support apparatus. Dictated by: Dictated on workstation # [id number]
[2019-03-09 12:00] VITALS: BP 150/69
[2019-03-09 16:00] VITALS: BP 133/82
--- NOTE | 2019-03-09 16:19 | NUR ---
1535 DUE TO CHANGES IN STAFFING CARE OF PT TO THIS RN. REPORT RECEIVED FROM Katherine QUILES RN. PT SITTING UP IN CHAIR WATCHING TELEVISION, CALL LIGHT AND OTHER PERSONAL ITEMS WITHIN REACH PT VOICES NO C/O OF PAIN OR NEEDS AT THIS TIME, WILL CONTINUE TO MONITOR.
[2019-03-09] MEDS: TAMSULOSIN 0.4 MG (FLOMAX) CAP PO SCH (17:22)
[2019-03-09 20:00] VITALS: BP 141/76
[2019-03-10] VITALS: BP 159/80
[2019-03-10 03:25] LABS: BASOPHILS % (AUTO) 0 % (0-10); EOSINOPHILS % (AUTO) 0 % (0-10); HEMATOCRIT 40 % (40-54); HEMOGLOBIN 13.1 G/DL (13.3-17.7); LYMPHOCYTES # (AUTO) 0.6 X 10^3 (1.0-4.0); LYMPHOCYTES % (AUTO) 5 % (12-44); MEAN CORPUSCULAR HEMOGLOBIN 30 PG (25-34); MEAN CORPUSCULAR HGB CONC 33 G/DL (32-36); MEAN CORPUSCULAR VOLUME 91 FL (80-99); MEAN PLATELET VOLUME 9.7 FL (7.4-10.4); MONOCYTES # (AUTO) 0.6 X 10^3 (0.0-1.0); MONOCYTES % (AUTO) 5 % (0-12); NEUTROPHILS # (AUTO) 11.1 X 10^3 (1.8-7.8); NEUTROPHILS % (AUTO) 90 % (42-75); PLATELET COUNT 200 10^3/uL (130-400); WHITE BLOOD COUNT 12.2 10^3/uL (4.3-11.0)
[2019-03-10 03:40] LABS: BUN/CREATININE RATIO 36; CALCIUM 8.4 MG/DL (8.5-10.1); CARBON DIOXIDE 27 MMOL/L (21-32); CHLORIDE 107 MMOL/L (98-107); CREATININE SERUM 0.76 MG/DL (0.60-1.30); GFR ESTIMATED > 60; GLUCOSE 132 MG/DL (70-105); MAGNESIUM 2.4 MG/DL (1.6-2.4); PHOSPHORUS 2.6 MG/DL (2.3-4.7); POTASSIUM 4.2 MMOL/L (3.6-5.0); SODIUM 142 MMOL/L (135-145)
[2019-03-10 04:00] VITALS: BP 138/73
--- NOTE | 2019-03-10 05:18 | Pulmonary Progress Note ---
Subjective Time Seen by a Provider: 05:17 Subjective/Events-last exam Pt states he feels better. Sepsis Event Evaluation Height, Weight, BMI Height: '" Weight: lbs. oz. kg; 23.00 BMI Method: Exam Exam Vital Signs Date Time Temp Pulse Resp B/P (MAP) Pulse Ox O2 Delivery O2 Flow Rate FiO2 03/10/19 04:00 37.1 03/10/19 01:00 80 03/10/19 00:00 85 18 159/80 (106) Nasal Cannula 3.00 03/09/19 20:00 93 Nasal Cannula 3.00 03/09/19 20:00 37.3 79 20 141/76 (97) 94 Nasal Cannula 3.00 03/09/19 19:00 93 03/09/19 18:34 94 Nasal Cannula 3.00 03/09/19 16:00 37.3 99 21 133/82 (99) 93 Nasal Cannula 3.00 03/09/19 15:06 95 Nasal Cannula 3.00 03/09/19 13:00 91 03/09/19 12:00 37.4 111 17 150/69 (96) 92 Nasal Cannula 3.00 03/09/19 10:45 93 Nasal Cannula 3.00 03/09/19 08:00 93 Nasal Cannula 3.00 03/09/19 08:00 78 22 145/73 (97) Nasal Cannula 3.00 03/09/19 07:00 71 03/09/19 06:39 Nasal Cannula 3.00 03/09/19 06:39 93 Nasal Cannula 3.00 I & O 03/10/19 06:59 Intake Total 1670 ml Output Total 275 ml Balance 1395 ml Height & Weight Height: '" Weight: lbs. oz. kg; 23.00 BMI Method: General Appearance: No Apparent Distress, WD/WN, Chronically ill HEENT: PERRL/EOMI Neck: Full Range of Motion, Normal Inspection Respiratory: Lungs Clear, Decreased Breath Sounds Cardiovascular: Regular Rate, Rhythm, No Edema, No Murmur, Normal Peripheral Pulses Capillary Refill: Less Than 3 Seconds Peripheral Pulses: 2+ Dorsalis Pedis (R), 2+ Left Dors-Pedis (L), 2+ Radial Pulses (R), 2+ Radial Pulses (L) Gastrointestinal: normal bowel sounds, non tender, soft Extremity: Non Tender, No Calf Tenderness, No Pedal Edema Neurologic/Psychiatric: Alert, Oriented x3, No Motor/Sensory Deficits, Normal Mood/Affect Skin: Normal Color, Warm/Dry Results Lab Laboratory Tests 03/09/19 03:17 03/10/19 03:08 Assessment/Plan Assessment/Plan Lung mass s/p CT bx -S/P second chest tube -Cytology is positive for adenocarcinoma -Yesterday there did not appear to be any airleak in chest tube system. Today there is a very small leak. -Repeat CT scan today. If PTX doesn't resolve by tomorrow will transfer tomorrow morning for thoracic surgery Iatrogenic right right PTX with continuous air leak -S/P 2 chest tubes upper and lower -Will continue to monitor and continue suction. 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 Hx CAD last stent was 6yrs ago -Plavix - on hold secondary to pending surgery. COPDAE -Pt will probably need home 02 -Duoneb Q 4 and Advair -solumedrol 40 IV Q 6 -Oxygen -- PT does not have home 02 Strong nonproductive cough -SVNS -Solumedrol Iatrogenic right PTX s/p chest tube -CT 03/07 showed a small right anterior pneumothorax -Continue oxygen -will continue to monitor Urinary retention secondary to BPH -S/p Hoyt catheter -Flomax DVT Prophylaxis -Lovenox Sub Q daily. HX of CAD RAMIRO TAO DO Mar 10, 2019 05:17 POS
[2019-03-10] MEDS: MAGNESIUM 1 GM/100 ML IVPB 100 ML IV SCH (06:10)
[2019-03-10] MEDS: cefTRIAXone FOR IV USE 1,000 MG in WATER (STERILE) FOR INJECTION 10 ML IV SCH (06:10)
[2019-03-10] MEDS: POTASSIUM CL 10MEQ/50ML IVPB 50 ML IV SCH (06:10)
[2019-03-10] MEDS: methylPREDNISolone 40 MG/ML (Solu-MEDROL) VIAL IV SCH ×3 (06:15→17:08)
[2019-03-10] MEDS: KCL 20 MEQ TAB (K-DUR) PO SCH (06:16)
[2019-03-10] MEDS: ENOXAPARIN 40 MG/0.4 ML (LOVENOX) SYR SC SCH (06:18)
[2019-03-10] MEDS: RT-ADVAIR HFA 115/21 MCG PER PUFF IH SCH ×2 (07:37→21:27)
[2019-03-10] MEDS: RT-ALBUTEROL/IPRATROPIUM 3 ML (DUONEB) VIAL INH SCH ×4 (07:37→21:27)
[2019-03-10 08:00] VITALS: BP 146/89
[2019-03-10 12:00] VITALS: BP 154/69
--- NOTE | 2019-03-10 12:23 | NUR ---
DR CABRERA NOTIFIED OF PT'S SORE THROAT AND WHITE SPOTS IN THE BACK OF THROAT, NEW ORDERS RECEIVED SEE ORDER HX.
[2019-03-10] MEDS: NYSTATIN ORAL SUSP 5 ML UDC PO SCH ×2 (12:36→17:08)
--- NOTE | 2019-03-10 13:12 | Progress Note - Hospitalist ---
Subjective HPI/CC On Admission Date Seen by Provider: Mar 10, 2019 Time Seen by Provider: 12:00 on the patient underwent fine-needle biopsy of a PET scan positive right sided lung mass. Procedure was complicated by pneumothorax requiring chest tube placement and overnight monitoring. Patient reports pain at chest tube site. Subjective/Events-last exam Potential for CT removal CT scan has been ordered Patient feels better and breathing better Review of Systems Pulmonary: Dyspnea, Cough Objective Exam Vital Signs Vital Signs Date Time Temp Pulse Resp B/P (MAP) Pulse Ox O2 Delivery O2 Flow Rate FiO2 03/10/19 15:23 90 Nasal Cannula 3.00 03/10/19 13:00 106 03/10/19 12:00 37.2 17 154/69 (97) Capillary Refill : Less Than 3 Seconds General Appearance: No Apparent Distress, WD/WN, Chronically ill Respiratory: Lungs Clear, Decreased Breath Sounds Cardiovascular: Regular Rate, Rhythm Neurologic/Psychiatric: Alert, Oriented x3, No Motor/Sensory Deficits, Normal Mood/Affect Results/Procedures Lab Laboratory Tests 03/10/19 03:08 Patient resulted labs reviewed. Assessment/Plan Assessment and Plan Assess & Plan/Chief Complaint Assessment: PTX right requiring 2 chest tubes COPD severe AECOPD Bronchitis Smoker Lung mass biopsy + for cancer Plan: PTX management Diagnosis/Problems Diagnosis/Problems (1) Lung mass (2) Infection, Serratia (3) Pneumothorax after biopsy (4) Cough (5) COPD (chronic obstructive pulmonary disease) Clinical Quality Measures DVT/VTE Risk/Contraindication: Risk Factor Score Per Nursin RFS Level Per Nursing on Admit: 4+=Very High RODRICK CABRERA DO Mar 10, 2019 13:12 POS
--- NOTE | 2019-03-10 13:56 | NUR ---
PT REQUESTING TUMS FOR INDIGESTION, DR CABRERA NOTIFIED NEW ORDER RECEIVED.
[2019-03-10] MEDS ORDERED: CALCIUM CARBONATE 500 MG (TUMS) TAB.CHEW PO PRN (14:00)
--- NOTE | 2019-03-10 14:03 | Diagnostic Imaging Report ---
PROCEDURE: CT chest without contrast. TECHNIQUE: Multiple contiguous axial images were obtained through the chest without the use of intravenous contrast. Auto Exposure Controls were utilized during the CT exam to meet ALARA standards for radiation dose reduction. INDICATION: Follow-up of pneumothorax. COMPARISON: Comparison made with a chest radiograph from 03/10/[address] of the chest 03/07/2019. FINDINGS: There is a small caliber chest tube which has been placed anteriorly within the upper right chest. There is also a looped pigtail catheter in the pleural space inferiorly that was placed from a basilar lateral approach. Residual pneumothorax anteriorly at the right lung base remains present but has decreased in size compared to the prior exam. There is trace right base pleural fluid. The left lung is clear. There is no left pneumothorax. Subcutaneous edema throughout the chest wall remains present and not significantly changed from the previous studies. There are atherosclerotic calcifications within the aorta. Coronary calcifications are present. There has been previous sternotomy. The upper abdomen demonstrates no acute process. There is no acute or suspicious osseous abnormality. IMPRESSION: 1. Right-sided pneumothorax remains present though has decreased in size compared to prior examination from 03/07/2019. There is a basilar pigtail catheter and a small bore chest tube anteriorly at the right lung apex. There is persistent subcutaneous emphysema throughout the right chest and abdominal wall which is not significantly changed. There is minimal right base pleural fluid. 2. Left lung remains clear without pneumothorax. The patient's right middle lobe mass is unchanged. There is minimal discoid atelectasis present within the right lung base. Trace pneumothorax is evident posteromedially. Dictated by: Dictated on workstation # [id number]
--- NOTE | 2019-03-10 14:08 | Diagnostic Imaging Report ---
Indication: Shortness of breath Findings: There is chest drains present on the right. There is subcutaneous emphysema along the right chest tracking into the right greater than left neck. No radiographically appreciable pneumothorax or pleural separation. A masslike density in the right lower chest unchanged. There has however been some increased infiltrate or atelectasis in the infrahilar right lower lobe. IMPRESSION: Increased pulmonary infiltrate or atelectasis on the right adjacent to a known mass. Subcutaneous emphysema .stable Dictated by: Dictated on workstation # [id number]
[2019-03-10 16:00] VITALS: BP 153/74
[2019-03-10] MEDS: TAMSULOSIN 0.4 MG (FLOMAX) CAP PO SCH (17:08)
[2019-03-10 20:00] VITALS: BP 136/61
[2019-03-11] VITALS: BP 151/84
[2019-03-11] MEDS: methylPREDNISolone 40 MG/ML (Solu-MEDROL) VIAL IV SCH ×5 (00:25→23:40)
[2019-03-11] MEDS: SIMvastatin 10 MG (ZOCOR) TAB PO SCH ×2 (00:25→23:40)
[2019-03-11] MEDS: NYSTATIN ORAL SUSP 5 ML UDC PO SCH ×5 (00:25→23:40)
[2019-03-11 03:29] LABS: BASOPHILS % (AUTO) 0 % (0-10); EOSINOPHILS % (AUTO) 0 % (0-10); HEMATOCRIT 41 % (40-54); HEMOGLOBIN 13.6 G/DL (13.3-17.7); LYMPHOCYTES # (AUTO) 0.7 X 10^3 (1.0-4.0); LYMPHOCYTES % (AUTO) 5 % (12-44); MEAN CORPUSCULAR HEMOGLOBIN 30 PG (25-34); MEAN CORPUSCULAR HGB CONC 33 G/DL (32-36); MEAN CORPUSCULAR VOLUME 90 FL (80-99); MEAN PLATELET VOLUME 9.9 FL (7.4-10.4); MONOCYTES # (AUTO) 0.9 X 10^3 (0.0-1.0); MONOCYTES % (AUTO) 6 % (0-12); NEUTROPHILS # (AUTO) 12.4 X 10^3 (1.8-7.8); NEUTROPHILS % (AUTO) 89 % (42-75); PLATELET COUNT 206 10^3/uL (130-400); RED CELL DISTRIBUTION WIDTH 14.9 % (10.0-14.5)
[2019-03-11 03:53] LABS: BUN/CREATININE RATIO 26; CALCIUM 8.3 MG/DL (8.5-10.1); CARBON DIOXIDE 26 MMOL/L (21-32); CHLORIDE 103 MMOL/L (98-107); GFR ESTIMATED > 60; GLUCOSE 118 MG/DL (70-105); MAGNESIUM 2.5 MG/DL (1.6-2.4); PHOSPHORUS 3.1 MG/DL (2.3-4.7); POTASSIUM 4.1 MMOL/L (3.6-5.0); SODIUM 139 MMOL/L (135-145)
[2019-03-11 04:00] VITALS: BP 137/81
[2019-03-11] MEDS: MAGNESIUM 1 GM/100 ML IVPB 100 ML IV SCH (04:12)
[2019-03-11] MEDS: POTASSIUM CL 10MEQ/50ML IVPB 50 ML IV SCH (04:12)
[2019-03-11] MEDS: KCL 20 MEQ TAB (K-DUR) PO SCH (04:13)
[2019-03-11] MEDS: guaiFENesin/CODEINE (ROBITUSSIN AC) 10ML UDC PO PRN ×2 (06:21→19:42)
[2019-03-11] MEDS: ENOXAPARIN 40 MG/0.4 ML (LOVENOX) SYR SC SCH (06:21)
[2019-03-11] MEDS: cefTRIAXone FOR IV USE 1,000 MG in WATER (STERILE) FOR INJECTION 10 ML IV SCH (06:24)
--- NOTE | 2019-03-11 07:46 | Diagnostic Imaging Report ---
CHEST 1 VIEW, AP/PA ONLY INDICATION: Pleural effusion, shortness of breath. COMPARISON: 03/10/2019. FINDINGS: Pigtail pleural catheter on the right is unchanged. Additional small-bore chest tube in the upper right hemithorax is unchanged. No appreciable pneumothorax on today's examination. No pleural effusion. Nodular opacity in the right lung base is unchanged. Stable cardiomediastinal silhouette. IMPRESSION: 1. No appreciable pneumothorax. Stable chest tubes. 3. Stable right-sided lung mass. Dictated by: Dictated on workstation # [id number]
[2019-03-11 08:00] VITALS: BP 120/66
--- NOTE | 2019-03-11 08:00 | Pulmonary Progress Note ---
Subjective Time Seen by a Provider: 07:59 Subjective/Events-last exam PT is sitting up in chair. He states he feels improved. Sepsis Event Evaluation Height, Weight, BMI Height: '" Weight: lbs. oz. kg; 23.00 BMI Method: Exam Exam Vital Signs Date Time Temp Pulse Resp B/P (MAP) Pulse Ox O2 Delivery O2 Flow Rate FiO2 03/11/19 04:00 71 16 137/81 (99) 99 Nasal Cannula 3.00 03/11/19 01:00 85 03/11/19 00:00 36.6 77 18 151/84 (106) 95 Nasal Cannula 3.00 03/10/19 21:27 Nasal Cannula 3.00 03/10/19 20:00 Nasal Cannula 3.00 03/10/19 20:00 36.9 85 19 136/61 (86) 96 Nasal Cannula 3.00 03/10/19 19:00 100 03/10/19 16:00 37.0 89 15 153/74 (100) 95 Nasal Cannula 3.00 03/10/19 15:23 90 Nasal Cannula 3.00 03/10/19 13:00 106 03/10/19 12:00 37.2 97 17 154/69 (97) 96 Nasal Cannula 3.00 03/10/19 10:48 93 Nasal Cannula 3.00 03/10/19 08:30 93 Nasal Cannula 3.00 03/10/19 08:00 98 33 146/89 (108) Nasal Cannula 3.00 I & O 03/11/19 07:00 Intake Total 900 ml Output Total 1750 ml Balance -850 ml Height & Weight Height: '" Weight: lbs. oz. kg; 23.00 BMI Method: General Appearance: No Apparent Distress, WD/WN, Chronically ill HEENT: PERRL/EOMI Neck: Full Range of Motion, Normal Inspection Respiratory: Lungs Clear, Decreased Breath Sounds Cardiovascular: Regular Rate, Rhythm, No Edema, No Murmur, Normal Peripheral Pulses Capillary Refill: Less Than 3 Seconds Peripheral Pulses: 2+ Dorsalis Pedis (R), 2+ Left Dors-Pedis (L), 2+ Radial Pulses (R), 2+ Radial Pulses (L) Gastrointestinal: normal bowel sounds, non tender, soft Extremity: Non Tender, No Calf Tenderness, No Pedal Edema Neurologic/Psychiatric: Alert, Oriented x3, No Motor/Sensory Deficits, Normal Mood/Affect Skin: Normal Color, Warm/Dry Results Lab Laboratory Tests 03/10/19 03:08 03/11/19 02:55 Assessment/Plan Assessment/Plan Lung mass s/p CT bx -S/P second chest tube -Cytology is positive for adenocarcinoma -Repeat CT scan shows much improvement. Currently no airleak in chest tube system. -Water seal to lower chest tube and disconnect suction from upper chest tube. -Repeat CXR in 4 hours if still looks good and still no air leak will clamp lower chest tube and repeat CXR in 4 hours. Iatrogenic right right PTX with continuous air leak -S/P 2 chest tubes upper and lower -Will continue to monitor and continue suction. 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 -Continue solumedrol -Last PFT was 02/02 showed severe COPD/emphysema with DLCO 39, FEV1 40 -Sputum culture grew out Serratia, -rocephin based on micro. Hx CAD last stent was 6yrs ago -Plavix - on hold secondary to pending surgery. COPDAE -Pt will probably need home 02 -Duoneb Q 4 and Advair -solumedrol 40 IV Q 6 -Oxygen -- PT does not have home 02 Strong nonproductive cough -SVNS -Solumedrol Iatrogenic right PTX s/p chest tube -CT 03/07 showed a small right anterior pneumothorax -Continue oxygen -will continue to monitor Urinary retention secondary to BPH -S/p Hoyt catheter -Flomax DVT Prophylaxis -Lovenox Sub Q daily. HX of CAD RAMIRO TAO DO Mar 11, 2019 08:00 POS
[2019-03-11] MEDS: RT-ADVAIR HFA 115/21 MCG PER PUFF IH SCH ×2 (08:09→18:21)
[2019-03-11] MEDS: RT-ALBUTEROL/IPRATROPIUM 3 ML (DUONEB) VIAL INH SCH ×4 (08:09→18:21)
--- NOTE | 2019-03-11 09:17 | NUR ---
DISCHARGE PLANNING: This RN to patient room to discuss discharge planning. He ready to "get the H__ out of here". Apparently some time over the weekend his air leak stopped so that he did not transfer to tertiary care center up now he has 1 tube clamped and waiting to clamp the 2nd one. We discussed needs at discharge. He will likely need new Oxygen order and is not excited about this. He complains of the canula bothering his nostrils and he doesn't want the cost associated with it. He is however will to have it in the home available for if he needs it. Will offer choices once his is here, hopefully this will be today.
--- NOTE | 2019-03-11 09:37 | Progress Note - Hospitalist ---
Subjective HPI/CC On Admission Date Seen by Provider: Mar 11, 2019 Time Seen by Provider: 09:00 on the patient underwent fine-needle biopsy of a PET scan positive right sided lung mass. Procedure was complicated by pneumothorax requiring chest tube placement and overnight monitoring. Patient reports pain at chest tube site. Subjective/Events-last exam Pt appears to have pneumothorax resolving Likely will have chest tubes removed Denies any significant pain Overall feels much better and breathing better Review of Systems General: Fatigue Objective Exam Vital Signs Vital Signs Date Time Temp Pulse Resp B/P (MAP) Pulse Ox O2 Delivery O2 Flow Rate FiO2 03/11/19 19:00 36.8 95 18 133/62 (85) 96 Nasal Cannula 3.00 Capillary Refill : Less Than 3 Seconds General Appearance: No Apparent Distress, WD/WN Respiratory: Chest Non Tender, Lungs Clear, Normal Breath Sounds, No Accessory Muscle Use, No Respiratory Distress Cardiovascular: Regular Rate, Rhythm, No Edema, No Gallop, No JVD, No Murmur, Normal Peripheral Pulses Neurologic/Psychiatric: Alert, Oriented x3, No Motor/Sensory Deficits, Normal Mood/Affect Results/Procedures Lab Laboratory Tests 03/11/19 02:55 Patient resulted labs reviewed. Assessment/Plan Assessment and Plan Assess & Plan/Chief Complaint Assessment: PTX right requiring 2 chest tubes COPD severe AECOPD Bronchitis Smoker Lung mass biopsy + for cancer Plan: PTX management Diagnosis/Problems Diagnosis/Problems (1) Lung mass (2) Infection, Serratia (3) Pneumothorax after biopsy (4) Cough (5) COPD (chronic obstructive pulmonary disease) Clinical Quality Measures DVT/VTE Risk/Contraindication: Risk Factor Score Per Nursin RFS Level Per Nursing on Admit: 4+=Very High RODRICK CABRERA DO Mar 11, 2019 09:37 POS
--- NOTE | 2019-03-11 10:18 | Diagnostic Imaging Report ---
INDICATION: Shortness of breath Portable chest 9:59 AM There are postoperative changes from CABG surgery. There are emphysematous changes in the lungs. There is a consolidation in the right lower lung that has shown continued improvement. Right thoracostomy tubes remain in place. There is no effusion or pneumothorax. There continues to be some subcutaneous emphysema. IMPRESSION: Slight interval improvement of the consolidation of the right lower lung. Dictated by: Dictated on workstation # [id number]
[2019-03-11 16:00] VITALS: BP 144/79
[2019-03-11] MEDS: TAMSULOSIN 0.4 MG (FLOMAX) CAP PO SCH (17:08)
--- NOTE | 2019-03-11 17:20 | NUR ---
This nurse received telephone orders from to clamp patients lateral chest tube and to order a chest xray to be done in the morning. Posterior chest tube remains clamped per orders.
--- NOTE | 2019-03-11 18:10 | Progress Note ---
Standard Progress Note Progress Notes/Assess & Plan Date Seen by a Provider: Mar 11, 2019 Time Seen by a Provider: 18:07 Progress/Assessment & Plan Patient is breathing better today and the pneumothorax is much better after a second chest tube was placed. He is having this class and and repeat x-rays done to see if this could be removed by tomorrow. He has decided that he wanted to receive chemoradiation closer to home in [place]. Once he is discharged from the hospital, I advised him to make consultation with both medical oncology and radiation oncology in [place] and to carry his records including the pathology report, PET scan and PFT results with him. I have not scheduled a follow-up appointment for him at my clinic. I'll be happy to see him in the future if I could be of help. RAHEL CLEARY Mar 11, 2019 18:09 POS
[2019-03-11 19:00] VITALS: BP 133/62
[2019-03-11 23:35] VITALS: BP 136/71
[2019-03-12 03:36] VITALS: BP 128/66
[2019-03-12 03:40] LABS: BASOPHILS % (AUTO) 0 % (0-10); EOSINOPHILS % (AUTO) 0 % (0-10); HEMATOCRIT 40 % (40-54); HEMOGLOBIN 12.9 G/DL (13.3-17.7); LYMPHOCYTES # (AUTO) 0.6 X 10^3 (1.0-4.0); LYMPHOCYTES % (AUTO) 5 % (12-44); MEAN CORPUSCULAR HEMOGLOBIN 29 PG (25-34); MEAN CORPUSCULAR HGB CONC 32 G/DL (32-36); MEAN CORPUSCULAR VOLUME 91 FL (80-99); MEAN PLATELET VOLUME 9.5 FL (7.4-10.4); MONOCYTES # (AUTO) 0.9 X 10^3 (0.0-1.0); MONOCYTES % (AUTO) 7 % (0-12); NEUTROPHILS # (AUTO) 11.1 X 10^3 (1.8-7.8); NEUTROPHILS % (AUTO) 88 % (42-75); PLATELET COUNT 203 10^3/uL (130-400); RED CELL DISTRIBUTION WIDTH 15.1 % (10.0-14.5); WHITE BLOOD COUNT 12.7 10^3/uL (4.3-11.0)
[2019-03-12 04:00] LABS: BUN/CREATININE RATIO 31; CALCIUM 8.2 MG/DL (8.5-10.1); CARBON DIOXIDE 28 MMOL/L (21-32); CHLORIDE 104 MMOL/L (98-107); CREATININE SERUM 0.74 MG/DL (0.60-1.30); GFR ESTIMATED > 60; GLUCOSE 111 MG/DL (70-105); MAGNESIUM 2.4 MG/DL (1.6-2.4); PHOSPHORUS 3.1 MG/DL (2.3-4.7); POTASSIUM 4.4 MMOL/L (3.6-5.0); SODIUM 139 MMOL/L (135-145)
[2019-03-12] MEDS: POTASSIUM CL 10MEQ/50ML IVPB 50 ML IV SCH (04:40)
[2019-03-12] MEDS: KCL 20 MEQ TAB (K-DUR) PO SCH (04:40)
[2019-03-12] MEDS: MAGNESIUM 1 GM/100 ML IVPB 100 ML IV SCH (04:40)
[2019-03-12] MEDS: NYSTATIN ORAL SUSP 5 ML UDC PO SCH ×3 (05:03→17:15)
[2019-03-12] MEDS: ENOXAPARIN 40 MG/0.4 ML (LOVENOX) SYR SC SCH (05:03)
[2019-03-12] MEDS: cefTRIAXone FOR IV USE 1,000 MG in WATER (STERILE) FOR INJECTION 10 ML IV SCH (05:03)
[2019-03-12] MEDS: methylPREDNISolone 40 MG/ML (Solu-MEDROL) VIAL IV SCH ×3 (05:03→17:15)
--- NOTE | 2019-03-12 06:30 | Pulmonary Progress Note ---
Subjective Time Seen by a Provider: 07:01 Subjective/Events-last exam Pt is doing better. Sepsis Event Evaluation Height, Weight, BMI Height: '" Weight: lbs. oz. kg; 23.00 BMI Method: Exam Exam Vital Signs Date Time Temp Pulse Resp B/P (MAP) Pulse Ox O2 Delivery O2 Flow Rate FiO2 03/12/19 03:36 36.6 94 18 128/66 (86) 96 Nasal Cannula 3.00 03/12/19 01:00 81 03/11/19 23:35 36.5 85 19 136/71 (92) 96 Nasal Cannula 3.00 03/11/19 20:00 Nasal Cannula 3.00 03/11/19 19:00 36.8 95 18 133/62 (85) 96 Nasal Cannula 3.00 03/11/19 19:00 101 03/11/19 18:21 92 Nasal Cannula 3.00 03/11/19 16:00 82 18 144/79 (100) 97 Nasal Cannula 3.00 03/11/19 15:42 36.8 03/11/19 14:43 93 Nasal Cannula 3.00 03/11/19 13:00 91 03/11/19 11:32 36.8 03/11/19 10:56 94 Nasal Cannula 3.00 03/11/19 08:11 91 Nasal Cannula 3.00 03/11/19 08:00 36.6 92 18 120/66 (84) 94 Nasal Cannula 3.00 03/11/19 08:00 Nasal Cannula 3.00 03/11/19 07:00 76 I & O 03/12/19 07:00 Intake Total 700 ml Output Total 750 ml Balance -50 ml Height & Weight Height: '" Weight: lbs. oz. kg; 23.00 BMI Method: General Appearance: No Apparent Distress, WD/WN HEENT: PERRL/EOMI Neck: Full Range of Motion, Normal Inspection Respiratory: Chest Non Tender, Lungs Clear, Normal Breath Sounds, No Accessory Muscle Use, No Respiratory Distress Cardiovascular: Regular Rate, Rhythm, No Edema, No Gallop, No JVD, No Murmur, Normal Peripheral Pulses Capillary Refill: Less Than 3 Seconds Peripheral Pulses: 2+ Dorsalis Pedis (R), 2+ Left Dors-Pedis (L), 2+ Radial Pulses (R), 2+ Radial Pulses (L) Gastrointestinal: normal bowel sounds, non tender, soft Extremity: Non Tender, No Calf Tenderness, No Pedal Edema Neurologic/Psychiatric: Alert, Oriented x3, No Motor/Sensory Deficits, Normal Mood/Affect Skin: Normal Color, Warm/Dry Results Lab Laboratory Tests 03/11/19 02:55 03/12/19 03:10 Assessment/Plan Assessment/Plan Lung mass s/p CT bx -S/P second chest tube -Cytology is positive for adenocarcinoma -Will D/C upper chest tube. Repeat CXR at 9AM. If pt is still doing well after next CXR and CXR still looks good he will be ok for discharge from pulmonary standpoint. Iatrogenic right right PTX with continuous air leak -S/P 2 chest tubes upper and lower -Will continue to monitor and continue suction. 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 Hx CAD last stent was 6yrs ago COPDAE -Pt will probably need home 02 -Duoneb Q 4 and Advair -solumedrol 40 IV Q 6 -Oxygen -- PT does not have home 02 Strong nonproductive cough -SVNS -Solumedrol Iatrogenic right PTX s/p chest tube -CT 03/07 showed a small right anterior pneumothorax -Continue oxygen -will continue to monitor Urinary retention secondary to BPH -S/p Hoyt catheter -Flomax DVT Prophylaxis -Lovenox Sub Q daily. HX of CAD RAMIRO TAO DO Mar 12, 2019 06:30 POS
[2019-03-12] MEDS: RT-ALBUTEROL/IPRATROPIUM 3 ML (DUONEB) VIAL INH SCH ×4 (07:58→19:50)
[2019-03-12 08:00] VITALS: BP 137/71
[2019-03-12] MEDS: RT-ADVAIR HFA 115/21 MCG PER PUFF IH SCH ×2 (08:00→19:50)
--- NOTE | 2019-03-12 09:29 | Diagnostic Imaging Report ---
INDICATION: Shortness of breath COMPARISON: 03/11 FINDINGS: Right lung mass unchanged. A pigtail drainage catheter lateral to that density in the right lower chest unchanged. Subcutaneous emphysema on the right has mildly decreased. No visualized pneumothorax. There is background COPD chronic. Sternal wires midline. IMPRESSION: Mild reduction in soft tissue gas. No appreciable pneumothorax or adverse interval development. Dictated by: Dictated on workstation # [id number]
--- NOTE | 2019-03-12 09:43 | Progress Note - Hospitalist ---
Subjective HPI/CC On Admission Date Seen by Provider: Mar 12, 2019 Time Seen by Provider: 09:30 on the 15th patient underwent fine-needle biopsy of a PET scan positive right sided lung mass. Procedure was complicated by pneumothorax requiring chest tube placement and overnight monitoring. Patient reports pain at chest tube site. Subjective/Events-last exam Patient doing much better 1 chest tube has been pulled and repeat chest x-ray today at 1 p.m. Home O2 will need to be completed to start home oxygen Denzel wraps will be placed on the lower extremities or the edema Lasix 20 MG IV times one will be ordered also Review of Systems General: Fatigue Pulmonary: Dyspnea Cardiovascular: Edema Objective Exam Vital Signs Vital Signs Date Time Temp Pulse Resp B/P (MAP) Pulse Ox O2 Delivery O2 Flow Rate FiO2 03/12/19 08:00 36.8 87 22 137/71 (93) 95 Nasal Cannula 3.00 Capillary Refill : Less Than 3 Seconds General Appearance: No Apparent Distress, WD/WN, Chronically ill Respiratory: Chest Non Tender, Lungs Clear, Normal Breath Sounds, No Accessory Muscle Use, No Respiratory Distress Cardiovascular: Regular Rate, Rhythm, No Gallop, No JVD, No Murmur, Normal Peripheral Pulses Extremity: Pedal Edema Neurologic/Psychiatric: Alert, Oriented x3, No Motor/Sensory Deficits, Normal Mood/Affect Results/Procedures Lab Laboratory Tests 03/12/19 03:10 Patient resulted labs reviewed. Assessment/Plan Assessment and Plan Assess & Plan/Chief Complaint Assessment: PTX right requiring 2 chest tubes now DC 1 and another one to be discontinued later today hopefully COPD severe AECOPD Bronchitis Smoker Lung mass biopsy + for cancer Edema Plan: PTX management Wide Denzel wraps Lasix 20 MG IV 1 Diagnosis/Problems Diagnosis/Problems (1) Lung mass (2) Infection, Serratia (3) Pneumothorax after biopsy (4) Cough (5) COPD (chronic obstructive pulmonary disease) Clinical Quality Measures DVT/VTE Risk/Contraindication: Risk Factor Score Per Nursin RFS Level Per Nursing on Admit: 4+=Very High RODRICK CABRERA DO Mar 12, 2019 09:43 POS
--- NOTE | 2019-03-12 10:29 | NUR ---
SPO2 DROPPED TO 88% ON ROOM AIR @ REST. REPLACED O2 @ 2 LPM, SPO2 WENT UP TO 94%, WALKED PT FOR 3 MINUTES SPO2 STAYED ABOVE 90% WITH EXERTION. Addendum: 03/12/19 at 1136 by HANDY ARBOLEDA RT Amended: Links added.
[2019-03-12] MEDS ORDERED: FUROSEMIDE 40 MG/4 ML INJ (LASIX) IVP ONE (10:30)
--- NOTE | 2019-03-12 11:31 | NUR ---
DISCHARGE PLANNING: This RN is made aware that patient will need O2 at discharge. Patient would like for his to be notified regarding the DME choice agency. I have attempted to reach her on her cell and left message. I have attempted to call her work but she was not thuy to come to the phone. Will await her return call so that I can set up O2 for discharge.
--- NOTE | 2019-03-12 13:11 | Diagnostic Imaging Report ---
Portable erect AP chest at 12:54. Indication: In the interval since the prior exam performed earlier today at 3:33 AM, the small caliber right-sided chest tube along the periphery of the lower thorax on the right has been removed. The radiopaque line along the periphery of the right upper lobe seen previously is again evident. There is another radiopaque line now present in this area. There is still no sign of a pneumothorax on the right. There is persistent subcutaneous emphysema along the periphery of the right lower thorax area. The nodular area of increased density in the right lung base seen previously is again evident. The left lung is clear. The heart is stable in size. The sternotomy wires and surgical clips noted previously are again evident and no different. The mediastinum is not widened. The osseous structures are intact. The orthopedic hardware overlying the lower cervical spine seen previously is unchanged. Impression: 1. In the interval since the prior study, the small caliber chest tube along the periphery of the lower thorax on the right has been removed. There is no sign of pneumothorax. 2. The overall appearance of the chest has not changed significantly otherwise. 3. There is now radiopaque tubing in the right axilla in the region of the previously noted tube along the periphery of the right upper lung. Dictated by: Dictated on workstation # [id number]
--- NOTE | 2019-03-12 13:18 | NUR ---
DISCHARGE PLANNING: Patient is planned for discharge tomorrow. He is needing new O2 set up at home. At patient's request this RN spoke with his about choice DME provider. She called and spoke to [facility] in [place] and then called me back saying that is their choice. I then sent order, qualifying study, clinical information to support need and [employer]AC[employer]. [facility] was going to call public transit bus driver and ask him to leave a portable tank here for tomorrows discharge. Updated patient on the above. Updated RN on the above as well as patient's request for release of information for [place] [facility].
[2019-03-12] MEDS: TAMSULOSIN 0.4 MG (FLOMAX) CAP PO SCH (17:15)
[2019-03-12 19:50] VITALS: BP 146/89
[2019-03-12 20:00] VITALS: BP 137/71
[2019-03-13] VITALS: BP 126/67
[2019-03-13 00:08] VITALS: BP 126/67
[2019-03-13] MEDS: SIMvastatin 10 MG (ZOCOR) TAB PO SCH (00:11)
[2019-03-13] MEDS: NYSTATIN ORAL SUSP 5 ML UDC PO SCH ×2 (00:11→06:44)
[2019-03-13] MEDS: methylPREDNISolone 40 MG/ML (Solu-MEDROL) VIAL IV SCH ×2 (00:12→06:44)
[2019-03-13 03:25] LABS: BASOPHILS % (AUTO) 0 % (0-10); EOSINOPHILS % (AUTO) 0 % (0-10); HEMATOCRIT 40 % (40-54); HEMOGLOBIN 13.1 G/DL (13.3-17.7); LYMPHOCYTES # (AUTO) 0.6 X 10^3 (1.0-4.0); LYMPHOCYTES % (AUTO) 4 % (12-44); MEAN CORPUSCULAR HEMOGLOBIN 30 PG (25-34); MEAN CORPUSCULAR HGB CONC 33 G/DL (32-36); MEAN CORPUSCULAR VOLUME 90 FL (80-99); MEAN PLATELET VOLUME 9.7 FL (7.4-10.4); MONOCYTES # (AUTO) 0.7 X 10^3 (0.0-1.0); MONOCYTES % (AUTO) 5 % (0-12); NEUTROPHILS # (AUTO) 12.6 X 10^3 (1.8-7.8); NEUTROPHILS % (AUTO) 91 % (42-75); PLATELET COUNT 189 10^3/uL (130-400); RED CELL DISTRIBUTION WIDTH 14.9 % (10.0-14.5); WHITE BLOOD COUNT 13.8 10^3/uL (4.3-11.0)
[2019-03-13 03:42] VITALS: BP 120/74
[2019-03-13 03:45] LABS: BUN/CREATININE RATIO 35; CALCIUM 8.3 MG/DL (8.5-10.1); CARBON DIOXIDE 26 MMOL/L (21-32); CHLORIDE 104 MMOL/L (98-107); CREATININE SERUM 0.72 MG/DL (0.60-1.30); GFR ESTIMATED > 60; GLUCOSE 104 MG/DL (70-105); MAGNESIUM 2.4 MG/DL (1.6-2.4); PHOSPHORUS 3.3 MG/DL (2.3-4.7); POTASSIUM 4.4 MMOL/L (3.6-5.0); SODIUM 138 MMOL/L (135-145)
[2019-03-13] MEDS: KCL 20 MEQ TAB (K-DUR) PO SCH (05:44)
[2019-03-13] MEDS: POTASSIUM CL 10MEQ/50ML IVPB 50 ML IV SCH (05:44)
[2019-03-13] MEDS: MAGNESIUM 1 GM/100 ML IVPB 100 ML IV SCH (05:44)
[2019-03-13] MEDS: RT-ALBUTEROL/IPRATROPIUM 3 ML (DUONEB) VIAL INH SCH (06:21)
[2019-03-13] MEDS: RT-ADVAIR HFA 115/21 MCG PER PUFF IH SCH (06:24)
[2019-03-13] MEDS: cefTRIAXone FOR IV USE 1,000 MG in WATER (STERILE) FOR INJECTION 10 ML IV SCH (06:44)
[2019-03-13] MEDS: ENOXAPARIN 40 MG/0.4 ML (LOVENOX) SYR SC SCH (06:44)
--- NOTE | 2019-03-13 08:26 | Diagnostic Imaging Report ---
CHEST 1 VIEW, AP/PA ONLY Indication: Shortness of breath Comparison: 03/12/2019 Findings: Stable right-sided small bore pigtail pleural catheter. Right basilar pulmonary mass is unchanged. No new airspace disease. No pleural effusion or pneumothorax. Right chest wall subcutaneous gas is unchanged. Impression: 1. There remains no pneumothorax and the right chest tube is in place. Dictated by: Dictated on workstation # [id number]
[2019-03-13 09:00] VITALS: BP 126/64
--- NOTE | 2019-03-13 09:46 | Diagnostic Imaging Report ---
EXAMINATION: Portable erect AP chest at 0851 hours. INDICATION: Respiratory distress. FINDINGS: In the interval since the exam performed on 03/13/2019 the radiopaque tube overlying the right thorax has been removed. The radiopaque tubing over the right axilla seen previously is also no longer evident. There is no sign of a pneumothorax on the right. There is still subcutaneous emphysema along the periphery of the right thorax. The rounded density in the right lung base seen previously is again evident and no different. The lungs are otherwise generally clear. There may be a very small amount of fluid in the left lung base. The heart is stable in size. The sternotomy wires and surgical clips noted previously are again evident and no different. The mediastinum is not widened. The osseous structures are intact. IMPRESSION: Aside from removal of the radiopaque tubing overlying the right thorax there has been no adverse change since the prior exam. There is still no sign of a pneumothorax on the right. Dictated by: Dictated on workstation # [id number]
--- NOTE | 2019-03-13 09:47 | Discharge Summary ---
Discharge Summary Hospital Course Was the Problem List Reviewed?: Yes Problems/Dx: (1) Lung mass (2) Infection, Serratia (3) Pneumothorax after biopsy (4) Cough (5) COPD (chronic obstructive pulmonary disease) Hospital Course Date of Admission: Mar 01, 2019 at 13:03 Admission Diagnosis : Family Physician/Provider: Kevin Vaca Date of Discharge: 03/13/19 Discharge Diagnosis: PTX s/p biopsy of lung mass, chest tubes x 2 required for 12 days, lung cancer new dx, smoker, AECOPD Hospital Course: Pt had a lengthy hospital course for 13 days after suffering a pneumothorax after a pulmonary bronchoscopy biopsy. Due to the severity of COPD he did have an exacerbation required IV antibiotics and steroids for pneumonia exacerbation and required chest tube, and another chest tube was required by interventional radiology due to the severity of his pneumothorax. He was deemed stable for DC, Chest x ray repeat looked good, Home O2 orders were initiated and will have close follow up and hematology/oncology consultation for new diagnosis of lung cancer. Labs and Pending Lab Test: Laboratory Tests 03/13/19 03:00: White Blood Count 13.8H, Red Blood Count 4.44, Hemoglobin 13.1L, Hematocrit 40, Mean Corpuscular Volume 90, Mean Corpuscular Hemoglobin 30, Mean Corpuscular Hemoglobin Concent 33, Red Cell Distribution Width 14.9H, Platelet Count 189, Mean Platelet Volume 9.7, Neutrophils (%) (Auto) 91H, Lymphocytes (%) (Auto) 4L, Monocytes (%) (Auto) 5, Eosinophils (%) (Auto) 0, Basophils (%) (Auto) 0, Neutrophils # (Auto) 12.6H, Lymphocytes # (Auto) 0.6L, Monocytes # (Auto) 0.7, Eosinophils # (Auto) 0.0, Basophils # (Auto) 0.0, Sodium Level 138, Potassium Level 4.4, Chloride Level 104, Carbon Dioxide Level 26, Anion Gap 8, Blood Urea Nitrogen 25H, Creatinine 0.72, Estimat Glomerular Filtration Rate > 60, BUN/Creatinine Ratio 35, Glucose Level 104, Calcium Level 8.3L, Phosphorus Level 3.3, Magnesium Level 2.4 Microbiology 03/05/19 Gram Stain - Final, Complete 03/05/19 Body Fluid Culture - Final, Complete No growth 03/05/19 Gram Stain - Final, Complete 03/05/19 Sputum Culture - Final, Complete Serratia marcescens Home Meds Active Prednisone 10 Mg Tab.ds.pk 10 Mg PO DAILY Take 6 tabs(60mg)daily,decrease by 1 tab(10MG)daily. Cefdinir 300 Mg Capsule 300 Mg PO BID Reported Flomax (Tamsulosin HCl) 0.4 Mg Cap 0.4 Mg PO 1730 Proair Hfa (Albuterol Sulfate) 1 Puff Puff 2 Puff INH Q4H PRN Albuterol Sulfate 2.5 Mg/3 Ml Vial.neb 2.5 Mg NEB Q4H PRN Trelegy Ellipta 100-62.5-25 (Fluticasone/Umeclidin/Vilanter) 1 Each Blst.w.dev 1 Puff INH 0700 Pravastatin Sodium 20 Mg Tablet 20 Mg PO 0100 Clopidogrel (Clopidogrel Bisulfate) 75 Mg Tablet 75 Mg PO 0700 Assessment/Pt Instructions [facility] 1 week Discharge Planning: <30 minutes discharge planning Discharge Instructions Discharge Diet: No Restrictions Activity as Tolerated: Yes Discharge Physical Examination Vital Signs Vital Signs Date Time Temp Pulse Resp B/P (MAP) Pulse Ox O2 Delivery O2 Flow Rate FiO2 03/13/19 07:48 Nasal Cannula 2.00 03/13/19 07:00 90 03/13/19 06:21 93 03/13/19 03:42 36.8 18 120/74 (89) General Appearance: No Apparent Distress, WD/WN Allergies: Coded Allergies: No Known Drug Allergies (Unverified , 02/06/19) Discharge Summary Date of Admission Mar 01, 2019 at 13:03 Date of Discharge Discharge Date: Mar 04, 2019 Admission Diagnosis 1. Pneumothorax post fine needle biopsy of her right sided PET scan positive lung mass in a smoker high risk for malignancy. With chest tube placement pneumothorax resolved management per Dr. Baumann. 2. Underlying tobacco-related COPD. Discharge Diagnosis Assessment: PTX right requiring 2 chest tubes now DC 1 and another one to be discontinued later today hopefully COPD severe AECOPD Bronchitis Smoker Lung mass biopsy + for cancer Edema Plan: PTX management Wide Denzel wraps Lasix 20 MG IV 1 (1) Lung mass (2) Infection, Serratia (3) Pneumothorax after biopsy (4) Cough (5) COPD (chronic obstructive pulmonary disease) Clinical Quality Measures DVT/VTE Risk/Contraindication: Risk Factor Score Per Nursin RFS Level Per Nursing on Admit: 4+=Very High RODRICK CABRERA DO Mar 13, 2019 09:47 POS
== END 2019-03-13 10:35 | disposition home or self-care (01) | DRG 199 ==
LOC: RAD 07:02 → SDC 09:53 → RAD 11:17 → ICU 11:18 → OBSVTOIN 13:03 → ICU 03-12 22:20
PROVIDERS: ADMIT Family Medicine; ATTEND Family Medicine
PROC: 0W9930Z Drainage of Right Pleural Cavity with Drainage Device, Percutaneous Approach (ICD-10-PCS; principal; 2019-03-01)
PROC: 0BBD3ZX Excision of Right Middle Lung Lobe, Percutaneous Approach, Diagnostic (ICD-10-PCS; 2019-03-01)
DX: J95.811 Postprocedural pneumothorax (principal); J95.812 Postprocedural air leak; I95.9 Hypotension, unspecified; J96.90 Respiratory failure, unspecified, unspecified whether with hypoxia or hypercapnia; C34.11 Malignant neoplasm of upper lobe, right bronchus or lung; I25.10 Atherosclerotic heart disease of native coronary artery without angina pectoris; F17.210 Nicotine dependence, cigarettes, uncomplicated; E78.00 Pure hypercholesterolemia, unspecified; N40.1 Benign prostatic hyperplasia with lower urinary tract symptoms; R33.8 Other retention of urine; K21.9 Gastro-esophageal reflux disease without esophagitis; F32.9 Major depressive disorder, single episode, unspecified; M19.91 Primary osteoarthritis, unspecified site; Z95.1 Presence of aortocoronary bypass graft; Y84.8 Other medical procedures as the cause of abnormal reaction of the patient, or of later complication, without mention of misadventure at the time of the procedure; B96.89 Other specified bacterial agents as the cause of diseases classified elsewhere; R53.1 Weakness; J43.9 Emphysema, unspecified; Z79.02 Long term (current) use of antithrombotics/antiplatelets; Z95.5 Presence of coronary angioplasty implant and graft; Z79.51 Long term (current) use of inhaled steroids; Z79.52 Long term (current) use of systemic steroids
CPT/HCPCS: 36415; 71045; 71250; 71260; 77012; 80048; 83735; 84100; 85007; 85025; 85027; 85610; 85730; 87070; 87077; 87081; 87186; 87205; 88112; 88305; 88344; 94640; 94760; 94761; 99156

== ENCOUNTER → 2019-07-30 | Outpatient (CLI) | payer MEDICARE, OTHER ==
[~2019-07-30] MED LIST changes: +ALBU2.5V4 NEB; +CEFD300C3 PO; +FLUT1BLS3 INH; +HOLD METFORMIN - RECEIVED CONTRAST 20 ML VIAL IV SCH; +IOHEXOL 350 MG/ML 100 ML (OMNIPAQUE 350) VIAL IV ONE; +NS 100 ML (IVPB) BAG IV ONE; +PRED10TA22 PO; +RT-ALBUINH INH; -TAMS0.4C98 PO; +TMSL.4C PO
[2019-07-30 11:08] LABS: BASOPHILS % (AUTO) 0 % (0-10); EOSINOPHILS # (AUTO) 0.1 10^3/uL (0.0-0.3); EOSINOPHILS % (AUTO) 2 % (0-10); HEMATOCRIT 42 % (40-54); HEMOGLOBIN 14.1 G/DL (13.3-17.7); LYMPHOCYTES # (AUTO) 0.9 X 10^3 (1.0-4.0); LYMPHOCYTES % (AUTO) 21 % (12-44); MEAN CORPUSCULAR HEMOGLOBIN 29 PG (25-34); MEAN CORPUSCULAR HGB CONC 34 G/DL (32-36); MEAN CORPUSCULAR VOLUME 86 FL (80-99); MEAN PLATELET VOLUME 9.8 FL (7.4-10.4); MONOCYTES # (AUTO) 0.3 X 10^3 (0.0-1.0); MONOCYTES % (AUTO) 7 % (0-12); NEUTROPHILS # (AUTO) 3.2 X 10^3 (1.8-7.8); NEUTROPHILS % (AUTO) 70 % (42-75); PLATELET COUNT 187 10^3/uL (130-400); RED CELL DISTRIBUTION WIDTH 13.9 % (10.0-14.5); WHITE BLOOD COUNT 4.5 10^3/uL (4.3-11.0)
[2019-07-30 11:22] LABS: ALANINE AMINOTRANSFERASE 10 U/L (0-55); ALBUMIN 4.3 GM/DL (3.2-4.5); ALKALINE PHOSPHATASE 166 U/L (40-136); BILIRUBIN,TOTAL 0.5 MG/DL (0.1-1.0); BUN/CREATININE RATIO 13; CALCIUM 9.5 MG/DL (8.5-10.1); CARBON DIOXIDE 28 MMOL/L (21-32); CHLORIDE 98 MMOL/L (98-107); CREATININE SERUM 0.78 MG/DL (0.60-1.30); GFR ESTIMATED > 60; GLUCOSE 102 MG/DL (70-105); POTASSIUM 3.9 MMOL/L (3.6-5.0); SODIUM 136 MMOL/L (135-145); TOTAL PROTEIN 7.4 GM/DL (6.4-8.2)
--- NOTE | 2019-07-30 13:50 | Diagnostic Imaging Report ---
PROCEDURE: CT chest with and without contrast. TECHNIQUE: Multiple contiguous axial images were obtained through the chest before and after administration of intravenous contrast. Auto Exposure Controls were utilized during the CT exam to meet ALARA standards for radiation dose reduction. INDICATION: Malignant neoplasm of the bronchus/lung COMPARISON: 03/10/2019, 03/07/2019, 01/25/2019 FINDINGS: No pathologically enlarged lymph nodes within the chest. Multiple calcified mediastinal and hilar lymph nodes are again identified. Postsurgical changes of a CABG. No aneurysmal dilatation of thoracic aorta. The heart is within normal limits in size. No pericardial effusion. No pleural effusion. A 3.4 x 1.6 cm irregular and spiculated nodular density is identified within the right middle lobe. This is at the location of previously noted mass lesion. This mass currently measures 3.4 x 1.6 x 2.4 cm when previously it measured 4.1 x 3.4 x 3.6 cm. Therefore, this has decreased in size from the prior exam. Distortion in the adjacent parenchyma is also present. Calcified granuloma within the right upper lobe. Subpleural scarring and/or atelectasis within the right lower lobe is again identified, appearing similar. No new pulmonary nodule or opacity. Secretions noted within the trachea. Calcified hepatic and splenic granuloma. 2.1 cm ill-defined region of enhancement is noted within the hepatic dome, best seen on series 8, image 138. Additionally, there is suggestion of a 1.5 cm peripherally enhancing lesion within the posterior and inferior aspect of the right hepatic lobe, series 8, image 180. Visualized upper abdomen is otherwise unremarkable. Postsurgical changes within the cervical spine. Scattered osseous degenerative changes without acute osseous abnormality. IMPRESSION: Previously noted right middle lobe mass has decreased in size since the prior examination, consistent with a good interval response to therapy. Suggestion of enhancing lesions within the liver as described above. Recommend a dedicated CT of the abdomen with contrast for further evaluation as these could relate to underlying developing metastatic disease. Background emphysematous changes and evidence of chronic granulomatous disease. Dictated by: Dictated on workstation # [id number]
== END ==
LOC: RAD 10:31
PROVIDERS: ATTEND Internal Medicine Hematology & Oncology
DX: C34.2 Malignant neoplasm of middle lobe, bronchus or lung (principal); J43.9 Emphysema, unspecified
CPT/HCPCS: 36415; 71270; 80053; 83615; 85025

== ENCOUNTER → 2020-02-18 | Outpatient (CLI) | payer MEDICARE, OTHER ==
[~2020-02-18] MED LIST changes: +CATHETER FLUSH 10 ML SYR IV PRN
[2020-02-18 09:45] LABS: BUN/CREATININE RATIO 12; CREATININE SERUM 0.69 MG/DL (0.60-1.30); GFR ESTIMATED > 60
--- NOTE | 2020-02-18 11:29 | Diagnostic Imaging Report ---
CT of the neck and chest with contrast. Indication: Lung cancer The previous CT chest exam of 07/30/2019 noted a poorly defined mass in the right middle lobe measuring 3.4 x 1.6 x 2.4 cm in maximum transverse AP and longitudinal dimensions. On this exam the mass does measure somewhat smaller is now estimated to 2.7 x 1.2 x 2.4 cm. As on the prior exam there is still some distortion of the adjacent lung parenchyma. The spiculated density in the posterior aspect of the right lung base seen previously is again evident and no different. The left lung remains clear. The heart size is within normal limits and stable compared to the prior exam. Extensive coronary calcifications are again visualized. There is also a prior sternotomy. The ascending aorta is not abnormally dilated and there is no sign of dissection. The pulmonaries were not well opacified and consequently difficult to assess for pulmonary embolus. There is no definite defect to suggest a pulmonary embolus. There is no mediastinal or hilar adenopathy. There are no prior CT neck examinations available for comparison. There is no mass or adenopathy involving the neck to suggest neoplastic disease. There is no sign of an acute abnormality. The thyroid gland is not well-visualized due to streak artifact. The parotid and submandibular glands are generally unremarkable. The intracranial contents were visualized show no sign of an acute abnormality. The sections through the upper abdomen are unremarkable for an acute abnormality. The bone windows show no sign of a fracture or for destructive lesion. There has been a prior anterior fusion of C5-C6 and C7. Impression: 1. The poorly defined mass in the right middle lobe seen previously does measure slightly smaller on this exam. There is no new parenchymal lung abnormality noted otherwise. 2. There is no sign of an acute cardiopulmonary abnormality although the pulmonary arteries were not well opacified and consequently difficult to assess for pulmonary embolus. 3. There is coronary artery disease and no evidence of prior cardiac surgery. 4. There is no mass or adenopathy involving the neck to suggest neoplastic disease. Dictated by: Dictated on workstation # [id number]
== END ==
LOC: RAD 10:15
PROVIDERS: ATTEND Internal Medicine Hematology & Oncology
DX: C34.2 Malignant neoplasm of middle lobe, bronchus or lung (principal); I25.10 Atherosclerotic heart disease of native coronary artery without angina pectoris
CPT/HCPCS: 36415; 70491; 71260; 82565; 84520